=== PATIENT | male | born 1965 | race Caucasian/White ===

== ENCOUNTER 2020-10-17 12:56 | Inpatient (IN) ==
[2020-10-17] MEDS ORDERED: Perflutren Lipid Microsphere 1.3 ML in 0.9 % Sodium Chloride 8.7 ML IVP PRN (15:10)
[2020-10-17] MEDS ORDERED: Naloxone 0.4 MG/ML INJ IVP PRN (16:06)
[2020-10-17] MEDS ORDERED: Albuterol 2.5 MG/3 ML NEBULIZER IH PRN (16:08)
[2020-10-17] MEDS ORDERED: Simethicone 80 MG TAB.CHEW PO PRN (16:10)
[2020-10-17] MEDS ORDERED: *HR* OxyCODONE/APAP 5/325 TABLET GTUBE PRN (16:10)
[2020-10-17] MEDS ORDERED: HydrOXYzine SYP 10 MG/5 ML UDC GTUBE PRN (16:10)
[2020-10-17] MEDS ORDERED: Artificial Tears SOLN 15 ML BOTTLE BOTH EYES PRN (16:14)
[2020-10-17] MEDS ORDERED: FentaNYL (PF) 1,000 MCG/100 ML IV.SOLN IVC SCH (16:15)
[2020-10-17] MEDS ORDERED: Vancomycin 1 EACH in 0.9 % Sodium Chloride 250 ML IVPB PRN (17:00)
[2020-10-17] MEDS ORDERED: Piperacillin/Tazobactam 3.375 GM in 0.9 % Sodium Chloride Mini Bag 100 ML IVPB SCH (17:00)
[2020-10-17] MEDS: Piperacillin/Tazobactam 3.375 GM in 0.9 % Sodium Chloride Mini Bag 100 ML IVPB SCH (17:30)
[2020-10-17] MEDS: carvediloL 6.25 MG TABLET GTUBE SCH (17:30)
[2020-10-17 17:52] LABS: Blood Gas VT 400 cc; Mixed Venous Blood pCO2 52 mmHg (44-46); Mixed Venous Blood pH 7.31 pH Units (7.34-7.36); Mixed Venous Blood pO2 35 mmHg (35-45)
[2020-10-17] MEDS: Dexmedetomidine HCl 400 MCG/100 ML MLS IVC SCH (18:03)
[2020-10-17] MEDS: Ipratropium/Albuterol Neb 3 ML IH SCH ×2 (19:37→23:36)
[2020-10-17] MEDS: Artificial Tears SOLN 15 ML BOTTLE BOTH EYES SCH ×2 (20:43→23:30)
[2020-10-17] MEDS: Chlorhexidine Rinse 15 ML MOUTHWASH MM SCH (20:47)
[2020-10-17] MEDS: Metoclopramide 10 MG/10 ML UD.LIQ GTUBE SCH (20:47)
[2020-10-17] MEDS: Budesonide Neb 0.5 MG/2 ML IH SCH (23:36)
[2020-10-18] MEDS: Artificial Tears SOLN 15 ML BOTTLE BOTH EYES SCH ×6 (03:07→23:32)
[2020-10-18] MEDS: Ipratropium/Albuterol Neb 3 ML IH SCH ×6 (03:12→23:14)
[2020-10-18 05:37] LABS: Hematocrit 23.3 % (37.5-50.1); Hemoglobin 7.3 g/dL (12.9-16.9); Mean Corpuscular HGB Conc 31.3 g/dL (31.6-35.5); Mean Corpuscular Hemoglobin 30.5 pg (28.0-33.3); Mean Corpuscular Volume 97.5 fL (83.0-100.0); Mean Platelet Volume 9.2 fL (9.4-12.4); Platelet Count 187 K/mcL (140-400); Red Blood Count 2.39 M/mcL (4.19-5.50); Red Cell Distribution Width 15.4 % (11.5-14.5); White Blood Count 6.6 K/mcL (4.3-11.1)
[2020-10-18] MEDS: Piperacillin/Tazobactam 3.375 GM in 0.9 % Sodium Chloride Mini Bag 100 ML IVPB SCH ×2 (05:40→16:48)
[2020-10-18 05:45] LABS: INR 3.4; Prothrombin Time 37.6 Seconds (9.4-12.1)
[2020-10-18 05:56] LABS: Calcium 9.5 mg/dL (8.6-10.3); Magnesium 2.8 mg/dL (1.6-2.6); Potassium 5.2 mEq/L (3.5-5.1)
[2020-10-18] MEDS: Pantoprazole 40 MG VIAL IVP SCH (08:25)
[2020-10-18] MEDS: Ferrous Sulfate Oral Soln 300 MG/5 ML UDC GTUBE SCH (08:26)
[2020-10-18] MEDS: Sennosides/Docusate Sodium TABLET GTUBE SCH (08:26)
[2020-10-18] MEDS: Metoclopramide 10 MG/10 ML UD.LIQ GTUBE SCH ×3 (08:26→19:51)
[2020-10-18] MEDS: Chlorhexidine Rinse 15 ML MOUTHWASH MM SCH ×2 (08:26→19:51)
[2020-10-18] MEDS: Renal Vitamin 1 CAP CAPSULE PO SCH (08:27)
[2020-10-18] MEDS ORDERED: *HR* Heparin 10,000 UNIT/10 ML VIAL IV PRN (08:34)
[2020-10-18] MEDS ORDERED: 0.9 % Sodium Chloride 250 ML IVC PRN (08:34)
[2020-10-18] MEDS ORDERED: 0.9 % Sodium Chloride 1,000 ML PRIME SCH (08:45)
[2020-10-18 09:15] LABS: Hepatitis B Surface Antibody 33.24 mIU/mL
[2020-10-18 09:26] LABS: Hepatitis B Surface Antigen Nonreactive (Nonreactive)
[2020-10-18] MEDS: Budesonide Neb 0.5 MG/2 ML IH SCH ×2 (11:13→23:14)
[2020-10-18] MEDS: amLODIPine 5 MG TABLET PO SCH (13:26)
[2020-10-18] MEDS: carvediloL 6.25 MG TABLET GTUBE SCH ×2 (13:26→16:48)
[2020-10-18] MEDS ORDERED: Vancomycin 1,250 MG/262.5 ML IV.SOLN IVPB ONE (16:00)
[2020-10-18] MEDS: Dexmedetomidine HCl 400 MCG/100 ML MLS IVC SCH ×2 (19:52→22:02)
[2020-10-18] MEDS ORDERED: Melatonin 3 MG TABLET GTUBE SCH (21:00)
[2020-10-19] MEDS: Artificial Tears SOLN 15 ML BOTTLE BOTH EYES SCH ×6 (03:43→21:44)
[2020-10-19] MEDS: Ipratropium/Albuterol Neb 3 ML IH SCH ×7 (04:07→23:40)
[2020-10-19 05:50] LABS: Hematocrit 24.6 % (37.5-50.1); Hemoglobin 7.5 g/dL (12.9-16.9); Mean Corpuscular HGB Conc 30.5 g/dL (31.6-35.5); Mean Corpuscular Hemoglobin 29.9 pg (28.0-33.3); Mean Platelet Volume 8.9 fL (9.4-12.4); Platelet Count 185 K/mcL (140-400); Red Blood Count 2.51 M/mcL (4.19-5.50); Red Cell Distribution Width 15.4 % (11.5-14.5)
[2020-10-19 06:16] LABS: INR 3.5; Prothrombin Time 39.1 Seconds (9.4-12.1)
[2020-10-19] MEDS: Piperacillin/Tazobactam 3.375 GM in 0.9 % Sodium Chloride Mini Bag 100 ML IVPB SCH ×2 (06:51→17:53)
[2020-10-19] MEDS: Budesonide Neb 0.5 MG/2 ML IH SCH ×2 (07:28→23:26)
[2020-10-19 07:34] LABS: Calcium 9.4 mg/dL (8.6-10.3); Magnesium 2.4 mg/dL (1.6-2.6); Potassium 3.9 mEq/L (3.5-5.1)
[2020-10-19] MEDS ORDERED: 0.9 % Sodium Chloride 250 ML IVC PRN (07:55)
[2020-10-19] MEDS ORDERED: *HR* Heparin 10,000 UNIT/10 ML VIAL IV PRN (07:55)
[2020-10-19] MEDS: carvediloL 6.25 MG TABLET GTUBE SCH ×3 (08:08→17:52)
[2020-10-19] MEDS: Ferrous Sulfate Oral Soln 300 MG/5 ML UDC GTUBE SCH (08:50)
[2020-10-19] MEDS ORDERED: Zinc Sulfate 220 MG CAPSULE GTUBE SCH (09:00)
[2020-10-19] MEDS: amLODIPine 5 MG TABLET PO SCH (09:08)
[2020-10-19] MEDS: Chlorhexidine Rinse 15 ML MOUTHWASH MM SCH ×2 (09:41→21:43)
[2020-10-19] MEDS: Pantoprazole 40 MG VIAL IVP SCH (09:41)
[2020-10-19] MEDS: Metoclopramide 10 MG/10 ML UD.LIQ GTUBE SCH ×3 (09:41→21:43)
[2020-10-19] MEDS: Sennosides/Docusate Sodium TABLET GTUBE SCH (09:42)
[2020-10-19] MEDS: Renal Vitamin 1 CAP CAPSULE PO SCH (09:42)
[2020-10-19] MEDS ORDERED: Artificial Tears SOLN 15 ML BOTTLE BOTH EYES PRN (15:49)
[2020-10-19] MEDS ORDERED: Naloxone 0.4 MG/ML INJ IVP PRN (15:49)
[2020-10-19] MEDS ORDERED: Simethicone 80 MG TAB.CHEW PO PRN (15:49)
[2020-10-19] MEDS ORDERED: Perflutren Lipid Microsphere 1.3 ML in 0.9 % Sodium Chloride 8.7 ML IVP PRN (15:49)
[2020-10-19] MEDS ORDERED: 0.9 % Sodium Chloride 1,000 ML PRIME SCH (15:49)
[2020-10-19] MEDS ORDERED: Albuterol 2.5 MG/3 ML NEBULIZER IH PRN (15:49)
[2020-10-19] MEDS ORDERED: Piperacillin/Tazobactam 3.375 GM in 0.9 % Sodium Chloride Mini Bag 100 ML IVPB SCH ×2 (16:00→18:00)
[2020-10-19] MEDS ORDERED: levoFLOXacin 500 MG/100 ML 500 MG/100 ML BAG IVPB SCH (17:00)
[2020-10-19] MEDS: Melatonin 3 MG TABLET GTUBE SCH (21:43)
[2020-10-19] MEDS: Dexmedetomidine HCl 400 MCG/100 ML MLS IVC SCH (21:45)
[2020-10-20] MEDS: Artificial Tears SOLN 15 ML BOTTLE BOTH EYES SCH ×5 (03:27→20:29)
[2020-10-20] MEDS: Ipratropium/Albuterol Neb 3 ML IH SCH ×6 (04:16→23:17)
[2020-10-20] MEDS: Piperacillin/Tazobactam 3.375 GM in 0.9 % Sodium Chloride Mini Bag 100 ML IVPB SCH ×2 (04:44→16:38)
[2020-10-20] MEDS: Budesonide Neb 0.5 MG/2 ML IH SCH ×2 (07:38→19:54)
[2020-10-20] MEDS ORDERED: 0.9 % Sodium Chloride 250 ML IVC PRN (07:49)
[2020-10-20] MEDS ORDERED: *HR* Heparin 10,000 UNIT/10 ML VIAL IV PRN (07:49)
[2020-10-20] MEDS: carvediloL 6.25 MG TABLET GTUBE SCH ×2 (08:46→16:38)
[2020-10-20] MEDS: Ferrous Sulfate Oral Soln 300 MG/5 ML UDC GTUBE SCH (08:48)
[2020-10-20] MEDS: Metoclopramide 10 MG/10 ML UD.LIQ GTUBE SCH ×3 (08:48→20:28)
[2020-10-20] MEDS: Chlorhexidine Rinse 15 ML MOUTHWASH MM SCH ×2 (08:49→20:29)
[2020-10-20] MEDS: Sennosides/Docusate Sodium TABLET GTUBE SCH (08:49)
[2020-10-20] MEDS: Zinc Sulfate 220 MG CAPSULE GTUBE SCH (08:49)
[2020-10-20] MEDS: Pantoprazole 40 MG VIAL IVP SCH (08:49)
[2020-10-20] MEDS: Renal Vitamin 1 CAP CAPSULE PO SCH (08:50)
[2020-10-20] MEDS: Dexmedetomidine HCl 400 MCG/100 ML MLS IVC SCH ×3 (09:06→22:29)
[2020-10-20 09:07] LABS: Hematocrit 25.3 % (37.5-50.1); Hemoglobin 7.7 g/dL (12.9-16.9); Mean Corpuscular HGB Conc 30.4 g/dL (31.6-35.5); Mean Corpuscular Volume 98.4 fL (83.0-100.0); Mean Platelet Volume 9.2 fL (9.4-12.4); Platelet Count 197 K/mcL (140-400); Red Blood Count 2.57 M/mcL (4.19-5.50); Red Cell Distribution Width 15.2 % (11.5-14.5); White Blood Count 6.5 K/mcL (4.3-11.1)
[2020-10-20 09:14] LABS: INR 1.9; Prothrombin Time 21.1 Seconds (9.4-12.1)
[2020-10-20 09:27] LABS: Calcium 9.6 mg/dL (8.6-10.3); Magnesium 2.6 mg/dL (1.6-2.6); Potassium 4.2 mEq/L (3.5-5.1)
[2020-10-20] MEDS: amLODIPine 5 MG TABLET PO SCH (14:18)
[2020-10-20] MEDS ORDERED: Warfarin perPT PO PRN (18:00)
[2020-10-20] MEDS: *HR* Warfarin 5 MG TABLET PO SCH (18:39)
[2020-10-20] MEDS ORDERED: *HR* LORazepam 2 MG/ML VIAL IVP PRN (18:54)
[2020-10-20] MEDS: Melatonin 3 MG TABLET GTUBE SCH (20:28)
[2020-10-20] MEDS: *HR* OxyCODONE/APAP 5/325 TABLET GTUBE PRN (22:36)
[2020-10-20] MEDS: HydrOXYzine SYP 10 MG/5 ML UDC GTUBE PRN (22:36)
[2020-10-21] MEDS: Artificial Tears SOLN 15 ML BOTTLE BOTH EYES SCH ×6 (00:15→20:16)
[2020-10-21 03:08] LABS: Hematocrit 25.8 % (37.5-50.1); Mean Corpuscular Hemoglobin 30.3 pg (28.0-33.3); Mean Corpuscular Volume 97.7 fL (83.0-100.0); Mean Platelet Volume 9.2 fL (9.4-12.4); Platelet Count 193 K/mcL (140-400); Red Blood Count 2.64 M/mcL (4.19-5.50); Red Cell Distribution Width 15.2 % (11.5-14.5)
[2020-10-21 03:14] LABS: INR 1.7; Prothrombin Time 19.4 Seconds (9.4-12.1)
[2020-10-21 03:26] LABS: Calcium 9.3 mg/dL (8.6-10.3); Magnesium 2.2 mg/dL (1.6-2.6); Potassium 3.8 mEq/L (3.5-5.1)
[2020-10-21] MEDS: Ipratropium/Albuterol Neb 3 ML IH SCH ×6 (03:45→23:19)
[2020-10-21] MEDS: Piperacillin/Tazobactam 3.375 GM in 0.9 % Sodium Chloride Mini Bag 100 ML IVPB SCH ×2 (06:02→17:29)
[2020-10-21] MEDS: Budesonide Neb 0.5 MG/2 ML IH SCH ×2 (07:34→21:37)
[2020-10-21] MEDS: Metoclopramide 10 MG/10 ML UD.LIQ GTUBE SCH ×3 (09:06→20:15)
[2020-10-21] MEDS: carvediloL 6.25 MG TABLET GTUBE SCH ×2 (09:07→17:28)
[2020-10-21] MEDS: Pantoprazole 40 MG VIAL IVP SCH (09:07)
[2020-10-21] MEDS: *HR* Warfarin 5 MG TABLET PO SCH (09:07)
[2020-10-21] MEDS: Zinc Sulfate 220 MG CAPSULE GTUBE SCH (09:07)
[2020-10-21] MEDS: Chlorhexidine Rinse 15 ML MOUTHWASH MM SCH ×2 (09:07→20:15)
[2020-10-21] MEDS: Ferrous Sulfate Oral Soln 300 MG/5 ML UDC GTUBE SCH (09:07)
[2020-10-21] MEDS: Renal Vitamin 1 CAP CAPSULE PO SCH (09:08)
[2020-10-21] MEDS: amLODIPine 5 MG TABLET PO SCH (09:08)
[2020-10-21] MEDS: Sennosides/Docusate Sodium TABLET GTUBE SCH (09:08)
[2020-10-21] MEDS: *HR* OxyCODONE/APAP 5/325 TABLET GTUBE PRN ×2 (14:59→21:24)
[2020-10-21] MEDS: Melatonin 3 MG TABLET GTUBE SCH (20:15)
[2020-10-21] MEDS: HydrOXYzine SYP 10 MG/5 ML UDC GTUBE PRN (20:17)
[2020-10-22] MEDS: Artificial Tears SOLN 15 ML BOTTLE BOTH EYES SCH ×3 (00:46→09:18)
[2020-10-22 03:10] LABS: Hematocrit 26.4 % (37.5-50.1); Hemoglobin 8.3 g/dL (12.9-16.9); Mean Corpuscular HGB Conc 31.4 g/dL (31.6-35.5); Mean Corpuscular Hemoglobin 30.7 pg (28.0-33.3); Mean Corpuscular Volume 97.8 fL (83.0-100.0); Platelet Count 204 K/mcL (140-400); Red Cell Distribution Width 15.3 % (11.5-14.5); White Blood Count 7.5 K/mcL (4.3-11.1)
[2020-10-22 03:20] LABS: INR 1.7; Prothrombin Time 19.8 Seconds (9.4-12.1)
[2020-10-22 03:22] LABS: Calcium 9.7 mg/dL (8.6-10.3); Magnesium 2.3 mg/dL (1.6-2.6); Potassium 3.9 mEq/L (3.5-5.1)
[2020-10-22] MEDS: Ipratropium/Albuterol Neb 3 ML IH SCH ×4 (04:06→15:24)
[2020-10-22] MEDS: Piperacillin/Tazobactam 3.375 GM in 0.9 % Sodium Chloride Mini Bag 100 ML IVPB SCH (05:13)
[2020-10-22] MEDS: Budesonide Neb 0.5 MG/2 ML IH SCH (07:41)
[2020-10-22] MEDS: Chlorhexidine Rinse 15 ML MOUTHWASH MM SCH (09:16)
[2020-10-22] MEDS: Ferrous Sulfate Oral Soln 300 MG/5 ML UDC GTUBE SCH (09:16)
[2020-10-22] MEDS: Pantoprazole 40 MG VIAL IVP SCH (09:16)
[2020-10-22] MEDS: Sennosides/Docusate Sodium TABLET GTUBE SCH (09:17)
[2020-10-22] MEDS: carvediloL 6.25 MG TABLET GTUBE SCH (09:17)
[2020-10-22] MEDS: Renal Vitamin 1 CAP CAPSULE PO SCH (09:17)
[2020-10-22] MEDS: amLODIPine 5 MG TABLET PO SCH (09:17)
[2020-10-22] MEDS: Metoclopramide 10 MG/10 ML UD.LIQ GTUBE SCH (09:17)
[2020-10-22] MEDS: Zinc Sulfate 220 MG CAPSULE GTUBE SCH (09:17)
[2020-10-22 11:13] VITALS: BP 146/97; PULSE 96; TEMP 98.2; O2SAT 100
[2020-10-22 12:53] LABS: Adenovirus F 40/41 PCR Not detected (Not detect); Astrovirus PCR Not detected (Not detect); C.difficile Toxin A/B Gene PCR Not detected (Not detect); Campylobacter by PCR Not detected (Not detect); Cryptosporidium by PCR Not detected (Not detect); Cyclospora cayetanensis PCR Not detected (Not detect); E. coli O157 by PCR Not detected (Not detect); Entamoeba histolytica PCR Not detected (Not detect); Enteroaggregative E.coli(EAEC) Not detected (Not detect); Enteropathogenic E.coli(EPEC) Not detected (Not detect); Enterotoxigenic E.coli (ETEC) Not detected (Not detect); Giardia lamblia PCR Not detected (Not detect); Norovirus GI/GII PCR Not detected (Not detect); Plesiomonas shigelloides PCR Not detected (Not detect); Rotavirus A PCR Not detected (Not detect); Salmonella PCR Not detected (Not detect); Sapovirus PCR Not detected (Not detect); Shig/EnteroinvasiveE coli EIEC Not detected (Not detect); Shigalike tox-prod E coli STEC Not detected (Not detect); Vibrio PCR Not detected (Not detect); Vibrio cholerae PCR Not detected (Not detect); Yersinia enterocolitica PCR Not detected (Not detect)
[2020-10-22] MEDS ORDERED: *HR* Warfarin 5 MG TABLET PO ONE (18:00)
== END 2020-10-22 15:50 | DRG 208 ==
LOC: ICNU 15:00 → 2NNU 10-19 21:23
PROVIDERS: ADMIT Internal Medicine; ATTEND Internal Medicine

== ENCOUNTER 2021-01-22 18:54 | Inpatient (IN) ==
[2021-01-22] MEDS ORDERED: Isovue-370 500 ML BOTTLE IVP ONE (19:23)
[2021-01-22 19:56] LABS: Basophils % 0.1 %; Eosinophils # 0.1 K/mcL (0.0-0.6); Eosinophils % 1.3 %; Hematocrit 22.4 % (37.5-50.1); Hemoglobin 6.6 g/dL (12.9-16.9); Immature Granulocytes % 0.5 % (0-4); Lymphocytes # 0.2 K/mcL (0.6-4.6); Lymphocytes % 2.7 %; Mean Corpuscular HGB Conc 29.5 g/dL (31.6-35.5); Mean Corpuscular Hemoglobin 25.7 pg (28.0-33.3); Mean Corpuscular Volume 87.2 fL (83.0-100.0); Mean Platelet Volume 9.2 fL (9.4-12.4); Monocytes # 0.8 K/mcL (0.0-1.3); Neutrophils # 7.4 K/mcL (1.6-8.9); Platelet Count 284 K/mcL (140-400); Red Blood Count 2.57 M/mcL (4.19-5.50); Red Cell Distribution Width 17.2 % (11.5-14.5); Segmented Neutrophils % 86.4 %; White Blood Count 8.6 K/mcL (4.3-11.1)
[2021-01-22 20:01] LABS: INR 3.5; Prothrombin Time 38.4 Seconds (9.4-12.1)
[2021-01-22 20:03] LABS: Activated Partial Thrombo Time 66.1 Seconds (26.0-36.0)
[2021-01-22 21:35] LABS: Albumin 2.8 g/dL (3.5-5.7); Albumin/Globulin Ratio 0.6 (1.1-2.2); Bilirubin,Total 0.4 mg/dL (0.3-1.0); Calcium 8.8 mg/dL (8.6-10.3); Globulin 4.4 g/dL (2.4-3.5); Total Protein 7.2 g/dL (6.4-8.9)
[2021-01-22] MEDS ORDERED: *HR* Enoxaparin 80 MG/0.8 ML SYRINGE SQ STA (22:55)
[2021-01-23] MEDS ORDERED: Ondansetron 4 MG/2 ML VIAL IVP PRN (00:23)
[2021-01-23] MEDS ORDERED: Naloxone 0.4 MG/ML INJ IVP PRN (00:23)
[2021-01-23] MEDS: Albuterol 2.5 MG/3 ML NEBULIZER IH SCH ×3 (03:27→20:47)
[2021-01-23] MEDS: cefTRIAXone 1,000 MG in Water for inj. (sterile) 10 ML IVP SCH (03:28)
[2021-01-23] MEDS: Pantoprazole 40 MG VIAL IVP SCH ×3 (03:29→17:09)
[2021-01-23] MEDS ORDERED: *HR* Labetalol 20 MG/4 ML SYRINGE IVP ONE (05:15)
[2021-01-23] MEDS: Budesonide Neb 0.5 MG/2 ML IH SCH ×2 (08:17→20:47)
[2021-01-23 08:27] LABS: Basophils % 0.1 %; Eosinophils % 0.1 %; Hematocrit 25.6 % (37.5-50.1); Hemoglobin 8.1 g/dL (12.9-16.9); Immature Granulocytes % 0.3 % (0-4); Lymphocytes # 0.2 K/mcL (0.6-4.6); Lymphocytes % 1.9 %; Mean Corpuscular HGB Conc 31.6 g/dL (31.6-35.5); Mean Corpuscular Hemoglobin 27.1 pg (28.0-33.3); Mean Corpuscular Volume 85.6 fL (83.0-100.0); Mean Platelet Volume 9.2 fL (9.4-12.4); Monocytes # 0.1 K/mcL (0.0-1.3); Monocytes % 1.4 %; Neutrophils # 7.5 K/mcL (1.6-8.9); Platelet Count 271 K/mcL (140-400); Red Blood Count 2.99 M/mcL (4.19-5.50); Red Cell Distribution Width 16.7 % (11.5-14.5); Segmented Neutrophils % 96.2 %; White Blood Count 7.8 K/mcL (4.3-11.1)
[2021-01-23] MEDS: amLODIPine 5 MG TABLET PO SCH (08:54)
[2021-01-23] MEDS: carvediloL 6.25 MG TABLET PO SCH ×2 (08:54→17:09)
[2021-01-23 08:57] LABS: Calcium 9.2 mg/dL (8.6-10.3); Magnesium 1.9 mg/dL (1.6-2.6); Phosphorous 2.7 mg/dL (2.7-4.5); Potassium 3.6 mEq/L (3.5-5.1)
[2021-01-23 09:46] LABS: Hypochromasia Present (Not Present); Platelet Estimate Normal (Normal); Rouleaux Present (Not Present)
[2021-01-23 10:06] LABS: Estimated Average Glucose 91 mg/dl; Hemoglobin A1C 4.8 %
[2021-01-23] MEDS ORDERED: *HR* Warfarin 5 MG TABLET PO SCH (11:00)
[2021-01-23 12:22] LABS: INR 3.2; Prothrombin Time 35.3 Seconds (9.4-12.1)
[2021-01-23 14:40] LABS: Thyroid Stimulating Hormone 57.762 mcIU/mL (0.340-5.600)
[2021-01-23] MEDS ORDERED: Acetaminophen 325 MG TABLET PO ONE (16:45)
[2021-01-23] MEDS ORDERED: Warfarin perPT PO PRN (18:00)
[2021-01-23] MEDS ORDERED: traZODone 50 MG TABLET PO PRN (20:38)
[2021-01-23] MEDS ORDERED: Acetaminophen 325 MG TABLET PO PRN (20:39)
[2021-01-23] MEDS ORDERED: *HR* Warfarin 4 MG TABLET PO ONE (21:00)
[2021-01-24 02:53] LABS: Basophils % 0.2 %; Eosinophils # 0.1 K/mcL (0.0-0.6); Eosinophils % 1.1 %; Hematocrit 24.1 % (37.5-50.1); Hemoglobin 7.6 g/dL (12.9-16.9); Immature Granulocytes % 0.3 % (0-4); Lymphocytes # 0.3 K/mcL (0.6-4.6); Lymphocytes % 5.2 %; Mean Corpuscular HGB Conc 31.5 g/dL (31.6-35.5); Mean Corpuscular Hemoglobin 27.4 pg (28.0-33.3); Mean Platelet Volume 8.9 fL (9.4-12.4); Monocytes # 0.5 K/mcL (0.0-1.3); Monocytes % 8.4 %; Neutrophils # 5.2 K/mcL (1.6-8.9); Platelet Count 244 K/mcL (140-400); Red Blood Count 2.77 M/mcL (4.19-5.50); Red Cell Distribution Width 17.2 % (11.5-14.5); Segmented Neutrophils % 84.8 %; White Blood Count 6.1 K/mcL (4.3-11.1)
[2021-01-24 03:03] LABS: INR 3.7; Prothrombin Time 40.8 Seconds (9.4-12.1)
[2021-01-24 03:15] LABS: Calcium 9.4 mg/dL (8.6-10.3)
[2021-01-24] MEDS: Pantoprazole 40 MG VIAL IVP SCH (05:21)
[2021-01-24] MEDS: Albuterol 2.5 MG/3 ML NEBULIZER IH SCH ×2 (08:05→21:20)
[2021-01-24] MEDS: Budesonide Neb 0.5 MG/2 ML IH SCH ×2 (08:05→21:20)
[2021-01-24] MEDS ORDERED: 0.9 % Sodium Chloride 250 ML IVC PRN (08:51)
[2021-01-24] MEDS ORDERED: *HR* Heparin 10,000 UNIT/10 ML VIAL IV PRN (08:51)
[2021-01-24] MEDS ORDERED: 0.9 % Sodium Chloride 1,000 ML PRIME SCH (09:00)
[2021-01-24] MEDS: cefTRIAXone 1,000 MG in Water for inj. (sterile) 10 ML IVP SCH (09:44)
[2021-01-24] MEDS ORDERED: E-Z-PAQUE (BARIUM SULF) SUSP 1 BOTTLE PO ONE (10:50)
[2021-01-24] MEDS ORDERED: E-Z-HD (BARIUM SULF) SUSPENSION PO ONE (10:50)
[2021-01-24 11:59] VITALS: O2SAT 100
[2021-01-24] MEDS: carvediloL 6.25 MG TABLET PO SCH (12:29)
[2021-01-24] MEDS ORDERED: D5% in Water 1,000 ML IVC PRN (13:10)
[2021-01-24] MEDS ORDERED: *HR* Dextrose 50 % in Water (Syg) 50 ML SYRINGE IVP PRN (13:10)
[2021-01-24] MEDS ORDERED: Dextrose Gel 15 GM/37.5 ML TUBE PO PRN ×2 (13:10)
[2021-01-24] MEDS ORDERED: HydrOXYzine SYP 10 MG/5 ML UDC GTUBE PRN (14:55)
[2021-01-24] MEDS: Metoclopramide 10 MG/10 ML UD.LIQ GTUBE SCH (18:31)
[2021-01-24] MEDS: amLODIPine 5 MG TABLET PO SCH (18:31)
[2021-01-24] MEDS ORDERED: traZODone 50 MG TABLET GTUBE SCH (21:00)
[2021-01-24] MEDS ORDERED: carvediloL 6.25 MG TABLET GTUBE SCH (21:00)
[2021-01-25] MEDS: Chlorhexidine Rinse 15 ML MOUTHWASH MM SCH ×2 (00:11→08:31)
[2021-01-25] MEDS: Metoclopramide 10 MG/10 ML UD.LIQ GTUBE SCH (00:11)
[2021-01-25 06:28] LABS: Basophils % 0.2 %; Eosinophils # 0.1 K/mcL (0.0-0.6); Eosinophils % 1.7 %; Hematocrit 25.2 % (37.5-50.1); Hemoglobin 7.9 g/dL (12.9-16.9); Immature Granulocytes % 0.2 % (0-4); Lymphocytes # 0.3 K/mcL (0.6-4.6); Lymphocytes % 5.1 %; Mean Corpuscular HGB Conc 31.3 g/dL (31.6-35.5); Mean Corpuscular Hemoglobin 27.1 pg (28.0-33.3); Mean Corpuscular Volume 86.3 fL (83.0-100.0); Mean Platelet Volume 8.7 fL (9.4-12.4); Monocytes # 0.4 K/mcL (0.0-1.3); Monocytes % 8.1 %; Neutrophils # 4.6 K/mcL (1.6-8.9); Platelet Count 240 K/mcL (140-400); Red Blood Count 2.92 M/mcL (4.19-5.50); Red Cell Distribution Width 17.2 % (11.5-14.5); Segmented Neutrophils % 84.7 %; White Blood Count 5.4 K/mcL (4.3-11.1)
[2021-01-25 06:33] LABS: INR 3.5; Prothrombin Time 39.1 Seconds (9.4-12.1)
[2021-01-25 06:48] LABS: Albumin 2.7 g/dL (3.5-5.7); Albumin/Globulin Ratio 0.6 (1.1-2.2); Bilirubin,Total 0.4 mg/dL (0.3-1.0); Calcium 9.3 mg/dL (8.6-10.3); Globulin 4.2 g/dL (2.4-3.5); Potassium 4.3 mEq/L (3.5-5.1); Total Protein 6.9 g/dL (6.4-8.9)
[2021-01-25 07:42] VITALS: PULSE 73; TEMP 98
[2021-01-25] MEDS ORDERED: hydrOXYzine pamoate 25 MG CAPSULE PO PRN (07:45)
[2021-01-25] MEDS: Albuterol 2.5 MG/3 ML NEBULIZER IH SCH ×2 (07:47→21:00)
[2021-01-25] MEDS: Budesonide Neb 0.5 MG/2 ML IH SCH ×2 (07:48→21:00)
[2021-01-25] MEDS: amLODIPine 5 MG TABLET PO SCH (08:31)
[2021-01-25] MEDS ORDERED: carvediloL 6.25 MG TABLET PO SCH (09:00)
[2021-01-25 11:48] VITALS: BP 128/80
[2021-01-25 13:03] LABS: Adenovirus Not Detected (Not Detect); Bordetella Pertussis Not Detected (Not Detect); Chlamydophila pneumoniae Not Detected (Not Detect); Coronavirus 229E Not Detected (Not Detect); Coronavirus HKU1 Not Detected (Not Detect); Coronavirus NL63 Not Detected (Not Detect); Coronavirus OC43 Not Detected (Not Detect); Human Metapneumovirus Not Detected (Not Detect); Human Rhinovirus/Enterovirus Not Detected (Not Detect); Influenza A Subtype 2009 H1 Not Detected (Not Detect); Influenza B Not Detected (Not Detect); Mycoplasma pneumoniae Not Detected (Not Detect); Parainfluenza Virus 1 Not Detected (Not Detect); Parainfluenza Virus 2 Not Detected (Not Detect); Parainfluenza Virus 3 Not Detected (Not Detect); Parainfluenza Virus 4 Not Detected (Not Detect); Respiratory Syncytial Virus Not Detected (Not Detect); SARS-CoV-2 Not Detected (Not Detect)
[2021-01-25] MEDS ORDERED: traZODone 50 MG TABLET PO SCH (21:00)
== END 2021-01-26 07:34 | DRG 606 ==
LOC: 2NNU 18:54 → EMEROOARM 18:54 → SUATTDRO 01-23 00:16 → 2NNU 01-23 02:40
PROVIDERS: ADMIT Family Medicine; ATTEND Internal Medicine

== ENCOUNTER 2021-03-06 22:03 | Inpatient (IN) ==
[2021-03-07] MEDS ORDERED: *HR* Dextrose 50 % in Water (Syg) 50 ML SYRINGE ONE (03:19)
[2021-03-07] MEDS: *HR* Dextrose 50 % in Water (Syg) 50 ML SYRINGE IVP PRN ×2 (03:20→04:00)
[2021-03-07] MEDS ORDERED: D5% in Water 1,000 ML IVC PRN (03:28)
[2021-03-07] MEDS ORDERED: Dextrose Gel 15 GM/37.5 ML TUBE PO PRN (03:28)
[2021-03-07] MEDS ORDERED: Naloxone 0.4 MG/ML INJ IVP PRN (03:54)
[2021-03-07] MEDS ORDERED: cefTRIAXone 1,000 MG in Water for inj. (sterile) 10 ML IVP SCH (05:29)
[2021-03-07] MEDS ORDERED: 0.9 % Sodium Chloride 1,000 ML IVC ONE (05:43)
[2021-03-07] MEDS ORDERED: *HR* Labetalol 20 MG/4 ML SYRINGE IVP PRN ×3 (05:52→07:32)
[2021-03-07] MEDS: MethylPREDNISolone 40 MG/ML VIAL IVP SCH ×3 (06:05→21:49)
[2021-03-07] MEDS: Azithromycin 500 MG in 0.9 % Sodium Chloride 250 ML IVPB SCH (06:06)
[2021-03-07] MEDS: Ipratropium/Albuterol Neb 3 ML IH SCH ×4 (07:36→20:42)
[2021-03-07 08:33] LABS: Hematocrit 33.9 % (37.5-50.1); Hemoglobin 9.8 g/dL (12.9-16.9); Lymphocytes # 0.1 K/mcL (0.6-4.6); Mean Corpuscular HGB Conc 28.9 g/dL (31.6-35.5); Mean Corpuscular Hemoglobin 28.5 pg (28.0-33.3); Mean Corpuscular Volume 98.5 fL (83.0-100.0); Mean Platelet Volume 9.3 fL (9.4-12.4); Platelet Count 181 K/mcL (140-400); Red Blood Count 3.44 M/mcL (4.19-5.50); Red Cell Distribution Width 23.9 % (11.5-14.5); White Blood Count 7.6 K/mcL (4.3-11.1)
[2021-03-07 08:39] LABS: INR 1.4; Prothrombin Time 15.1 Seconds (9.4-12.1)
[2021-03-07 08:42] LABS: Activated Partial Thrombo Time 38.3 Seconds (26.0-36.0)
[2021-03-07 08:48] LABS: Calcium 8.8 mg/dL (8.6-10.3); Potassium 6.3 mEq/L (3.5-5.1)
[2021-03-07 08:55] LABS: Troponin I 0.09 ng/mL (< 0.04)
[2021-03-07] MEDS: Aspirin 81 MG TAB.CHEW GTUBE SCH (08:56)
[2021-03-07 08:57] LABS: Anisocytosis 2+ (Not Present); Monocytes # 0.3 K/mcL (0.0-1.3); Neutrophils # 7.2 K/mcL (1.6-8.9); Platelet Estimate Normal (Normal)
[2021-03-07 08:58] LABS: Large Platelets Present (Not Present); Poikilocytosis 1+ (Not Present)
[2021-03-07] MEDS ORDERED: SODIUM ZIRCONIUM CYCLOSILICATE 5 GM POWD.PACK PO SCH (09:00)
[2021-03-07 09:03] LABS: Albumin 3.2 g/dL (3.5-5.7); Albumin/Globulin Ratio 0.9 (1.1-2.2); Bilirubin,Direct 0.2 mg/dL (0.0-0.2); Bilirubin,Indirect 0.4 mg/dL (0.0-1.0); Bilirubin,Total 0.6 mg/dL (0.3-1.0); Globulin 3.6 g/dL (2.4-3.5); Total Protein 6.8 g/dL (6.4-8.9)
[2021-03-07 09:45] LABS: VBG HCO3 22 mEq/L (21-27); VBG PCO2 37 mmHg (41-51); VBG PH 7.38 pH Units (7.32-7.42); VBG PO2 197 mmHg (25-50)
[2021-03-07 10:30] LABS: Adenovirus Not Detected (Not Detect); Bordetella Pertussis Not Detected (Not Detect); Chlamydophila pneumoniae Not Detected (Not Detect); Coronavirus 229E Not Detected (Not Detect); Coronavirus HKU1 Not Detected (Not Detect); Coronavirus NL63 Not Detected (Not Detect); Coronavirus OC43 Not Detected (Not Detect); Human Metapneumovirus Not Detected (Not Detect); Human Rhinovirus/Enterovirus Not Detected (Not Detect); Influenza A Subtype 2009 H1 Not Detected (Not Detect); Influenza B Not Detected (Not Detect); Mycoplasma pneumoniae Not Detected (Not Detect); Parainfluenza Virus 1 Not Detected (Not Detect); Parainfluenza Virus 2 Not Detected (Not Detect); Parainfluenza Virus 3 Not Detected (Not Detect); Parainfluenza Virus 4 Not Detected (Not Detect); Respiratory Syncytial Virus Not Detected (Not Detect); SARS-CoV-2 Not Detected (Not Detect)
[2021-03-07] MEDS ORDERED: 0.9 % Sodium Chloride 250 ML IVC PRN (10:58)
[2021-03-07] MEDS ORDERED: *HR* Heparin 10,000 UNIT/10 ML VIAL IV PRN (10:58)
[2021-03-07] MEDS ORDERED: 0.9 % Sodium Chloride 1,000 ML PRIME SCH (11:00)
[2021-03-07] MEDS ORDERED: *HR* Midazolam HCl 5 MG/5 ML VIAL IVP ONE (11:54)
[2021-03-07] MEDS ORDERED: Lidocaine Viscous Oral Soln 15 ML SOLUTION ONE (11:56)
[2021-03-07] MEDS ORDERED: *HR* Midazolam HCl 2 MG/2 ML VIAL IVP ONE (12:10)
[2021-03-07] MEDS ORDERED: *HR* FentaNYL (PF) 100 MCG/2 ML VIAL IVP ONE (12:11)
[2021-03-07 12:22] LABS: Calcium 8.9 mg/dL (8.6-10.3); Potassium 6.6 mEq/L (3.5-5.1)
[2021-03-07] MEDS: *HR* FentaNYL (PF) 100 MCG/2 ML VIAL ONE ×2 (12:33→12:37)
[2021-03-07] MEDS ORDERED: Sennosides/Docusate Sodium TABLET GTUBE PRN (13:09)
[2021-03-07] MEDS: Melatonin 3 MG TABLET GTUBE SCH (20:27)
[2021-03-07] MEDS: traZODone 50 MG TABLET GTUBE SCH (20:27)
[2021-03-07] MEDS: Chlorhexidine Rinse 15 ML MOUTHWASH MM SCH (20:27)
[2021-03-07] MEDS: Budesonide Neb 0.5 MG/2 ML IH SCH (20:42)
[2021-03-07 20:44] LABS: Potassium 4.7 mEq/L (3.5-5.1)
[2021-03-07] MEDS ORDERED: Vancomycin 1,250 MG/262.5 ML IV.SOLN IVPB ONE (21:00)
[2021-03-08] MEDS: Piperacillin/Tazobactam 3.375 GM in 0.9 % Sodium Chloride Mini Bag 100 ML IVPB SCH ×3 (00:13→23:00)
[2021-03-08] MEDS: Ipratropium/Albuterol Neb 3 ML IH SCH ×7 (00:14→23:22)
[2021-03-08] MEDS: MethylPREDNISolone 40 MG/ML VIAL IVP SCH ×3 (05:11→23:00)
[2021-03-08] MEDS: Azithromycin 500 MG in 0.9 % Sodium Chloride 250 ML IVPB SCH (05:11)
[2021-03-08 05:51] LABS: Hematocrit 27.2 % (37.5-50.1); Hemoglobin 8.3 g/dL (12.9-16.9); Immature Granulocytes % 0.2 % (0-4); Lymphocytes # 0.1 K/mcL (0.6-4.6); Lymphocytes % 0.7 %; Mean Corpuscular HGB Conc 30.5 g/dL (31.6-35.5); Mean Corpuscular Hemoglobin 28.8 pg (28.0-33.3); Mean Corpuscular Volume 94.4 fL (83.0-100.0); Mean Platelet Volume 9.3 fL (9.4-12.4); Monocytes # 0.1 K/mcL (0.0-1.3); Monocytes % 1.6 %; Neutrophils # 8.6 K/mcL (1.6-8.9); Platelet Count 162 K/mcL (140-400); Red Blood Count 2.88 M/mcL (4.19-5.50); Red Cell Distribution Width 23.7 % (11.5-14.5); Segmented Neutrophils % 97.5 %; White Blood Count 8.8 K/mcL (4.3-11.1)
[2021-03-08 06:12] LABS: Calcium 8.8 mg/dL (8.6-10.3); Potassium 5.3 mEq/L (3.5-5.1)
[2021-03-08 06:20] LABS: Anisocytosis 1+ (Not Present); Platelet Estimate Normal (Normal)
[2021-03-08 06:21] LABS: Basophilic Stippling 1+ (Not Present)
[2021-03-08] MEDS: Budesonide Neb 0.5 MG/2 ML IH SCH ×2 (08:05→20:06)
[2021-03-08] MEDS: Renal Vitamin 1 CAP CAPSULE PO SCH (08:40)
[2021-03-08] MEDS: Chlorhexidine Rinse 15 ML MOUTHWASH MM SCH ×2 (08:40→20:12)
[2021-03-08] MEDS: Aspirin 81 MG TAB.CHEW GTUBE SCH (08:40)
[2021-03-08] MEDS ORDERED: THEOPHYLLINE ANHYDROUS 300 MG PO SCH (09:00)
[2021-03-08] MEDS: *HR* Metoprolol 5 MG/5 ML VIAL IVP PRN (12:33)
[2021-03-08] MEDS: *HR* LORazepam 2 MG/ML VIAL IVP PRN (13:52)
[2021-03-08] MEDS: amLODIPine 5 MG TABLET GTUBE SCH ×2 (16:03→20:12)
[2021-03-08] MEDS: *HR* OxyCODONE/APAP 5/325 TABLET GTUBE PRN (16:03)
[2021-03-08] MEDS: carvediloL 6.25 MG TABLET GTUBE SCH (16:03)
[2021-03-08] MEDS: hydrOXYzine pamoate 25 MG CAPSULE PO PRN (16:06)
[2021-03-08] MEDS: traZODone 50 MG TABLET GTUBE SCH (20:12)
[2021-03-08] MEDS: Melatonin 3 MG TABLET GTUBE SCH (20:12)
[2021-03-09] MEDS: Ipratropium/Albuterol Neb 3 ML IH SCH ×6 (03:45→23:33)
[2021-03-09] MEDS: MethylPREDNISolone 40 MG/ML VIAL IVP SCH ×3 (05:41→20:33)
[2021-03-09] MEDS: Azithromycin 500 MG in 0.9 % Sodium Chloride 250 ML IVPB SCH (05:41)
[2021-03-09 06:22] LABS: Hematocrit 27.2 % (37.5-50.1); Hemoglobin 8.4 g/dL (12.9-16.9); Mean Corpuscular HGB Conc 30.9 g/dL (31.6-35.5); Mean Corpuscular Hemoglobin 29.3 pg (28.0-33.3); Mean Corpuscular Volume 94.8 fL (83.0-100.0); Mean Platelet Volume 8.8 fL (9.4-12.4); Platelet Count 143 K/mcL (140-400); Red Blood Count 2.87 M/mcL (4.19-5.50); Red Cell Distribution Width 22.8 % (11.5-14.5); White Blood Count 8.3 K/mcL (4.3-11.1)
[2021-03-09 06:39] LABS: Potassium 6.5 mEq/L (3.5-5.1)
[2021-03-09] MEDS ORDERED: Insulin Human Regular 10 UNIT in 0.9 % Sodium Chloride 10 ML IV ONE (06:41)
[2021-03-09] MEDS ORDERED: *HR* Dextrose 50 % in Water (Vial) 50 ML VIAL IVP ONE (06:42)
[2021-03-09] MEDS ORDERED: 0.9 % Sodium Chloride 250 ML IVC PRN (07:48)
[2021-03-09] MEDS ORDERED: *HR* Heparin 10,000 UNIT/10 ML VIAL IV PRN (07:48)
[2021-03-09] MEDS: Renal Vitamin 1 CAP CAPSULE PO SCH (07:53)
[2021-03-09] MEDS: amLODIPine 5 MG TABLET GTUBE SCH ×2 (07:53→20:34)
[2021-03-09] MEDS: Aspirin 81 MG TAB.CHEW GTUBE SCH (07:53)
[2021-03-09] MEDS: carvediloL 6.25 MG TABLET GTUBE SCH ×2 (07:53→17:22)
[2021-03-09] MEDS: Chlorhexidine Rinse 15 ML MOUTHWASH MM SCH ×2 (07:54→20:33)
[2021-03-09] MEDS: Calcium Gluconate 1gm/50mL 1 GM/50 ML BAG IVPB SCH ×2 (07:54→08:37)
[2021-03-09] MEDS ORDERED: 0.9 % Sodium Chloride 1,000 ML PRIME SCH (08:00)
[2021-03-09] MEDS: Budesonide Neb 0.5 MG/2 ML IH SCH ×2 (08:07→19:36)
[2021-03-09 08:49] LABS: Neutrophils # 8.3 K/mcL (1.6-8.9); Platelet Estimate Normal (Normal)
[2021-03-09 08:50] LABS: Anisocytosis 1+ (Not Present)
[2021-03-09] MEDS: Piperacillin/Tazobactam 3.375 GM in 0.9 % Sodium Chloride Mini Bag 100 ML IVPB SCH (15:22)
[2021-03-09] MEDS: hydrOXYzine pamoate 25 MG CAPSULE PO PRN (17:23)
[2021-03-09] MEDS ORDERED: Vancomycin 1,250 MG/262.5 ML IV.SOLN IVPB ONE (18:00)
[2021-03-09 18:10] LABS: Potassium 4.3 mEq/L (3.5-5.1)
[2021-03-09] MEDS: Melatonin 3 MG TABLET GTUBE SCH (20:34)
[2021-03-09] MEDS: traZODone 50 MG TABLET GTUBE SCH (20:34)
[2021-03-09] MEDS: Apixaban 5 MG TABLET GTUBE SCH (20:34)
[2021-03-10] MEDS: Piperacillin/Tazobactam 3.375 GM in 0.9 % Sodium Chloride Mini Bag 100 ML IVPB SCH ×3 (00:27→23:34)
[2021-03-10] MEDS: Ipratropium/Albuterol Neb 3 ML IH SCH ×6 (03:28→23:40)
[2021-03-10] MEDS: Azithromycin 500 MG in 0.9 % Sodium Chloride 250 ML IVPB SCH (04:21)
[2021-03-10] MEDS: MethylPREDNISolone 40 MG/ML VIAL IVP SCH ×3 (04:21→23:34)
[2021-03-10 05:34] LABS: Hematocrit 29.2 % (37.5-50.1); Hemoglobin 8.7 g/dL (12.9-16.9); Immature Granulocytes % 0.4 % (0-4); Lymphocytes % 0.6 %; Mean Corpuscular HGB Conc 29.8 g/dL (31.6-35.5); Mean Corpuscular Hemoglobin 28.2 pg (28.0-33.3); Mean Corpuscular Volume 94.5 fL (83.0-100.0); Mean Platelet Volume 9.4 fL (9.4-12.4); Monocytes # 0.2 K/mcL (0.0-1.3); Monocytes % 2.5 %; Neutrophils # 6.7 K/mcL (1.6-8.9); Platelet Count 136 K/mcL (140-400); Red Blood Count 3.09 M/mcL (4.19-5.50); Red Cell Distribution Width 22.5 % (11.5-14.5); Segmented Neutrophils % 96.5 %; White Blood Count 6.9 K/mcL (4.3-11.1)
[2021-03-10 05:49] LABS: Calcium 8.9 mg/dL (8.6-10.3); Potassium 4.8 mEq/L (3.5-5.1)
[2021-03-10 06:08] LABS: Anisocytosis 1+ (Not Present); Hypochromasia Present (Not Present); Platelet Estimate Normal (Normal); Poikilocytosis 1+ (Not Present)
[2021-03-10] MEDS: Budesonide Neb 0.5 MG/2 ML IH SCH ×2 (07:33→19:59)
[2021-03-10] MEDS: Renal Vitamin 1 CAP CAPSULE PO SCH (07:41)
[2021-03-10] MEDS: Aspirin 81 MG TAB.CHEW GTUBE SCH (07:41)
[2021-03-10] MEDS: Apixaban 5 MG TABLET GTUBE SCH ×2 (07:42→19:47)
[2021-03-10] MEDS: amLODIPine 5 MG TABLET GTUBE SCH ×2 (07:42→19:47)
[2021-03-10] MEDS: Chlorhexidine Rinse 15 ML MOUTHWASH MM SCH ×2 (07:43→19:47)
[2021-03-10] MEDS: carvediloL 6.25 MG TABLET GTUBE SCH ×2 (07:46→15:38)
[2021-03-10] MEDS ORDERED: Acetaminophen 325 MG TABLET PO PRN (09:52)
[2021-03-10] MEDS: hydrOXYzine pamoate 25 MG CAPSULE PO PRN ×2 (10:36→18:47)
[2021-03-10] MEDS ORDERED: Sulfamethoxazole/Trimeth DS 1 EACH TABLET PO ONE (16:14)
[2021-03-10] MEDS: traZODone 50 MG TABLET GTUBE SCH (19:48)
[2021-03-10] MEDS: Melatonin 3 MG TABLET GTUBE SCH (19:48)
[2021-03-11] MEDS: Ipratropium/Albuterol Neb 3 ML IH SCH ×6 (03:27→23:48)
[2021-03-11] MEDS: Azithromycin 500 MG in 0.9 % Sodium Chloride 250 ML IVPB SCH (04:37)
[2021-03-11] MEDS: MethylPREDNISolone 40 MG/ML VIAL IVP SCH ×2 (04:38→14:48)
[2021-03-11 05:25] LABS: Basophils % 0.1 %; Hematocrit 29.1 % (37.5-50.1); Immature Granulocytes % 1.1 % (0-4); Lymphocytes # 0.1 K/mcL (0.6-4.6); Lymphocytes % 0.5 %; Mean Corpuscular HGB Conc 30.9 g/dL (31.6-35.5); Mean Corpuscular Hemoglobin 28.6 pg (28.0-33.3); Mean Corpuscular Volume 92.4 fL (83.0-100.0); Mean Platelet Volume 8.6 fL (9.4-12.4); Monocytes # 0.2 K/mcL (0.0-1.3); Monocytes % 2.2 %; Platelet Count 127 K/mcL (140-400); Red Blood Count 3.15 M/mcL (4.19-5.50); Red Cell Distribution Width 22.1 % (11.5-14.5); Segmented Neutrophils % 96.1 %; White Blood Count 9.4 K/mcL (4.3-11.1)
[2021-03-11 06:10] LABS: Anisocytosis 3+ (Not Present); Hypochromasia Present (Not Present); Platelet Estimate Slight Decrease (Normal)
[2021-03-11] MEDS: Aspirin 81 MG TAB.CHEW GTUBE SCH (07:25)
[2021-03-11] MEDS: amLODIPine 5 MG TABLET GTUBE SCH ×2 (07:25→19:48)
[2021-03-11] MEDS: Renal Vitamin 1 CAP CAPSULE PO SCH (07:25)
[2021-03-11] MEDS: carvediloL 6.25 MG TABLET GTUBE SCH ×2 (07:25→17:09)
[2021-03-11] MEDS: Apixaban 5 MG TABLET GTUBE SCH ×2 (07:25→19:49)
[2021-03-11] MEDS: *HR* LORazepam 2 MG/ML VIAL IVP PRN ×2 (07:26→17:22)
[2021-03-11] MEDS: Chlorhexidine Rinse 15 ML MOUTHWASH MM SCH ×2 (07:26→19:48)
[2021-03-11 09:18] LABS: Calcium 8.6 mg/dL (8.6-10.3); Potassium 5.4 mEq/L (3.5-5.1)
[2021-03-11] MEDS: *HR* Labetalol 20 MG/4 ML SYRINGE IVP PRN ×3 (10:00→16:24)
[2021-03-11] MEDS ORDERED: *HR* Labetalol 20 MG/4 ML SYRINGE IVP ONE (10:29)
[2021-03-11] MEDS: Budesonide Neb 0.5 MG/2 ML IH SCH ×2 (11:26→19:59)
[2021-03-11] MEDS: Piperacillin/Tazobactam 3.375 GM in 0.9 % Sodium Chloride Mini Bag 100 ML IVPB SCH (11:40)
[2021-03-11] MEDS: SODIUM ZIRCONIUM CYCLOSILICATE 5 GM POWD.PACK PO SCH (14:48)
[2021-03-11] MEDS: Sulfamethoxazole/Trimeth DS 1 EACH TABLET PO SCH (18:26)
[2021-03-11] MEDS: Melatonin 3 MG TABLET GTUBE SCH (19:48)
[2021-03-11] MEDS: traZODone 50 MG TABLET GTUBE SCH (19:48)
[2021-03-12] MEDS: Piperacillin/Tazobactam 3.375 GM in 0.9 % Sodium Chloride Mini Bag 100 ML IVPB SCH ×2 (00:19→12:03)
[2021-03-12] MEDS: MethylPREDNISolone 40 MG/ML VIAL IVP SCH (00:19)
[2021-03-12] MEDS: Ipratropium/Albuterol Neb 3 ML IH SCH ×5 (04:00→20:18)
[2021-03-12] MEDS: Budesonide Neb 0.5 MG/2 ML IH SCH ×2 (07:45→20:18)
[2021-03-12 07:57] LABS: Hematocrit 25.4 % (37.5-50.1); Hemoglobin 7.7 g/dL (12.9-16.9); Mean Corpuscular HGB Conc 30.3 g/dL (31.6-35.5); Mean Corpuscular Hemoglobin 28.5 pg (28.0-33.3); Mean Corpuscular Volume 94.1 fL (83.0-100.0); Mean Platelet Volume 9.3 fL (9.4-12.4); Nucleated Red Blood Cells 0.1 /100 WBC (0); Platelet Count 128 K/mcL (140-400); Red Cell Distribution Width 22.2 % (11.5-14.5)
[2021-03-12 07:58] LABS: White Blood Count 18.7 K/mcL (4.3-11.1)
[2021-03-12 08:16] LABS: Calcium 8.3 mg/dL (8.6-10.3); Potassium 5.7 mEq/L (3.5-5.1)
[2021-03-12] MEDS: hydrOXYzine pamoate 25 MG CAPSULE PO PRN (08:26)
[2021-03-12] MEDS: Aspirin 81 MG TAB.CHEW GTUBE SCH (08:26)
[2021-03-12] MEDS: Apixaban 5 MG TABLET GTUBE SCH ×2 (08:26→23:24)
[2021-03-12] MEDS: *HR* OxyCODONE/APAP 5/325 TABLET GTUBE PRN (08:26)
[2021-03-12] MEDS: carvediloL 6.25 MG TABLET GTUBE SCH ×2 (08:26→17:18)
[2021-03-12] MEDS: Sulfamethoxazole/Trimeth DS 1 EACH TABLET PO SCH (08:27)
[2021-03-12] MEDS: Chlorhexidine Rinse 15 ML MOUTHWASH MM SCH ×2 (08:27→22:27)
[2021-03-12] MEDS: amLODIPine 5 MG TABLET GTUBE SCH ×2 (08:27→22:35)
[2021-03-12] MEDS: Renal Vitamin 1 CAP CAPSULE PO SCH (08:27)
[2021-03-12] MEDS: predniSONE 20 MG TABLET PO SCH (08:27)
[2021-03-12] MEDS ORDERED: 0.9 % Sodium Chloride 250 ML IVC PRN (08:32)
[2021-03-12] MEDS ORDERED: *HR* Heparin 10,000 UNIT/10 ML VIAL IV PRN (08:32)
[2021-03-12] MEDS ORDERED: 0.9 % Sodium Chloride 1,000 ML PRIME SCH (08:45)
[2021-03-12 08:49] LABS: Monocytes # 0.8 K/mcL (0.0-1.3); Toxic Granulation Present (Not Present)
[2021-03-12 08:51] LABS: Platelet Estimate Slight Decrease (Normal)
[2021-03-12 08:52] LABS: Anisocytosis 2+ (Not Present); Hypochromasia Present (Not Present); Poikilocytosis 1+ (Not Present)
[2021-03-12] MEDS: SODIUM ZIRCONIUM CYCLOSILICATE 5 GM POWD.PACK PO SCH (09:18)
[2021-03-12 15:44] LABS: Basophils % 0.1 %; Red Cell Distribution Width 22.5 % (11.5-14.5)
[2021-03-12 15:46] LABS: Hematocrit 19.5 % (37.5-50.1); Immature Granulocytes % 0.9 % (0-4); Lymphocytes # 0.1 K/mcL (0.6-4.6); Lymphocytes % 0.5 %; Mean Corpuscular HGB Conc 30.3 g/dL (31.6-35.5); Mean Corpuscular Hemoglobin 28.5 pg (28.0-33.3); Mean Corpuscular Volume 94.2 fL (83.0-100.0); Mean Platelet Volume 9.4 fL (9.4-12.4); Monocytes # 0.5 K/mcL (0.0-1.3); Monocytes % 2.9 %; Neutrophils # 16.3 K/mcL (1.6-8.9); Nucleated Red Blood Cells 0.1 /100 WBC (0); Platelet Count 132 K/mcL (140-400); Red Blood Count 2.07 M/mcL (4.19-5.50); Segmented Neutrophils % 95.6 %
[2021-03-12 15:50] LABS: Hemoglobin 5.9 g/dL (12.9-16.9)
[2021-03-12 16:00] LABS: Adenovirus F 40/41 PCR Not detected (Not detect); Astrovirus PCR Not detected (Not detect); C.difficile Toxin A/B Gene PCR Not detected (Not detect); Campylobacter by PCR Not detected (Not detect); Cryptosporidium by PCR Not detected (Not detect); Cyclospora cayetanensis PCR Not detected (Not detect); E. coli O157 by PCR Not detected (Not detect); Entamoeba histolytica PCR Not detected (Not detect); Enteroaggregative E.coli(EAEC) Not detected (Not detect); Enteropathogenic E.coli(EPEC) Not detected (Not detect); Enterotoxigenic E.coli (ETEC) Not detected (Not detect); Giardia lamblia PCR Not detected (Not detect); Norovirus GI/GII PCR Not detected (Not detect); Plesiomonas shigelloides PCR Not detected (Not detect); Rotavirus A PCR Not detected (Not detect); Salmonella PCR Not detected (Not detect); Sapovirus PCR Not detected (Not detect); Shig/EnteroinvasiveE coli EIEC Not detected (Not detect); Shigalike tox-prod E coli STEC Not detected (Not detect); Vibrio PCR Not detected (Not detect); Vibrio cholerae PCR Not detected (Not detect); Yersinia enterocolitica PCR Not detected (Not detect)
[2021-03-12 16:43] LABS: Platelet Estimate Normal (Normal)
[2021-03-12] MEDS: *HR* LORazepam 2 MG/ML VIAL IVP PRN (17:04)
[2021-03-12] MEDS ORDERED: 0.9 % Sodium Chloride 250 ML ONE ×2 (18:20→23:55)
[2021-03-12] MEDS: *HR* Metoprolol 5 MG/5 ML VIAL IVP PRN (22:19)
[2021-03-12] MEDS: traZODone 50 MG TABLET GTUBE SCH (22:28)
[2021-03-12] MEDS: Melatonin 3 MG TABLET GTUBE SCH (22:28)
[2021-03-12 22:44] LABS: Hematocrit 22.3 % (37.5-50.1); Hemoglobin 6.9 g/dL (12.9-16.9)
[2021-03-13] MEDS: Ipratropium/Albuterol Neb 3 ML IH SCH ×6 (00:25→21:11)
[2021-03-13] MEDS: *HR* LORazepam 2 MG/ML VIAL IVP PRN ×2 (02:14→09:26)
[2021-03-13] MEDS: Piperacillin/Tazobactam 3.375 GM in 0.9 % Sodium Chloride Mini Bag 100 ML IVPB SCH ×3 (03:24→23:04)
[2021-03-13] MEDS: *HR* Metoprolol 5 MG/5 ML VIAL IVP PRN (04:07)
[2021-03-13 05:52] LABS: Basophils % 0.1 %; Eosinophils % 0.1 %; Hemoglobin 6.7 g/dL (12.9-16.9); Immature Granulocytes % 0.8 % (0-4); Lymphocytes # 0.2 K/mcL (0.6-4.6); Lymphocytes % 1.1 %; Mean Corpuscular HGB Conc 31.9 g/dL (31.6-35.5); Mean Corpuscular Volume 90.9 fL (83.0-100.0); Mean Platelet Volume 9.9 fL (9.4-12.4); Monocytes # 0.8 K/mcL (0.0-1.3); Monocytes % 5.2 %; Neutrophils # 14.4 K/mcL (1.6-8.9); Nucleated Red Blood Cells 0.2 /100 WBC (0); Platelet Count 113 K/mcL (140-400); Red Blood Count 2.31 M/mcL (4.19-5.50); Red Cell Distribution Width 19.8 % (11.5-14.5); Segmented Neutrophils % 92.7 %; White Blood Count 15.5 K/mcL (4.3-11.1)
[2021-03-13 05:55] LABS: Calcium 7.8 mg/dL (8.6-10.3); Potassium 4.3 mEq/L (3.5-5.1)
[2021-03-13] MEDS: Budesonide Neb 0.5 MG/2 ML IH SCH ×2 (07:34→21:11)
[2021-03-13] MEDS ORDERED: 0.9 % Sodium Chloride 250 ML ONE ×3 (09:07→22:20)
[2021-03-13] MEDS: Renal Vitamin 1 CAP CAPSULE PO SCH (09:21)
[2021-03-13] MEDS: predniSONE 20 MG TABLET PO SCH (09:21)
[2021-03-13] MEDS: amLODIPine 5 MG TABLET GTUBE SCH ×2 (09:21→21:27)
[2021-03-13] MEDS: hydrOXYzine pamoate 25 MG CAPSULE PO PRN (09:21)
[2021-03-13] MEDS: carvediloL 6.25 MG TABLET GTUBE SCH ×2 (09:22→20:38)
[2021-03-13] MEDS: Chlorhexidine Rinse 15 ML MOUTHWASH MM SCH ×2 (09:23→21:27)
[2021-03-13] MEDS: Aspirin 81 MG TAB.CHEW GTUBE SCH (09:23)
[2021-03-13] MEDS ORDERED: Pantoprazole 40 MG VIAL IVP SCH (09:46)
[2021-03-13] MEDS ORDERED: Octreotide 400 MCG in 0.9 % Sodium Chloride 100 ML IVC SCH (10:00)
[2021-03-13 10:09] LABS: Hematocrit 20.2 % (37.5-50.1); Hemoglobin 6.5 g/dL (12.9-16.9)
[2021-03-13] MEDS: *HR* Digoxin 0.5 MG/2 ML AMPUL IVP SCH ×2 (11:00→21:59)
[2021-03-13] MEDS ORDERED: SODIUM CHLORIDE/NAHCO3/KCL/PEG 4,000 ML SOLN.RECON PO ONE (17:00)
[2021-03-13] MEDS ORDERED: *HR* Propofol 200 MG/20 ML VIAL IVP ONE (17:18)
[2021-03-13] MEDS ORDERED: Lidocaine -MPF 2% 5 ML VIAL ONE (17:19)
[2021-03-13] MEDS ORDERED: Calcium Gluconate 1,000 MG/10 ML VIAL ONE (17:41)
[2021-03-13] MEDS ORDERED: Pantoprazole 80 MG in 0.9 % Sodium Chloride 50 ML IVC ONE (18:00)
[2021-03-13] MEDS ORDERED: *HR* EPINEPHrine 1 MG/10 ML SYRINGE ONE (18:26)
[2021-03-13] MEDS ORDERED: Pantoprazole 40 MG in 0.9 % Sodium Chloride Mini Bag 100 ML IVC SCH (18:30)
[2021-03-13 19:15] LABS: Basophils % 0.1 %; Eosinophils % 0.2 %; Nucleated Red Blood Cells 0.2 /100 WBC (0); Red Blood Count 2.23 M/mcL (4.19-5.50)
[2021-03-13 19:17] LABS: Hematocrit 20.8 % (37.5-50.1); Hemoglobin 6.5 g/dL (12.9-16.9); Immature Granulocytes % 1.2 % (0-4); Immature Platelets 3.2 % (1.1-6.1); Lymphocytes # 0.1 K/mcL (0.6-4.6); Lymphocytes % 0.8 %; Mean Corpuscular HGB Conc 31.3 g/dL (31.6-35.5); Mean Corpuscular Hemoglobin 29.1 pg (28.0-33.3); Mean Corpuscular Volume 93.3 fL (83.0-100.0); Mean Platelet Volume 9.9 fL (9.4-12.4); Monocytes # 0.4 K/mcL (0.0-1.3); Neutrophils # 11.9 K/mcL (1.6-8.9); Platelet Count 101 K/mcL (140-400); Red Cell Distribution Width 17.9 % (11.5-14.5); Segmented Neutrophils % 94.7 %; White Blood Count 12.6 K/mcL (4.3-11.1)
[2021-03-13 19:29] LABS: INR 1.6; Prothrombin Time 17.4 Seconds (9.4-12.1)
[2021-03-13 19:31] LABS: Calcium 8.7 mg/dL (8.6-10.3)
[2021-03-13] MEDS: Pantoprazole 40 MG in 0.9 % Sodium Chloride Mini Bag 100 ML IVC SCH ×2 (20:00→22:54)
[2021-03-13 20:02] LABS: Anisocytosis 1+ (Not Present); Hypochromasia Present (Not Present); Platelet Estimate Slight Decrease (Normal)
[2021-03-13] MEDS: traZODone 50 MG TABLET GTUBE SCH (21:27)
[2021-03-13] MEDS: Melatonin 3 MG TABLET GTUBE SCH (21:35)
[2021-03-13 21:36] LABS: Hematocrit 17.8 % (37.5-50.1)
[2021-03-13 21:45] LABS: Hemoglobin 5.6 g/dL (12.9-16.9)
[2021-03-14] MEDS: Ipratropium/Albuterol Neb 3 ML IH SCH ×7 (00:05→23:55)
[2021-03-14] MEDS: *HR* LORazepam 2 MG/ML VIAL IVP PRN ×2 (01:44→12:41)
[2021-03-14 02:58] LABS: Hematocrit 22.5 % (37.5-50.1); Hemoglobin 7.2 g/dL (12.9-16.9)
[2021-03-14] MEDS ORDERED: *HR* Digoxin 0.5 MG/2 ML AMPUL IVP SCH (04:00)
[2021-03-14] MEDS: Pantoprazole 40 MG in 0.9 % Sodium Chloride Mini Bag 100 ML IVC SCH ×3 (04:09→20:20)
[2021-03-14 04:53] LABS: Eosinophils # 0.1 K/mcL (0.0-0.6); Eosinophils % 0.7 %; Hematocrit 21.1 % (37.5-50.1); Hemoglobin 6.9 g/dL (12.9-16.9); Immature Granulocytes % 0.8 % (0-4); Immature Platelets 3.6 % (1.1-6.1); Lymphocytes # 0.2 K/mcL (0.6-4.6); Lymphocytes % 1.7 %; Mean Corpuscular HGB Conc 32.7 g/dL (31.6-35.5); Mean Corpuscular Hemoglobin 29.9 pg (28.0-33.3); Mean Corpuscular Volume 91.3 fL (83.0-100.0); Monocytes # 0.4 K/mcL (0.0-1.3); Red Blood Count 2.31 M/mcL (4.19-5.50); Red Cell Distribution Width 16.7 % (11.5-14.5); Segmented Neutrophils % 91.8 %; White Blood Count 8.7 K/mcL (4.3-11.1)
[2021-03-14 04:54] LABS: Platelet Count 94 K/mcL (140-400)
[2021-03-14 05:07] LABS: Calcium 8.2 mg/dL (8.6-10.3); Potassium 4.7 mEq/L (3.5-5.1)
[2021-03-14] MEDS ORDERED: 0.9 % Sodium Chloride 250 ML ONE (05:17)
[2021-03-14 05:27] LABS: Anisocytosis 1+ (Not Present); Microcytosis Present (Not Present); Poikilocytosis 1+ (Not Present)
[2021-03-14 05:28] LABS: Platelet Estimate Slight Decrease (Normal)
[2021-03-14] MEDS: Budesonide Neb 0.5 MG/2 ML IH SCH ×2 (07:10→19:55)
[2021-03-14] MEDS ORDERED: *HR* Heparin 10,000 UNIT/10 ML VIAL IV PRN (08:10)
[2021-03-14] MEDS ORDERED: 0.9 % Sodium Chloride 250 ML IVC PRN (08:10)
[2021-03-14] MEDS: amLODIPine 5 MG TABLET GTUBE SCH ×2 (10:44→21:13)
[2021-03-14] MEDS: predniSONE 20 MG TABLET PO SCH (10:44)
[2021-03-14] MEDS: carvediloL 6.25 MG TABLET GTUBE SCH ×2 (10:44→21:13)
[2021-03-14] MEDS: Chlorhexidine Rinse 15 ML MOUTHWASH MM SCH ×2 (10:44→20:21)
[2021-03-14] MEDS: Renal Vitamin 1 CAP CAPSULE PO SCH (10:44)
[2021-03-14] MEDS: Piperacillin/Tazobactam 3.375 GM in 0.9 % Sodium Chloride Mini Bag 100 ML IVPB SCH ×2 (11:31→23:05)
[2021-03-14 12:10] LABS: Hematocrit 27.5 % (37.5-50.1)
[2021-03-14 12:18] LABS: INR 1.4; Prothrombin Time 15.4 Seconds (9.4-12.1)
[2021-03-14 12:24] LABS: Hemoglobin 9.1 g/dL (12.9-16.9)
[2021-03-14] MEDS: Melatonin 3 MG TABLET GTUBE SCH (21:16)
[2021-03-14] MEDS: traZODone 50 MG TABLET GTUBE SCH (21:16)
[2021-03-14 21:44] LABS: Hematocrit 24.2 % (37.5-50.1); Hemoglobin 7.9 g/dL (12.9-16.9)
[2021-03-15] MEDS: Pantoprazole 40 MG in 0.9 % Sodium Chloride Mini Bag 100 ML IVC SCH ×2 (04:10→04:12)
[2021-03-15] MEDS: Ipratropium/Albuterol Neb 3 ML IH SCH ×5 (04:10→20:32)
[2021-03-15] MEDS: *HR* LORazepam 2 MG/ML VIAL IVP PRN (04:30)
[2021-03-15 05:23] LABS: Hemoglobin 7.6 g/dL (12.9-16.9); Red Cell Distribution Width 16.6 % (11.5-14.5)
[2021-03-15 05:25] LABS: Hematocrit 23.5 % (37.5-50.1); Immature Platelets 2.7 % (1.1-6.1); Mean Corpuscular HGB Conc 32.3 g/dL (31.6-35.5); Mean Corpuscular Hemoglobin 29.7 pg (28.0-33.3); Mean Corpuscular Volume 91.8 fL (83.0-100.0); Red Blood Count 2.56 M/mcL (4.19-5.50); White Blood Count 10.3 K/mcL (4.3-11.1)
[2021-03-15 05:59] LABS: Calcium 8.3 mg/dL (8.6-10.3); Potassium 3.9 mEq/L (3.5-5.1)
[2021-03-15] MEDS: Budesonide Neb 0.5 MG/2 ML IH SCH ×2 (08:16→20:32)
[2021-03-15] MEDS: Renal Vitamin 1 CAP CAPSULE PO SCH (08:21)
[2021-03-15] MEDS: amLODIPine 5 MG TABLET GTUBE SCH ×2 (08:21→20:13)
[2021-03-15] MEDS: carvediloL 6.25 MG TABLET GTUBE SCH ×2 (08:21→16:30)
[2021-03-15] MEDS: predniSONE 20 MG TABLET PO SCH (08:21)
[2021-03-15] MEDS: Chlorhexidine Rinse 15 ML MOUTHWASH MM SCH ×2 (08:21→20:14)
[2021-03-15] MEDS: Piperacillin/Tazobactam 3.375 GM in 0.9 % Sodium Chloride Mini Bag 100 ML IVPB SCH ×2 (11:29→21:34)
[2021-03-15] MEDS: Pantoprazole 40 MG VIAL IVP SCH (16:33)
[2021-03-15] MEDS: traZODone 50 MG TABLET GTUBE SCH (20:14)
[2021-03-15] MEDS: Melatonin 3 MG TABLET GTUBE SCH (20:14)
[2021-03-15] MEDS: hydrOXYzine pamoate 25 MG CAPSULE PO PRN (20:14)
[2021-03-16] MEDS: Ipratropium/Albuterol Neb 3 ML IH SCH ×7 (00:37→23:14)
[2021-03-16] MEDS: Pantoprazole 40 MG VIAL IVP SCH ×2 (05:35→17:55)
[2021-03-16 06:50] LABS: Hemoglobin 8.1 g/dL (12.9-16.9); Mean Corpuscular HGB Conc 33.8 g/dL (31.6-35.5); Mean Corpuscular Hemoglobin 31.2 pg (28.0-33.3); Mean Corpuscular Volume 92.3 fL (83.0-100.0); Mean Platelet Volume 10.8 fL (9.4-12.4); Platelet Count 112 K/mcL (140-400); White Blood Count 10.6 K/mcL (4.3-11.1)
[2021-03-16 07:08] LABS: Calcium 9.1 mg/dL (8.6-10.3)
[2021-03-16] MEDS: Budesonide Neb 0.5 MG/2 ML IH SCH ×2 (07:27→19:43)
[2021-03-16] MEDS ORDERED: 0.9 % Sodium Chloride 250 ML IVC PRN (08:31)
[2021-03-16] MEDS ORDERED: *HR* Heparin 10,000 UNIT/10 ML VIAL IV PRN (08:31)
[2021-03-16] MEDS ORDERED: 0.9 % Sodium Chloride 1,000 ML PRIME SCH (08:45)
[2021-03-16] MEDS: Chlorhexidine Rinse 15 ML MOUTHWASH MM SCH ×2 (09:05→20:00)
[2021-03-16] MEDS: amLODIPine 5 MG TABLET GTUBE SCH ×2 (09:18→20:00)
[2021-03-16] MEDS: carvediloL 6.25 MG TABLET GTUBE SCH (09:19)
[2021-03-16] MEDS: Renal Vitamin 1 CAP CAPSULE PO SCH (09:19)
[2021-03-16] MEDS: Piperacillin/Tazobactam 3.375 GM in 0.9 % Sodium Chloride Mini Bag 100 ML IVPB SCH ×2 (15:00→23:19)
[2021-03-16] MEDS ORDERED: Colistin (Colistimethate) 300 MG in 0.9 % Sodium Chloride 50 ML IVPB ONE (17:00)
[2021-03-16] MEDS ORDERED: Colistin (Colistimethate) 150 MG VIAL IVPB ONE (17:00)
[2021-03-16] MEDS: *HR* LORazepam 2 MG/ML VIAL IVP PRN (17:55)
[2021-03-16] MEDS: carvediloL 25 MG TABLET PO SCH (17:55)
[2021-03-16] MEDS: traZODone 50 MG TABLET GTUBE SCH (20:00)
[2021-03-16] MEDS: Melatonin 3 MG TABLET GTUBE SCH (20:00)
[2021-03-17] MEDS: Ipratropium/Albuterol Neb 3 ML IH SCH ×6 (03:54→23:58)
[2021-03-17] MEDS: Pantoprazole 40 MG VIAL IVP SCH (04:00)
[2021-03-17] MEDS: Budesonide Neb 0.5 MG/2 ML IH SCH ×2 (07:24→19:27)
[2021-03-17 07:43] LABS: Calcium 8.4 mg/dL (8.6-10.3); Potassium 3.7 mEq/L (3.5-5.1)
[2021-03-17] MEDS: Chlorhexidine Rinse 15 ML MOUTHWASH MM SCH ×2 (08:38→19:45)
[2021-03-17] MEDS: amLODIPine 5 MG TABLET GTUBE SCH ×2 (08:38→19:45)
[2021-03-17] MEDS: carvediloL 25 MG TABLET PO SCH ×2 (08:38→16:14)
[2021-03-17] MEDS: Renal Vitamin 1 CAP CAPSULE PO SCH (08:39)
[2021-03-17 09:36] LABS: Basophils % 0.1 %; Eosinophils # 0.1 K/mcL (0.0-0.6); Eosinophils % 0.6 %; Hematocrit 23.8 % (37.5-50.1); Hemoglobin 7.7 g/dL (12.9-16.9); Immature Granulocytes % 0.4 % (0-4); Lymphocytes # 0.1 K/mcL (0.6-4.6); Mean Corpuscular HGB Conc 32.4 g/dL (31.6-35.5); Mean Corpuscular Hemoglobin 30.3 pg (28.0-33.3); Mean Corpuscular Volume 93.7 fL (83.0-100.0); Mean Platelet Volume 10.2 fL (9.4-12.4); Monocytes # 0.5 K/mcL (0.0-1.3); Monocytes % 4.5 %; Neutrophils # 10.5 K/mcL (1.6-8.9); Platelet Count 101 K/mcL (140-400); Red Blood Count 2.54 M/mcL (4.19-5.50); Red Cell Distribution Width 17.3 % (11.5-14.5); Segmented Neutrophils % 93.4 %; White Blood Count 11.2 K/mcL (4.3-11.1)
[2021-03-17 10:13] LABS: Platelet Estimate Decreased (Normal)
[2021-03-17] MEDS: Piperacillin/Tazobactam 3.375 GM in 0.9 % Sodium Chloride Mini Bag 100 ML IVPB SCH ×2 (11:33→19:46)
[2021-03-17] MEDS: Colistin (Colistimethate) 130 MG in 0.9 % Sodium Chloride 50 ML IVPB SCH (16:14)
[2021-03-17] MEDS ORDERED: Colistin (Colistimethate) 150 MG VIAL IVPB SCH (17:00)
[2021-03-17] MEDS: traZODone 50 MG TABLET GTUBE SCH (19:45)
[2021-03-17] MEDS: Melatonin 3 MG TABLET GTUBE SCH (19:45)
[2021-03-18] MEDS: Piperacillin/Tazobactam 3.375 GM in 0.9 % Sodium Chloride Mini Bag 100 ML IVPB SCH ×4 (03:22→23:00)
[2021-03-18] MEDS: Ipratropium/Albuterol Neb 3 ML IH SCH ×5 (03:43→20:27)
[2021-03-18 04:01] LABS: Hematocrit 20.9 % (37.5-50.1); Hemoglobin 6.8 g/dL (12.9-16.9); Mean Corpuscular HGB Conc 32.5 g/dL (31.6-35.5); Mean Corpuscular Hemoglobin 30.8 pg (28.0-33.3); Mean Corpuscular Volume 94.6 fL (83.0-100.0); Mean Platelet Volume 10.3 fL (9.4-12.4); Platelet Count 102 K/mcL (140-400); Red Blood Count 2.21 M/mcL (4.19-5.50); Red Cell Distribution Width 17.9 % (11.5-14.5); White Blood Count 10.4 K/mcL (4.3-11.1)
[2021-03-18 04:22] LABS: Calcium 8.4 mg/dL (8.6-10.3); Potassium 3.6 mEq/L (3.5-5.1)
[2021-03-18] MEDS: *HR* Dextrose 50 % in Water (Syg) 50 ML SYRINGE IVP PRN ×6 (04:29→22:58)
[2021-03-18] MEDS: carvediloL 25 MG TABLET PO SCH ×2 (08:00→17:22)
[2021-03-18] MEDS: amLODIPine 5 MG TABLET GTUBE SCH ×2 (08:00→20:19)
[2021-03-18] MEDS ORDERED: 0.9 % Sodium Chloride 250 ML IVC ONE (09:05)
[2021-03-18] MEDS: Renal Vitamin 1 CAP CAPSULE PO SCH (10:49)
[2021-03-18] MEDS: Chlorhexidine Rinse 15 ML MOUTHWASH MM SCH ×2 (10:49→20:18)
[2021-03-18] MEDS: Budesonide Neb 0.5 MG/2 ML IH SCH ×2 (12:24→20:27)
[2021-03-18] MEDS: D5% in Water 1,000 ML IVC SCH (16:09)
[2021-03-18 16:39] LABS: Hematocrit 22.5 % (37.5-50.1); Hemoglobin 7.2 g/dL (12.9-16.9)
[2021-03-18] MEDS: Colistin (Colistimethate) 130 MG in 0.9 % Sodium Chloride 50 ML IVPB SCH (17:21)
[2021-03-18] MEDS ORDERED: Albumin 25% 25gram/100mL 25 GM/100 ML IV.SOLN IVPB ONE (17:45)
[2021-03-18] MEDS: Melatonin 3 MG TABLET GTUBE SCH (20:27)
[2021-03-19] MEDS: Ipratropium/Albuterol Neb 3 ML IH SCH ×6 (00:02→19:36)
[2021-03-19 03:36] LABS: Eosinophils # 0.1 K/mcL (0.0-0.6); Eosinophils % 1.1 %; Hematocrit 22.3 % (37.5-50.1); Hemoglobin 7.3 g/dL (12.9-16.9); Immature Granulocytes % 0.4 % (0-4); Lymphocytes # 0.2 K/mcL (0.6-4.6); Lymphocytes % 2.2 %; Mean Corpuscular HGB Conc 32.7 g/dL (31.6-35.5); Mean Corpuscular Hemoglobin 30.5 pg (28.0-33.3); Mean Corpuscular Volume 93.3 fL (83.0-100.0); Monocytes # 0.4 K/mcL (0.0-1.3); Neutrophils # 7.5 K/mcL (1.6-8.9); Platelet Count 101 K/mcL (140-400); Red Blood Count 2.39 M/mcL (4.19-5.50); Red Cell Distribution Width 17.5 % (11.5-14.5); Segmented Neutrophils % 91.3 %; White Blood Count 8.2 K/mcL (4.3-11.1)
[2021-03-19 03:59] LABS: Calcium 8.3 mg/dL (8.6-10.3); Potassium 3.7 mEq/L (3.5-5.1)
[2021-03-19] MEDS: Budesonide Neb 0.5 MG/2 ML IH SCH (07:29)
[2021-03-19] MEDS ORDERED: 0.9 % Sodium Chloride 250 ML IVC PRN (07:51)
[2021-03-19] MEDS ORDERED: Piperacillin/Tazobactam 3.375 GM in 0.9 % Sodium Chloride Mini Bag 100 ML IVPB SCH (08:00)
[2021-03-19] MEDS ORDERED: 0.9 % Sodium Chloride 1,000 ML PRIME SCH (08:00)
[2021-03-19] MEDS ORDERED: *HR* Heparin 10,000 UNIT/10 ML VIAL IV PRN (08:01)
[2021-03-19] MEDS: carvediloL 25 MG TABLET PO SCH ×2 (08:59→16:35)
[2021-03-19] MEDS: amLODIPine 5 MG TABLET GTUBE SCH (09:00)
[2021-03-19] MEDS: Renal Vitamin 1 CAP CAPSULE PO SCH (09:09)
[2021-03-19] MEDS: Piperacillin/Tazobactam 3.375 GM in 0.9 % Sodium Chloride Mini Bag 100 ML IVPB SCH (09:09)
[2021-03-19] MEDS: D5% in Water 1,000 ML IVC SCH (09:10)
[2021-03-19] MEDS: Chlorhexidine Rinse 15 ML MOUTHWASH MM SCH (09:10)
[2021-03-19] MEDS ORDERED: Iron Sucrose Complex 400 MG in 0.9 % Sodium Chloride 250 ML IVPB ONE (16:00)
[2021-03-19] MEDS ORDERED: Colistin (Colistimethate) 150 MG VIAL IVPB SCH (17:00)
[2021-03-19] MEDS ORDERED: Colistin (Colistimethate) 180 MG in 0.9 % Sodium Chloride 50 ML IVPB SCH (17:00)
[2021-03-19] MEDS: *HR* Dextrose 50 % in Water (Syg) 50 ML SYRINGE IVP PRN ×4 (17:19→23:21)
[2021-03-20] MEDS: Ipratropium/Albuterol Neb 3 ML IH SCH ×7 (00:22→23:23)
[2021-03-20] MEDS: Budesonide Neb 0.5 MG/2 ML IH SCH ×3 (00:22→20:25)
[2021-03-20] MEDS: amLODIPine 5 MG TABLET GTUBE SCH ×3 (00:29→21:00)
[2021-03-20] MEDS: Mirtazapine 15 MG TABLET GTUBE SCH ×2 (00:47→20:57)
[2021-03-20] MEDS: Chlorhexidine Rinse 15 ML MOUTHWASH MM SCH ×3 (00:47→20:57)
[2021-03-20] MEDS: traZODone 50 MG TABLET GTUBE SCH ×2 (00:47→20:57)
[2021-03-20] MEDS: Melatonin 3 MG TABLET GTUBE SCH ×2 (00:47→20:58)
[2021-03-20] MEDS: D10% in Water 500 ML IVC SCH ×2 (00:48→10:00)
[2021-03-20] MEDS: Piperacillin/Tazobactam 3.375 GM in 0.9 % Sodium Chloride Mini Bag 100 ML IVPB SCH ×3 (01:41→21:01)
[2021-03-20] MEDS: Dextrose Gel 15 GM/37.5 ML TUBE PO PRN ×2 (01:53→03:15)
[2021-03-20] MEDS: *HR* Dextrose 50 % in Water (Syg) 50 ML SYRINGE IVP PRN ×2 (03:47→20:52)
[2021-03-20 06:23] LABS: Basophils % 0.1 %; Eosinophils # 0.1 K/mcL (0.0-0.6); Eosinophils % 1.1 %; Hematocrit 24.1 % (37.5-50.1); Hemoglobin 7.7 g/dL (12.9-16.9); Immature Granulocytes % 0.6 % (0-4); Lymphocytes # 0.2 K/mcL (0.6-4.6); Lymphocytes % 1.6 %; Mean Corpuscular Hemoglobin 29.7 pg (28.0-33.3); Mean Corpuscular Volume 93.1 fL (83.0-100.0); Mean Platelet Volume 10.1 fL (9.4-12.4); Monocytes # 0.4 K/mcL (0.0-1.3); Monocytes % 4.2 %; Neutrophils # 9.6 K/mcL (1.6-8.9); Platelet Count 126 K/mcL (140-400); Red Blood Count 2.59 M/mcL (4.19-5.50); Red Cell Distribution Width 17.4 % (11.5-14.5); Segmented Neutrophils % 92.4 %; White Blood Count 10.4 K/mcL (4.3-11.1)
[2021-03-20 06:47] LABS: Calcium 8.3 mg/dL (8.6-10.3); Potassium 3.4 mEq/L (3.5-5.1)
[2021-03-20 07:06] LABS: Folate > 22.3 ng/mL (3.0-16.0); Vitamin B12 1094 pg/mL (250-1100)
[2021-03-20] MEDS: D5% in Water 1,000 ML IVC SCH (07:39)
[2021-03-20] MEDS: carvediloL 25 MG TABLET PO SCH ×2 (08:50→16:08)
[2021-03-20] MEDS: Renal Vitamin 1 CAP CAPSULE PO SCH (08:50)
[2021-03-20] MEDS: Colistin (Colistimethate) 130 MG in 0.9 % Sodium Chloride 50 ML IVPB SCH (17:23)
[2021-03-21] MEDS: Ipratropium/Albuterol Neb 3 ML IH SCH ×7 (04:15→23:49)
[2021-03-21 06:12] LABS: Basophils % 0.1 %; Eosinophils # 0.1 K/mcL (0.0-0.6); Eosinophils % 1.2 %; Hematocrit 23.2 % (37.5-50.1); Hemoglobin 7.4 g/dL (12.9-16.9); Immature Granulocytes % 0.4 % (0-4); Lymphocytes # 0.1 K/mcL (0.6-4.6); Lymphocytes % 1.9 %; Mean Corpuscular HGB Conc 31.9 g/dL (31.6-35.5); Mean Corpuscular Hemoglobin 29.7 pg (28.0-33.3); Mean Corpuscular Volume 93.2 fL (83.0-100.0); Mean Platelet Volume 10.2 fL (9.4-12.4); Monocytes # 0.3 K/mcL (0.0-1.3); Monocytes % 4.6 %; Neutrophils # 6.7 K/mcL (1.6-8.9); Platelet Count 121 K/mcL (140-400); Red Blood Count 2.49 M/mcL (4.19-5.50); Red Cell Distribution Width 17.4 % (11.5-14.5); Segmented Neutrophils % 91.8 %; White Blood Count 7.3 K/mcL (4.3-11.1)
[2021-03-21 06:32] LABS: Anisocytosis 1+ (Not Present); Platelet Estimate Slight Decrease (Normal)
[2021-03-21 06:50] LABS: Calcium 8.8 mg/dL (8.6-10.3); Potassium 3.4 mEq/L (3.5-5.1)
[2021-03-21] MEDS ORDERED: 0.9 % Sodium Chloride 250 ML IVC PRN (07:13)
[2021-03-21] MEDS: Budesonide Neb 0.5 MG/2 ML IH SCH ×2 (07:55→20:55)
[2021-03-21] MEDS: Piperacillin/Tazobactam 3.375 GM in 0.9 % Sodium Chloride Mini Bag 100 ML IVPB SCH ×2 (09:05→21:49)
[2021-03-21] MEDS: carvediloL 25 MG TABLET PO SCH ×2 (09:05→21:17)
[2021-03-21] MEDS: amLODIPine 5 MG TABLET GTUBE SCH ×2 (09:06→21:51)
[2021-03-21] MEDS: hydrOXYzine pamoate 25 MG CAPSULE PO PRN (09:06)
[2021-03-21] MEDS: Renal Vitamin 1 CAP CAPSULE PO SCH (09:06)
[2021-03-21] MEDS: Chlorhexidine Rinse 15 ML MOUTHWASH MM SCH ×2 (09:07→21:48)
[2021-03-21] MEDS ORDERED: Albumin 25% 25gram/100mL 25 GM/100 ML IV.SOLN IVPB ONE (16:56)
[2021-03-21] MEDS: Colistin (Colistimethate) 180 MG in 0.9 % Sodium Chloride 50 ML IVPB SCH (21:48)
[2021-03-21] MEDS: traZODone 50 MG TABLET GTUBE SCH (21:50)
[2021-03-21] MEDS: Mirtazapine 15 MG TABLET GTUBE SCH (21:50)
[2021-03-21] MEDS: Melatonin 3 MG TABLET GTUBE SCH (21:50)
[2021-03-21] MEDS: *HR* Dextrose 50 % in Water (Syg) 50 ML SYRINGE IVP PRN (21:51)
[2021-03-22 04:20] LABS: Hematocrit 22.1 % (37.5-50.1); Hemoglobin 7.2 g/dL (12.9-16.9); Mean Corpuscular HGB Conc 32.6 g/dL (31.6-35.5); Mean Corpuscular Hemoglobin 30.4 pg (28.0-33.3); Mean Corpuscular Volume 93.2 fL (83.0-100.0); Mean Platelet Volume 10.3 fL (9.4-12.4); Platelet Count 138 K/mcL (140-400); Red Blood Count 2.37 M/mcL (4.19-5.50); Red Cell Distribution Width 17.4 % (11.5-14.5); White Blood Count 6.1 K/mcL (4.3-11.1)
[2021-03-22 04:37] LABS: Anisocytosis 1+ (Not Present); Platelet Estimate Normal (Normal)
[2021-03-22 04:40] LABS: Calcium 8.7 mg/dL (8.6-10.3); Potassium 3.6 mEq/L (3.5-5.1)
[2021-03-22 05:43] LABS: Neutrophils # 5.7 K/mcL (1.6-8.9)
[2021-03-22] MEDS: Budesonide Neb 0.5 MG/2 ML IH SCH ×2 (07:27→20:14)
[2021-03-22] MEDS: Ipratropium/Albuterol Neb 3 ML IH SCH ×5 (07:27→23:41)
[2021-03-22] MEDS ORDERED: SODIUM CHLORIDE 0.9% IVPB SCH (12:00)
[2021-03-22] MEDS: Piperacillin/Tazobactam 3.375 GM in 0.9 % Sodium Chloride Mini Bag 100 ML IVPB SCH (12:00)
[2021-03-22] MEDS ORDERED: CEFTAZIDIME IVPB SCH (12:00)
[2021-03-22] MEDS: amLODIPine 5 MG TABLET GTUBE SCH ×2 (12:01→20:53)
[2021-03-22] MEDS: *HR* LORazepam 2 MG/ML VIAL IVP PRN (12:02)
[2021-03-22] MEDS: Chlorhexidine Rinse 15 ML MOUTHWASH MM SCH ×2 (12:02→21:05)
[2021-03-22] MEDS: Renal Vitamin 1 CAP CAPSULE PO SCH (12:02)
[2021-03-22] MEDS: hydrOXYzine pamoate 25 MG CAPSULE PO PRN (12:02)
[2021-03-22] MEDS: carvediloL 25 MG TABLET PO SCH (12:02)
[2021-03-22] MEDS ORDERED: Isovue-370 500 ML BOTTLE IVP ONE (14:12)
[2021-03-22 18:47] LABS: Hematocrit 22.6 % (37.5-50.1); Hemoglobin 7.1 g/dL (12.9-16.9)
[2021-03-22] MEDS: Colistin (Colistimethate) 130 MG in 0.9 % Sodium Chloride 50 ML IVPB SCH (19:14)
[2021-03-22] MEDS: Melatonin 3 MG TABLET GTUBE SCH (20:53)
[2021-03-22] MEDS: Mirtazapine 15 MG TABLET GTUBE SCH (20:53)
[2021-03-22] MEDS: traZODone 50 MG TABLET GTUBE SCH (20:53)
[2021-03-23] MEDS: *HR* LORazepam 2 MG/ML VIAL IVP PRN (02:13)
[2021-03-23 03:05] LABS: Hematocrit 22.5 % (37.5-50.1); Hemoglobin 7.3 g/dL (12.9-16.9)
[2021-03-23 03:21] LABS: Calcium 9.4 mg/dL (8.6-10.3); Potassium 3.6 mEq/L (3.5-5.1)
[2021-03-23] MEDS: Ipratropium/Albuterol Neb 3 ML IH SCH ×6 (03:40→23:38)
[2021-03-23] MEDS: *HR* Dextrose 50 % in Water (Syg) 50 ML SYRINGE IVP PRN ×3 (04:35→08:37)
[2021-03-23] MEDS ORDERED: Haloperidol Lactate 5 MG/ML VIAL IVP ONE (07:29)
[2021-03-23] MEDS ORDERED: 0.9 % Sodium Chloride 250 ML IVC PRN (07:30)
[2021-03-23] MEDS: carvediloL 25 MG TABLET PO SCH ×3 (07:33→18:43)
[2021-03-23] MEDS: Budesonide Neb 0.5 MG/2 ML IH SCH ×2 (08:25→19:35)
[2021-03-23] MEDS: Dexmedetomidine HCl 400 MCG/100 ML MLS IVC SCH (10:45)
[2021-03-23] MEDS ORDERED: SODIUM CHLORIDE 0.9% IVP SCH (15:00)
[2021-03-23] MEDS ORDERED: CEFTAZIDIME IVP SCH (15:00)
[2021-03-23] MEDS: amLODIPine 5 MG TABLET GTUBE SCH (18:06)
[2021-03-23] MEDS: Chlorhexidine Rinse 15 ML MOUTHWASH MM SCH ×2 (18:06→21:53)
[2021-03-23] MEDS: Renal Vitamin 1 CAP CAPSULE PO SCH (18:07)
[2021-03-23] MEDS ORDERED: Apixaban 5 MG TABLET PO SCH (21:00)
[2021-03-23] MEDS: traZODone 50 MG TABLET GTUBE SCH (21:53)
[2021-03-23] MEDS: Apixaban 5 MG TABLET GTUBE SCH (21:54)
[2021-03-23] MEDS: QUEtiapine Fumarate 25 MG TABLET PO SCH (21:54)
[2021-03-23] MEDS: Mirtazapine 15 MG TABLET GTUBE SCH (21:54)
[2021-03-23] MEDS: Melatonin 3 MG TABLET GTUBE SCH (21:54)
[2021-03-23] MEDS: Colistin (Colistimethate) 180 MG in 0.9 % Sodium Chloride 50 ML IVPB SCH (21:54)
[2021-03-24] MEDS: amLODIPine 5 MG TABLET GTUBE SCH ×2 (01:35→08:55)
[2021-03-24] MEDS: Ipratropium/Albuterol Neb 3 ML IH SCH ×5 (03:48→20:47)
[2021-03-24 05:28] LABS: Eosinophils # 0.1 K/mcL (0.0-0.6); Eosinophils % 2.4 %; Hematocrit 20.9 % (37.5-50.1); Mean Corpuscular Volume 94.6 fL (83.0-100.0); Red Blood Count 2.21 M/mcL (4.19-5.50); Red Cell Distribution Width 17.7 % (11.5-14.5); White Blood Count 5.1 K/mcL (4.3-11.1)
[2021-03-24 05:29] LABS: Hemoglobin 6.7 g/dL (12.9-16.9); Immature Granulocytes % 0.2 % (0-4); Immature Platelets 4.3 % (1.1-6.1); Lymphocytes # 0.2 K/mcL (0.6-4.6); Lymphocytes % 3.3 %; Mean Corpuscular HGB Conc 32.1 g/dL (31.6-35.5); Mean Corpuscular Hemoglobin 30.3 pg (28.0-33.3); Mean Platelet Volume 10.3 fL (9.4-12.4); Monocytes # 0.2 K/mcL (0.0-1.3); Monocytes % 3.5 %; Neutrophils # 4.6 K/mcL (1.6-8.9); Platelet Count 124 K/mcL (140-400); Segmented Neutrophils % 90.6 %
[2021-03-24 06:15] LABS: Platelet Estimate Normal (Normal)
[2021-03-24 06:16] LABS: Anisocytosis 1+ (Not Present)
[2021-03-24 06:18] LABS: BUN/Creatinine Ratio 7 (6-26); Blood Urea Nitrogen 20 mg/dL (6-20); Calcium 9.1 mg/dL (8.6-10.3); Carbon Dioxide 31 mEq/L (23-29); Chloride 100 mEq/L (98-107); Glucose 108 mg/dL (70-105); Iron 18 mcg/dL (65-175); Osmolality,Calculated 287 (280-300); Potassium 3.1 mEq/L (3.5-5.1); Sodium 137 mEq/L (136-145); Transferrin < 75 mg/dL (203-362); eGFR For African Americans 27 (> 60); eGFR For Non-African Americans 22 (> 60)
[2021-03-24] MEDS: Budesonide Neb 0.5 MG/2 ML IH SCH ×2 (08:04→20:47)
[2021-03-24] MEDS: carvediloL 25 MG TABLET PO SCH ×2 (08:50→15:35)
[2021-03-24] MEDS: Chlorhexidine Rinse 15 ML MOUTHWASH MM SCH ×2 (08:54→20:33)
[2021-03-24] MEDS: Apixaban 5 MG TABLET GTUBE SCH ×2 (09:29→20:31)
[2021-03-24] MEDS: Potassium Chloride Elixir 20 MEQ/15 ML UDC GTUBE SCH ×2 (09:29→20:33)
[2021-03-24] MEDS: Renal Vitamin 1 CAP CAPSULE PO SCH (09:31)
[2021-03-24] MEDS: Dexmedetomidine HCl 400 MCG/100 ML MLS IVC SCH (11:40)
[2021-03-24] MEDS: Piperacillin/Tazobactam 3.375 GM in 0.9 % Sodium Chloride Mini Bag 100 ML IVPB SCH (11:41)
[2021-03-24] MEDS ORDERED: Iron Sucrose Complex 200 MG in 0.9 % Sodium Chloride 100 ML IVPB ONE (12:37)
[2021-03-24 17:07] VITALS: O2SAT 100
[2021-03-24] MEDS ORDERED: *HR* HYDROcodone/Acet 5/325 mg TABLET PO ONE (18:35)
[2021-03-24 18:51] LABS: Hematocrit 26.3 % (37.5-50.1); Hemoglobin 8.2 g/dL (12.9-16.9)
[2021-03-24] MEDS: traZODone 50 MG TABLET GTUBE SCH (20:30)
[2021-03-24] MEDS: Mirtazapine 15 MG TABLET GTUBE SCH (20:30)
[2021-03-24] MEDS: Melatonin 3 MG TABLET GTUBE SCH (20:30)
[2021-03-24] MEDS: QUEtiapine Fumarate 25 MG TABLET PO SCH (20:32)
[2021-03-25] MEDS: Ipratropium/Albuterol Neb 3 ML IH SCH ×6 (00:03→20:06)
[2021-03-25] MEDS: Budesonide Neb 0.5 MG/2 ML IH SCH ×2 (07:29→20:06)
[2021-03-25] MEDS: amLODIPine 5 MG TABLET GTUBE SCH ×3 (08:45→21:09)
[2021-03-25] MEDS: carvediloL 25 MG TABLET PO SCH ×2 (09:08→17:02)
[2021-03-25] MEDS: Apixaban 5 MG TABLET GTUBE SCH ×2 (09:08→21:09)
[2021-03-25] MEDS: Renal Vitamin 1 CAP CAPSULE PO SCH (09:08)
[2021-03-25] MEDS: Chlorhexidine Rinse 15 ML MOUTHWASH MM SCH ×2 (09:08→21:14)
[2021-03-25 14:41] LABS: Basophils % 0.2 %; Eosinophils # 0.1 K/mcL (0.0-0.6); Eosinophils % 2.2 %; Hematocrit 26.1 % (37.5-50.1); Hemoglobin 8.2 g/dL (12.9-16.9); Immature Granulocytes % 0.6 % (0-4); Lymphocytes # 0.3 K/mcL (0.6-4.6); Lymphocytes % 5.6 %; Mean Corpuscular HGB Conc 31.4 g/dL (31.6-35.5); Mean Corpuscular Hemoglobin 30.4 pg (28.0-33.3); Mean Corpuscular Volume 96.7 fL (83.0-100.0); Mean Platelet Volume 10.3 fL (9.4-12.4); Monocytes # 0.3 K/mcL (0.0-1.3); Monocytes % 5.8 %; Neutrophils # 4.6 K/mcL (1.6-8.9); Platelet Count 127 K/mcL (140-400); Red Cell Distribution Width 17.8 % (11.5-14.5); Segmented Neutrophils % 85.6 %; White Blood Count 5.4 K/mcL (4.3-11.1)
[2021-03-25 15:08] LABS: Calcium 9.9 mg/dL (8.6-10.3)
[2021-03-25] MEDS: *HR* OxyCODONE/APAP 5/325 TABLET GTUBE PRN (17:02)
[2021-03-25] MEDS: Mirtazapine 15 MG TABLET GTUBE SCH (21:09)
[2021-03-25] MEDS: traZODone 50 MG TABLET GTUBE SCH (21:09)
[2021-03-25] MEDS: Melatonin 3 MG TABLET GTUBE SCH (21:09)
[2021-03-25] MEDS: QUEtiapine Fumarate 25 MG TABLET PO SCH (21:09)
[2021-03-26] MEDS: Ipratropium/Albuterol Neb 3 ML IH SCH ×7 (00:06→23:41)
[2021-03-26] MEDS: *HR* OxyCODONE/APAP 5/325 TABLET GTUBE PRN ×2 (04:47→16:34)
[2021-03-26] MEDS: Budesonide Neb 0.5 MG/2 ML IH SCH ×2 (07:35→21:01)
[2021-03-26] MEDS ORDERED: *HR* Heparin 10,000 UNIT/10 ML VIAL IV PRN ×2 (08:04)
[2021-03-26] MEDS ORDERED: 0.9 % Sodium Chloride 250 ML IVC PRN (08:04)
[2021-03-26] MEDS: Dextrose Gel 15 GM/37.5 ML TUBE PO PRN (08:09)
[2021-03-26] MEDS ORDERED: 0.9 % Sodium Chloride 1,000 ML PRIME SCH (08:15)
[2021-03-26] MEDS: carvediloL 25 MG TABLET PO SCH ×2 (09:00→16:35)
[2021-03-26] MEDS ORDERED: Iron Sucrose Complex 400 MG in 0.9 % Sodium Chloride 250 ML IVPB ONE (09:57)
[2021-03-26] MEDS: Renal Vitamin 1 CAP CAPSULE PO SCH (10:33)
[2021-03-26] MEDS: Apixaban 5 MG TABLET GTUBE SCH ×2 (10:34→22:04)
[2021-03-26] MEDS: Chlorhexidine Rinse 15 ML MOUTHWASH MM SCH ×2 (10:47→22:04)
[2021-03-26] MEDS ORDERED: cefTAZidime 1,000 MG in 0.9 % Sodium Chloride Mini Bag 100 ML IVPB SCH (15:00)
[2021-03-26] MEDS: amLODIPine 5 MG TABLET GTUBE SCH ×2 (16:34→22:04)
[2021-03-26 16:58] LABS: Adenovirus Not Detected (Not Detect); Bordetella Pertussis Not Detected (Not Detect); Chlamydophila pneumoniae Not Detected (Not Detect); Coronavirus 229E Not Detected (Not Detect); Coronavirus HKU1 Not Detected (Not Detect); Coronavirus NL63 Not Detected (Not Detect); Coronavirus OC43 Not Detected (Not Detect); Human Metapneumovirus Not Detected (Not Detect); Human Rhinovirus/Enterovirus Not Detected (Not Detect); Influenza A Subtype 2009 H1 Not Detected (Not Detect); Influenza B Not Detected (Not Detect); Mycoplasma pneumoniae Not Detected (Not Detect); Parainfluenza Virus 1 Not Detected (Not Detect); Parainfluenza Virus 2 Not Detected (Not Detect); Parainfluenza Virus 3 Not Detected (Not Detect); Parainfluenza Virus 4 Not Detected (Not Detect); Respiratory Syncytial Virus Not Detected (Not Detect); SARS-CoV-2 Not Detected (Not Detect)
[2021-03-26 21:01] VITALS: PULSE 85
[2021-03-26 21:14] VITALS: BP 104/75; TEMP 97.2
[2021-03-26] MEDS: traZODone 50 MG TABLET GTUBE SCH (22:03)
[2021-03-26] MEDS: Mirtazapine 15 MG TABLET GTUBE SCH (22:04)
[2021-03-26] MEDS: Melatonin 3 MG TABLET GTUBE SCH (22:04)
[2021-03-26] MEDS: QUEtiapine Fumarate 25 MG TABLET PO SCH (22:04)
== END 2021-03-26 23:44 | disposition home or self-care (01) | DRG 870 ==
LOC: 2NNU → SUATTDRO 03-07 03:28
PROVIDERS: ADMIT Student in an Organized Health Care Education/Training Program; ATTEND Internal Medicine

== ENCOUNTER 2021-04-11 09:08 | Inpatient (IN) ==
[2021-04-11 09:50] LABS: Basophils % 0.3 %; Eosinophils # 0.1 K/mcL (0.0-0.6); Eosinophils % 1.4 %; Hematocrit 24.3 % (37.5-50.1); Hemoglobin 7.6 g/dL (12.9-16.9); Immature Granulocytes % 0.6 % (0-4); Lymphocytes # 0.4 K/mcL (0.6-4.6); Lymphocytes % 4.8 %; Mean Corpuscular HGB Conc 31.3 g/dL (31.6-35.5); Mean Platelet Volume 9.2 fL (9.4-12.4); Monocytes # 0.7 K/mcL (0.0-1.3); Monocytes % 8.3 %; Neutrophils # 6.8 K/mcL (1.6-8.9); Platelet Count 250 K/mcL (140-400); Red Blood Count 2.53 M/mcL (4.19-5.50); Red Cell Distribution Width 19.2 % (11.5-14.5); Segmented Neutrophils % 84.6 %
[2021-04-11 10:00] LABS: INR 1.8; Prothrombin Time 20.1 Seconds (9.4-12.1)
[2021-04-11 10:03] LABS: Activated Partial Thrombo Time 45.8 Seconds (26.0-36.0)
[2021-04-11 10:10] LABS: Calcium 8.5 mg/dL (8.6-10.3); Potassium 4.7 mEq/L (3.5-5.1)
[2021-04-11] MEDS ORDERED: *HR* Heparin 5,000 UNIT/ML VIAL ONE (11:17)
[2021-04-11] MEDS ORDERED: Naloxone 0.4 MG/ML INJ IVP PRN (12:09)
[2021-04-11] MEDS ORDERED: Melatonin 3 MG TABLET PO PRN (12:09)
[2021-04-11] MEDS ORDERED: Melatonin 3 MG TABLET GTUBE PRN (13:00)
[2021-04-11 13:16] LABS: Thyroid Stimulating Hormone 32.404 mcIU/mL (0.340-5.600)
[2021-04-11] MEDS ORDERED: Ipratropium 1 PUFF INHALER IH PRN (14:41)
[2021-04-11] MEDS ORDERED: 0.9 % Sodium Chloride 250 ML IVC PRN (14:49)
[2021-04-11] MEDS ORDERED: *HR* Heparin 10,000 UNIT/10 ML VIAL IV PRN (14:49)
[2021-04-11] MEDS ORDERED: 0.9 % Sodium Chloride 1,000 ML PRIME SCH (15:00)
[2021-04-11] MEDS: Budesonide Neb 0.5 MG/2 ML IH SCH (20:33)
[2021-04-11 21:54] LABS: Albumin 2.6 g/dL (3.5-5.7); Calcium 8.3 mg/dL (8.6-10.3); Phosphorous 2.8 mg/dL (2.7-4.5); Potassium 3.7 mEq/L (3.5-5.1)
[2021-04-11] MEDS ORDERED: D5% in Water 1,000 ML IVC PRN (23:47)
[2021-04-11] MEDS ORDERED: Dextrose Gel 15 GM/37.5 ML TUBE PO PRN ×2 (23:47)
[2021-04-12] MEDS: *HR* OxyCODONE/APAP 5/325 TABLET GTUBE PRN ×3 (00:36→15:38)
[2021-04-12] MEDS: Chlorhexidine Rinse 15 ML MOUTHWASH MM SCH ×3 (00:36→20:24)
[2021-04-12] MEDS: QUEtiapine Fumarate 25 MG TABLET PO SCH ×2 (00:36→20:24)
[2021-04-12] MEDS: Apixaban 5 MG TABLET GTUBE SCH ×2 (00:36→07:54)
[2021-04-12] MEDS: Melatonin 3 MG TABLET GTUBE SCH ×2 (00:36→20:24)
[2021-04-12] MEDS: Mirtazapine 15 MG TABLET GTUBE SCH ×2 (00:36→20:24)
[2021-04-12] MEDS: traZODone 50 MG TABLET GTUBE SCH ×2 (00:36→20:24)
[2021-04-12 01:05] LABS: Hematocrit 19.9 % (37.5-50.1); Hemoglobin 6.3 g/dL (12.9-16.9)
[2021-04-12 02:49] LABS: Basophils % 0.3 %; Eosinophils # 0.1 K/mcL (0.0-0.6); Eosinophils % 0.9 %; Hematocrit 20.5 % (37.5-50.1); Hemoglobin 6.2 g/dL (12.9-16.9); Immature Granulocytes % 0.5 % (0-4); Lymphocytes # 0.4 K/mcL (0.6-4.6); Mean Corpuscular HGB Conc 30.2 g/dL (31.6-35.5); Mean Corpuscular Hemoglobin 30.7 pg (28.0-33.3); Mean Corpuscular Volume 101.5 fL (83.0-100.0); Mean Platelet Volume 9.3 fL (9.4-12.4); Monocytes # 0.7 K/mcL (0.0-1.3); Neutrophils # 5.2 K/mcL (1.6-8.9); Platelet Count 205 K/mcL (140-400); Red Blood Count 2.02 M/mcL (4.19-5.50); Red Cell Distribution Width 19.2 % (11.5-14.5); Segmented Neutrophils % 81.3 %; White Blood Count 6.4 K/mcL (4.3-11.1)
[2021-04-12 03:07] LABS: Calcium 8.2 mg/dL (8.6-10.3); Magnesium 1.7 mg/dL (1.6-2.6); Phosphorous 3.3 mg/dL (2.7-4.5)
[2021-04-12] MEDS ORDERED: 0.9 % Sodium Chloride 250 ML ONE (03:45)
[2021-04-12] MEDS: *HR* Dextrose 50 % in Water (Syg) 50 ML SYRINGE IVP PRN (05:54)
[2021-04-12] MEDS: Renal Vitamin 1 CAP CAPSULE PO SCH (07:53)
[2021-04-12] MEDS: carvediloL 25 MG TABLET GTUBE SCH ×3 (07:54→18:41)
[2021-04-12] MEDS ORDERED: THEOPHYLLINE ANHYDROUS 200 MG PO SCH (09:00)
[2021-04-12 09:11] LABS: Hematocrit 24.4 % (37.5-50.1); Hemoglobin 7.3 g/dL (12.9-16.9)
[2021-04-12] MEDS ORDERED: SODIUM CHLORIDE 0.9% IVPB ONE (09:16)
[2021-04-12] MEDS ORDERED: DESMOPRESSIN ACETATE IVPB ONE (09:16)
[2021-04-12] MEDS: Patient Taking Own Medication 1 EACH GTUBE SCH (10:22)
[2021-04-12] MEDS: Budesonide Neb 0.5 MG/2 ML IH SCH ×2 (11:08→21:34)
[2021-04-12] MEDS ORDERED: Gabapentin 400 MG CAPSULE PO PRN (11:41)
[2021-04-12 15:02] LABS: Hematocrit 20.1 % (37.5-50.1); Hemoglobin 6.4 g/dL (12.9-16.9)
[2021-04-12] MEDS: Ferrous Sulfate Oral Soln 300 MG/5 ML UDC GTUBE SCH ×2 (18:41)
[2021-04-12 22:40] LABS: Hematocrit 20.6 % (37.5-50.1); Hemoglobin 6.6 g/dL (12.9-16.9)
[2021-04-13] MEDS: Budesonide Neb 0.5 MG/2 ML IH SCH ×2 (07:19→19:45)
[2021-04-13] MEDS: Patient Taking Own Medication 1 EACH GTUBE SCH (07:35)
[2021-04-13] MEDS: Chlorhexidine Rinse 15 ML MOUTHWASH MM SCH ×2 (07:51→19:56)
[2021-04-13] MEDS: Renal Vitamin 1 CAP CAPSULE PO SCH (07:51)
[2021-04-13] MEDS: carvediloL 25 MG TABLET GTUBE SCH ×2 (07:52→16:46)
[2021-04-13] MEDS ORDERED: *HR* Heparin 10,000 UNIT/10 ML VIAL IV PRN (07:55)
[2021-04-13] MEDS ORDERED: 0.9 % Sodium Chloride 250 ML IVC PRN (07:55)
[2021-04-13 11:47] LABS: Potassium 4.4 mEq/L (3.5-5.1)
[2021-04-13 15:09] LABS: Hematocrit 24.3 % (37.5-50.1); Hemoglobin 8.2 g/dL (12.9-16.9); Mean Corpuscular HGB Conc 33.7 g/dL (31.6-35.5); Mean Corpuscular Hemoglobin 30.1 pg (28.0-33.3); Mean Corpuscular Volume 89.3 fL (83.0-100.0); Mean Platelet Volume 9.1 fL (9.4-12.4); Platelet Count 173 K/mcL (140-400); Red Blood Count 2.72 M/mcL (4.19-5.50); Red Cell Distribution Width 17.2 % (11.5-14.5); White Blood Count 8.2 K/mcL (4.3-11.1)
[2021-04-13] MEDS: Ferrous Sulfate Oral Soln 300 MG/5 ML UDC GTUBE SCH (16:46)
[2021-04-13] MEDS: *HR* OxyCODONE/APAP 5/325 TABLET GTUBE PRN (16:46)
[2021-04-13] MEDS: QUEtiapine Fumarate 25 MG TABLET GTUBE SCH (19:57)
[2021-04-13] MEDS: traZODone 50 MG TABLET GTUBE SCH (19:57)
[2021-04-13] MEDS: Mirtazapine 15 MG TABLET GTUBE SCH (19:57)
[2021-04-13] MEDS: Melatonin 3 MG TABLET GTUBE SCH (19:57)
[2021-04-13] MEDS: Apixaban 5 MG TABLET GTUBE SCH (20:01)
[2021-04-14 01:11] LABS: Hematocrit 21.4 % (37.5-50.1); Hemoglobin 6.9 g/dL (12.9-16.9); Mean Corpuscular HGB Conc 32.2 g/dL (31.6-35.5); Mean Corpuscular Hemoglobin 29.7 pg (28.0-33.3); Mean Corpuscular Volume 92.2 fL (83.0-100.0); Mean Platelet Volume 9.5 fL (9.4-12.4); Platelet Count 158 K/mcL (140-400); Red Blood Count 2.32 M/mcL (4.19-5.50); Red Cell Distribution Width 17.3 % (11.5-14.5); White Blood Count 7.8 K/mcL (4.3-11.1)
[2021-04-14] MEDS ORDERED: 0.9 % Sodium Chloride 250 ML ONE (04:09)
[2021-04-14 04:23] LABS: Calcium 8.4 mg/dL (8.6-10.3); Potassium 4.2 mEq/L (3.5-5.1)
[2021-04-14] MEDS: *HR* OxyCODONE/APAP 5/325 TABLET GTUBE PRN ×2 (04:44→14:46)
[2021-04-14] MEDS: Budesonide Neb 0.5 MG/2 ML IH SCH ×2 (07:38→20:33)
[2021-04-14] MEDS: Chlorhexidine Rinse 15 ML MOUTHWASH MM SCH ×2 (09:47→20:08)
[2021-04-14] MEDS: carvediloL 25 MG TABLET GTUBE SCH ×2 (09:48→17:28)
[2021-04-14] MEDS: Apixaban 5 MG TABLET GTUBE SCH ×2 (09:48→19:54)
[2021-04-14] MEDS: Renal Vitamin 1 CAP CAPSULE PO SCH (09:48)
[2021-04-14] MEDS: Patient Taking Own Medication 1 EACH GTUBE SCH (09:48)
[2021-04-14 10:07] LABS: Hematocrit 26.6 % (37.5-50.1); Hemoglobin 8.8 g/dL (12.9-16.9)
[2021-04-14] MEDS: amLODIPine 5 MG TABLET PO SCH (15:39)
[2021-04-14] MEDS: Ferrous Sulfate Oral Soln 300 MG/5 ML UDC GTUBE SCH (17:28)
[2021-04-14] MEDS: QUEtiapine Fumarate 25 MG TABLET GTUBE SCH (20:07)
[2021-04-14] MEDS: traZODone 50 MG TABLET GTUBE SCH (20:07)
[2021-04-14] MEDS: Melatonin 3 MG TABLET GTUBE SCH (20:07)
[2021-04-14] MEDS: Mirtazapine 15 MG TABLET GTUBE SCH (20:07)
[2021-04-15 04:40] LABS: Basophils % 0.3 %; Eosinophils # 0.2 K/mcL (0.0-0.6); Eosinophils % 2.2 %; Hematocrit 23.9 % (37.5-50.1); Hemoglobin 7.9 g/dL (12.9-16.9); Immature Granulocytes % 0.3 % (0-4); Lymphocytes # 0.4 K/mcL (0.6-4.6); Lymphocytes % 5.5 %; Mean Corpuscular HGB Conc 33.1 g/dL (31.6-35.5); Mean Corpuscular Hemoglobin 30.2 pg (28.0-33.3); Mean Corpuscular Volume 91.2 fL (83.0-100.0); Mean Platelet Volume 8.9 fL (9.4-12.4); Monocytes # 0.7 K/mcL (0.0-1.3); Monocytes % 9.5 %; Platelet Count 147 K/mcL (140-400); Red Blood Count 2.62 M/mcL (4.19-5.50); Red Cell Distribution Width 17.2 % (11.5-14.5); Segmented Neutrophils % 82.2 %; White Blood Count 7.3 K/mcL (4.3-11.1)
[2021-04-15 05:00] LABS: Calcium 8.5 mg/dL (8.6-10.3); Potassium 4.8 mEq/L (3.5-5.1)
[2021-04-15] MEDS: amLODIPine 5 MG TABLET PO SCH (07:31)
[2021-04-15] MEDS: carvediloL 25 MG TABLET GTUBE SCH ×2 (07:31→16:04)
[2021-04-15] MEDS: Renal Vitamin 1 CAP CAPSULE PO SCH (07:31)
[2021-04-15] MEDS: Apixaban 5 MG TABLET GTUBE SCH ×2 (07:32→20:43)
[2021-04-15] MEDS: Chlorhexidine Rinse 15 ML MOUTHWASH MM SCH ×2 (07:32→20:43)
[2021-04-15] MEDS: Budesonide Neb 0.5 MG/2 ML IH SCH ×2 (08:39→20:29)
[2021-04-15 14:20] LABS: Hematocrit 25.2 % (37.5-50.1); Hemoglobin 8.2 g/dL (12.9-16.9)
[2021-04-15] MEDS: *HR* OxyCODONE/APAP 5/325 TABLET GTUBE PRN (16:04)
[2021-04-15] MEDS: Ferrous Sulfate Oral Soln 300 MG/5 ML UDC GTUBE SCH (18:09)
[2021-04-15] MEDS ORDERED: Ondansetron 4 MG/2 ML VIAL IVP PRN (18:19)
[2021-04-15] MEDS: traZODone 50 MG TABLET GTUBE SCH (20:42)
[2021-04-15] MEDS: QUEtiapine Fumarate 25 MG TABLET GTUBE SCH (20:42)
[2021-04-15] MEDS: Melatonin 3 MG TABLET GTUBE SCH (20:43)
[2021-04-15] MEDS: Mirtazapine 15 MG TABLET GTUBE SCH (20:43)
[2021-04-16] MEDS: *HR* OxyCODONE/APAP 5/325 TABLET GTUBE PRN ×2 (05:42→14:33)
[2021-04-16 06:29] LABS: Basophils % 0.3 %; Eosinophils # 0.2 K/mcL (0.0-0.6); Eosinophils % 3.1 %; Hematocrit 23.7 % (37.5-50.1); Hemoglobin 7.7 g/dL (12.9-16.9); Immature Granulocytes % 0.5 % (0-4); Lymphocytes # 0.3 K/mcL (0.6-4.6); Mean Corpuscular HGB Conc 32.5 g/dL (31.6-35.5); Mean Corpuscular Hemoglobin 30.1 pg (28.0-33.3); Mean Corpuscular Volume 92.6 fL (83.0-100.0); Mean Platelet Volume 8.8 fL (9.4-12.4); Monocytes # 0.6 K/mcL (0.0-1.3); Monocytes % 8.8 %; Neutrophils # 5.3 K/mcL (1.6-8.9); Platelet Count 118 K/mcL (140-400); Red Blood Count 2.56 M/mcL (4.19-5.50); Segmented Neutrophils % 82.3 %; White Blood Count 6.4 K/mcL (4.3-11.1)
[2021-04-16 06:49] LABS: Calcium 8.5 mg/dL (8.6-10.3)
[2021-04-16] MEDS ORDERED: 0.9 % Sodium Chloride 250 ML IVC PRN (07:54)
[2021-04-16] MEDS: carvediloL 25 MG TABLET GTUBE SCH ×2 (08:18→21:38)
[2021-04-16] MEDS: Renal Vitamin 1 CAP CAPSULE PO SCH (08:18)
[2021-04-16] MEDS: amLODIPine 5 MG TABLET PO SCH (08:18)
[2021-04-16] MEDS: Chlorhexidine Rinse 15 ML MOUTHWASH MM SCH ×2 (08:18→20:44)
[2021-04-16] MEDS: Apixaban 5 MG TABLET GTUBE SCH ×2 (08:18→20:47)
[2021-04-16] MEDS: Budesonide Neb 0.5 MG/2 ML IH SCH ×2 (10:35→19:37)
[2021-04-16] MEDS ORDERED: Albumin 25% 25gram/100mL 25 GM/100 ML IV.SOLN IVPB ONE (15:18)
[2021-04-16] MEDS ORDERED: DESMOPRESSIN ACETATE IVPB ONE (17:00)
[2021-04-16] MEDS ORDERED: SODIUM CHLORIDE 0.9% IVPB ONE (17:00)
[2021-04-16] MEDS ORDERED: Pantoprazole 40 MG VIAL IVP SCH (18:00)
[2021-04-16 18:34] LABS: Hematocrit 24.8 % (37.5-50.1); Hemoglobin 8.1 g/dL (12.9-16.9)
[2021-04-16] MEDS: Lactulose Oral Soln 20 GM/30 ML UDC PO SCH (20:43)
[2021-04-16] MEDS: QUEtiapine Fumarate 25 MG TABLET GTUBE SCH (20:44)
[2021-04-16] MEDS: Melatonin 3 MG TABLET GTUBE SCH (20:44)
[2021-04-16] MEDS: traZODone 50 MG TABLET GTUBE SCH (20:44)
[2021-04-16] MEDS: Mirtazapine 15 MG TABLET GTUBE SCH (20:44)
[2021-04-16] MEDS: Gabapentin 400 MG CAPSULE GTUBE PRN (20:50)
[2021-04-16] MEDS: Pantoprazole 40 MG VIAL IVP SCH (21:38)
[2021-04-16] MEDS: Ferrous Sulfate Oral Soln 300 MG/5 ML UDC GTUBE SCH (21:38)
[2021-04-17 02:55] LABS: Basophils % 0.2 %; Eosinophils # 0.2 K/mcL (0.0-0.6); Eosinophils % 2.4 %; Hemoglobin 7.1 g/dL (12.9-16.9); Immature Granulocytes % 0.5 % (0-4); Lymphocytes # 0.3 K/mcL (0.6-4.6); Lymphocytes % 5.5 %; Mean Corpuscular HGB Conc 30.9 g/dL (31.6-35.5); Mean Corpuscular Hemoglobin 29.3 pg (28.0-33.3); Mean Platelet Volume 9.2 fL (9.4-12.4); Monocytes # 0.6 K/mcL (0.0-1.3); Monocytes % 9.6 %; Platelet Count 124 K/mcL (140-400); Red Blood Count 2.42 M/mcL (4.19-5.50); Red Cell Distribution Width 17.1 % (11.5-14.5); Segmented Neutrophils % 81.8 %; White Blood Count 6.2 K/mcL (4.3-11.1)
[2021-04-17 03:18] LABS: Calcium 8.3 mg/dL (8.6-10.3); Potassium 4.3 mEq/L (3.5-5.1)
[2021-04-17] MEDS: Pantoprazole 40 MG VIAL IVP SCH ×2 (05:35→17:06)
[2021-04-17] MEDS: Apixaban 5 MG TABLET GTUBE SCH ×2 (07:55→20:05)
[2021-04-17] MEDS: amLODIPine 5 MG TABLET PO SCH (07:55)
[2021-04-17] MEDS: Renal Vitamin 1 CAP CAPSULE PO SCH (07:55)
[2021-04-17] MEDS: Chlorhexidine Rinse 15 ML MOUTHWASH MM SCH ×2 (07:56→20:05)
[2021-04-17] MEDS: carvediloL 25 MG TABLET GTUBE SCH ×2 (07:56→17:06)
[2021-04-17 08:20] LABS: VBG Ionized Calcium 1.18 mmol/L (1.15-1.35)
[2021-04-17 08:48] LABS: Albumin 2.4 g/dL (3.5-5.7); Bilirubin,Direct 0.1 mg/dL (0.0-0.2); Bilirubin,Indirect 0.3 mg/dL (0.0-1.0); Bilirubin,Total 0.4 mg/dL (0.3-1.0); Globulin 2.5 g/dL (2.4-3.5); Magnesium 1.8 mg/dL (1.6-2.6); Total Protein 4.9 g/dL (6.4-8.9)
[2021-04-17] MEDS: Albuterol 2.5 MG/3 ML NEBULIZER IH PRN (11:03)
[2021-04-17] MEDS: Budesonide Neb 0.5 MG/2 ML IH SCH ×2 (11:03→19:49)
[2021-04-17 11:50] LABS: Hematocrit 22.4 % (37.5-50.1); Hemoglobin 7.1 g/dL (12.9-16.9); Mean Corpuscular HGB Conc 31.7 g/dL (31.6-35.5); Mean Corpuscular Hemoglobin 29.3 pg (28.0-33.3); Mean Corpuscular Volume 92.6 fL (83.0-100.0); Mean Platelet Volume 8.8 fL (9.4-12.4); Platelet Count 115 K/mcL (140-400); Red Blood Count 2.42 M/mcL (4.19-5.50); Red Cell Distribution Width 16.9 % (11.5-14.5); White Blood Count 6.6 K/mcL (4.3-11.1)
[2021-04-17] MEDS ORDERED: SODIUM CHLORIDE/NAHCO3/KCL/PEG 4,000 ML SOLN.RECON PO ONE (17:00)
[2021-04-17] MEDS: Ferrous Sulfate Oral Soln 300 MG/5 ML UDC GTUBE SCH (17:06)
[2021-04-17] MEDS: QUEtiapine Fumarate 25 MG TABLET GTUBE SCH (20:04)
[2021-04-17] MEDS: Gabapentin 400 MG CAPSULE GTUBE PRN (20:04)
[2021-04-17] MEDS: Mirtazapine 15 MG TABLET GTUBE SCH (20:04)
[2021-04-17] MEDS: traZODone 50 MG TABLET GTUBE SCH (20:04)
[2021-04-17] MEDS: Melatonin 3 MG TABLET GTUBE SCH (20:05)
[2021-04-17] MEDS: Lactulose Oral Soln 20 GM/30 ML UDC PO SCH (20:05)
[2021-04-17] MEDS: *HR* Dextrose 50 % in Water (Syg) 50 ML SYRINGE IVP PRN (23:23)
[2021-04-18] MEDS: Pantoprazole 40 MG VIAL IVP SCH ×2 (05:00→16:52)
[2021-04-18 05:11] LABS: INR 1.3; Prothrombin Time 14.4 Seconds (9.4-12.1)
[2021-04-18 05:14] LABS: Basophils % 0.3 %; Eosinophils # 0.2 K/mcL (0.0-0.6); Eosinophils % 2.8 %; Hematocrit 21.2 % (37.5-50.1); Hemoglobin 6.9 g/dL (12.9-16.9); Immature Granulocytes % 0.3 % (0-4); Lymphocytes # 0.4 K/mcL (0.6-4.6); Lymphocytes % 5.2 %; Mean Corpuscular HGB Conc 32.5 g/dL (31.6-35.5); Mean Corpuscular Hemoglobin 29.9 pg (28.0-33.3); Mean Corpuscular Volume 91.8 fL (83.0-100.0); Mean Platelet Volume 9.4 fL (9.4-12.4); Monocytes # 0.7 K/mcL (0.0-1.3); Monocytes % 9.9 %; Neutrophils # 5.5 K/mcL (1.6-8.9); Platelet Count 121 K/mcL (140-400); Red Blood Count 2.31 M/mcL (4.19-5.50); Red Cell Distribution Width 16.7 % (11.5-14.5); Segmented Neutrophils % 81.5 %; White Blood Count 6.8 K/mcL (4.3-11.1)
[2021-04-18 05:23] LABS: Calcium 8.6 mg/dL (8.6-10.3); Potassium 4.9 mEq/L (3.5-5.1)
[2021-04-18] MEDS: Albuterol 2.5 MG/3 ML NEBULIZER IH PRN (08:37)
[2021-04-18] MEDS: Budesonide Neb 0.5 MG/2 ML IH SCH ×2 (08:37→20:08)
[2021-04-18 08:39] LABS: Hematocrit 21.2 % (37.5-50.1)
[2021-04-18] MEDS: Renal Vitamin 1 CAP CAPSULE PO SCH (09:26)
[2021-04-18] MEDS: Apixaban 5 MG TABLET GTUBE SCH ×2 (09:26→12:46)
[2021-04-18] MEDS: amLODIPine 5 MG TABLET PO SCH (09:26)
[2021-04-18] MEDS: carvediloL 25 MG TABLET GTUBE SCH ×2 (09:27→16:53)
[2021-04-18] MEDS: Chlorhexidine Rinse 15 ML MOUTHWASH MM SCH ×2 (09:27→22:19)
[2021-04-18] MEDS ORDERED: Cefepime HCl 1,000 MG in Water for inj. (sterile) 10 ML IVP SCH (11:00)
[2021-04-18] MEDS ORDERED: Lidocaine -MPF 2% 5 ML VIAL ONE (12:44)
[2021-04-18] MEDS ORDERED: *HR* Propofol 200 MG/20 ML VIAL IVP ONE ×2 (12:44→12:49)
[2021-04-18] MEDS: *HR* Dextrose 50 % in Water (Syg) 50 ML SYRINGE IVP PRN ×2 (16:52→17:07)
[2021-04-18] MEDS: Ferrous Sulfate Oral Soln 300 MG/5 ML UDC GTUBE SCH (16:53)
[2021-04-18 18:52] LABS: Hematocrit 21.1 % (37.5-50.1); Mean Corpuscular HGB Conc 33.2 g/dL (31.6-35.5); Mean Corpuscular Hemoglobin 30.7 pg (28.0-33.3); Mean Corpuscular Volume 92.5 fL (83.0-100.0); Mean Platelet Volume 9.2 fL (9.4-12.4); Platelet Count 103 K/mcL (140-400); Red Blood Count 2.28 M/mcL (4.19-5.50); White Blood Count 5.3 K/mcL (4.3-11.1)
[2021-04-18] MEDS: Lactulose Oral Soln 20 GM/30 ML UDC PO SCH (22:19)
[2021-04-18] MEDS: Melatonin 3 MG TABLET GTUBE SCH (22:20)
[2021-04-18] MEDS: QUEtiapine Fumarate 25 MG TABLET GTUBE SCH (22:20)
[2021-04-18] MEDS: Mirtazapine 15 MG TABLET GTUBE SCH (22:20)
[2021-04-18] MEDS: traZODone 50 MG TABLET GTUBE SCH (22:20)
[2021-04-19 01:46] LABS: Hematocrit 19.1 % (37.5-50.1); Hemoglobin 6.1 g/dL (12.9-16.9)
[2021-04-19] MEDS ORDERED: 0.9 % Sodium Chloride 250 ML ONE (02:53)
[2021-04-19] MEDS: Pantoprazole 40 MG VIAL IVP SCH ×2 (05:42→18:30)
[2021-04-19 06:58] LABS: Basophils % 0.2 %; Eosinophils # 0.2 K/mcL (0.0-0.6); Eosinophils % 3.3 %; Hematocrit 22.8 % (37.5-50.1); Immature Granulocytes % 0.4 % (0-4); Lymphocytes # 0.4 K/mcL (0.6-4.6); Mean Corpuscular HGB Conc 33.8 g/dL (31.6-35.5); Mean Corpuscular Hemoglobin 30.6 pg (28.0-33.3); Mean Corpuscular Volume 90.5 fL (83.0-100.0); Monocytes # 0.6 K/mcL (0.0-1.3); Monocytes % 9.8 %; Neutrophils # 4.5 K/mcL (1.6-8.9); Platelet Count 115 K/mcL (140-400); Red Blood Count 2.52 M/mcL (4.19-5.50); Red Cell Distribution Width 15.8 % (11.5-14.5); Segmented Neutrophils % 79.3 %; White Blood Count 5.7 K/mcL (4.3-11.1)
[2021-04-19 07:00] LABS: Hemoglobin 7.7 g/dL (12.9-16.9)
[2021-04-19 07:12] LABS: Calcium 7.4 mg/dL (8.6-10.3); Potassium 4.8 mEq/L (3.5-5.1)
[2021-04-19] MEDS: Budesonide Neb 0.5 MG/2 ML IH SCH ×2 (07:27→20:35)
[2021-04-19] MEDS: Albuterol 2.5 MG/3 ML NEBULIZER IH PRN (07:27)
[2021-04-19] MEDS ORDERED: 0.9 % Sodium Chloride 250 ML IVC PRN (07:47)
[2021-04-19] MEDS ORDERED: Lidocaine/EPI 1:100k 1% 50 ML VIAL ONE (08:32)
[2021-04-19] MEDS ORDERED: Heparin 1,000 UNITS/500 mL 500 ML ONE (08:32)
[2021-04-19] MEDS ORDERED: ceFAZolin 2,000 MG in 0.9 % Sodium Chloride 100 ML IVPB ONE (09:02)
[2021-04-19] MEDS ORDERED: *HR* Heparin 5,000 UNIT/ML VIAL ONE (09:20)
[2021-04-19] MEDS: ceFAZolin 1,000 MG in 0.9 % Sodium Chloride Mini Bag 100 ML IVPB SCH ×2 (10:00→10:17)
[2021-04-19] MEDS: carvediloL 25 MG TABLET GTUBE SCH ×2 (13:49→18:31)
[2021-04-19] MEDS: Chlorhexidine Rinse 15 ML MOUTHWASH MM SCH ×2 (13:50→20:09)
[2021-04-19] MEDS: amLODIPine 5 MG TABLET GTUBE SCH (13:51)
[2021-04-19] MEDS: Renal Vitamin 1 CAP CAPSULE PO SCH (13:51)
[2021-04-19] MEDS ORDERED: *HR* Heparin 10,000 UNIT/10 ML VIAL IV PRN (14:57)
[2021-04-19] MEDS: Ferrous Sulfate Oral Soln 300 MG/5 ML UDC GTUBE SCH (18:31)
[2021-04-19] MEDS: Mirtazapine 15 MG TABLET GTUBE SCH (20:09)
[2021-04-19] MEDS: Melatonin 3 MG TABLET GTUBE SCH (20:09)
[2021-04-19] MEDS: QUEtiapine Fumarate 25 MG TABLET GTUBE SCH (20:09)
[2021-04-19] MEDS: traZODone 50 MG TABLET GTUBE SCH (20:09)
[2021-04-19] MEDS: Lactulose Oral Soln 20 GM/30 ML UDC GTUBE SCH (20:10)
[2021-04-20] MEDS: Hydrocortisone 100 MG/60 ML ENEMA RC SCH ×2 (04:37→20:12)
[2021-04-20] MEDS: *HR* Dextrose 50 % in Water (Syg) 50 ML SYRINGE IVP PRN (04:37)
[2021-04-20] MEDS: Pantoprazole 40 MG VIAL IVP SCH (05:13)
[2021-04-20] MEDS ORDERED: 0.9 % Sodium Chloride 250 ML IVC PRN (06:56)
[2021-04-20] MEDS: Budesonide Neb 0.5 MG/2 ML IH SCH ×2 (07:18→19:56)
[2021-04-20] MEDS: Albuterol 2.5 MG/3 ML NEBULIZER IH PRN (07:18)
[2021-04-20] MEDS: amLODIPine 5 MG TABLET GTUBE SCH ×2 (10:58→11:51)
[2021-04-20] MEDS: Chlorhexidine Rinse 15 ML MOUTHWASH MM SCH ×2 (10:58→20:02)
[2021-04-20] MEDS: carvediloL 25 MG TABLET GTUBE SCH ×3 (10:58→18:27)
[2021-04-20] MEDS: Gabapentin 400 MG CAPSULE GTUBE PRN (10:58)
[2021-04-20] MEDS: Renal Vitamin 1 CAP CAPSULE PO SCH ×2 (10:58→11:51)
[2021-04-20] MEDS ORDERED: *HR* Midazolam HCl 5 MG/5 ML VIAL IVP ONE (12:38)
[2021-04-20] MEDS ORDERED: *HR* Midazolam HCl 2 MG/2 ML VIAL IVP ONE (12:44)
[2021-04-20] MEDS ORDERED: Lidocaine Viscous Oral Soln 15 ML SOLUTION ONE (12:57)
[2021-04-20] MEDS ORDERED: *HR* FentaNYL (PF) 100 MCG/2 ML VIAL ONE (15:13)
[2021-04-20] MEDS: Ferrous Sulfate Oral Soln 300 MG/5 ML UDC GTUBE SCH (18:27)
[2021-04-20 18:38] LABS: Basophils % 0.2 %; Eosinophils # 0.2 K/mcL (0.0-0.6); Eosinophils % 2.8 %; Hemoglobin 8.2 g/dL (12.9-16.9); Immature Granulocytes % 0.2 % (0-4); Lymphocytes # 0.4 K/mcL (0.6-4.6); Lymphocytes % 6.1 %; Mean Corpuscular HGB Conc 32.8 g/dL (31.6-35.5); Mean Corpuscular Volume 91.6 fL (83.0-100.0); Mean Platelet Volume 9.1 fL (9.4-12.4); Monocytes # 0.5 K/mcL (0.0-1.3); Monocytes % 8.3 %; Neutrophils # 5.2 K/mcL (1.6-8.9); Platelet Count 113 K/mcL (140-400); Red Blood Count 2.73 M/mcL (4.19-5.50); Red Cell Distribution Width 15.9 % (11.5-14.5); Segmented Neutrophils % 82.4 %; White Blood Count 6.4 K/mcL (4.3-11.1)
[2021-04-20 18:54] LABS: Calcium 8.3 mg/dL (8.6-10.3); Potassium 3.7 mEq/L (3.5-5.1)
[2021-04-20] MEDS: traZODone 50 MG TABLET GTUBE SCH (19:59)
[2021-04-20] MEDS: Melatonin 3 MG TABLET GTUBE SCH (20:00)
[2021-04-20] MEDS: Mirtazapine 15 MG TABLET GTUBE SCH (20:00)
[2021-04-20] MEDS: QUEtiapine Fumarate 25 MG TABLET GTUBE SCH (20:00)
[2021-04-20] MEDS: Lactulose Oral Soln 20 GM/30 ML UDC GTUBE SCH (20:02)
[2021-04-20] MEDS: *HR* OxyCODONE/APAP 5/325 TABLET GTUBE PRN (21:24)
[2021-04-21 06:12] LABS: Basophils % 0.2 %; Calcium 8.1 mg/dL (8.6-10.3); Hemoglobin 7.9 g/dL (12.9-16.9); Immature Granulocytes % 0.4 % (0-4); Potassium 3.8 mEq/L (3.5-5.1)
[2021-04-21 06:14] LABS: Eosinophils # 0.3 K/mcL (0.0-0.6); Eosinophils % 4.6 %; Hematocrit 24.7 % (37.5-50.1); Immature Platelets 1.4 % (1.1-6.1); Lymphocytes # 0.4 K/mcL (0.6-4.6); Lymphocytes % 7.7 %; Mean Corpuscular Hemoglobin 29.2 pg (28.0-33.3); Mean Corpuscular Volume 91.1 fL (83.0-100.0); Monocytes # 0.5 K/mcL (0.0-1.3); Monocytes % 9.1 %; Neutrophils # 4.3 K/mcL (1.6-8.9); Platelet Count 113 K/mcL (140-400); Red Blood Count 2.71 M/mcL (4.19-5.50); Red Cell Distribution Width 15.9 % (11.5-14.5); White Blood Count 5.5 K/mcL (4.3-11.1)
[2021-04-21] MEDS: Budesonide Neb 0.5 MG/2 ML IH SCH ×2 (07:25→20:56)
[2021-04-21] MEDS: Renal Vitamin 1 CAP CAPSULE PO SCH (09:02)
[2021-04-21] MEDS: amLODIPine 5 MG TABLET GTUBE SCH (09:03)
[2021-04-21] MEDS: carvediloL 25 MG TABLET GTUBE SCH ×2 (09:03→17:01)
[2021-04-21] MEDS: Chlorhexidine Rinse 15 ML MOUTHWASH MM SCH ×2 (09:03→22:04)
[2021-04-21] MEDS ORDERED: *HR* LORazepam 2 MG/ML VIAL IVP ONE (12:20)
[2021-04-21] MEDS: Ferrous Sulfate Oral Soln 300 MG/5 ML UDC GTUBE SCH (17:01)
[2021-04-21] MEDS: Mirtazapine 15 MG TABLET GTUBE SCH (22:03)
[2021-04-21] MEDS: QUEtiapine Fumarate 25 MG TABLET GTUBE SCH (22:03)
[2021-04-21] MEDS: traZODone 50 MG TABLET GTUBE SCH (22:03)
[2021-04-21] MEDS: Melatonin 3 MG TABLET GTUBE SCH (22:03)
[2021-04-21] MEDS: Hydrocortisone 100 MG/60 ML ENEMA RC SCH (22:04)
[2021-04-21] MEDS: Lactulose Oral Soln 20 GM/30 ML UDC GTUBE SCH (22:04)
[2021-04-22 05:23] LABS: Basophils % 0.3 %; Immature Granulocytes % 0.3 % (0-4)
[2021-04-22 05:25] LABS: Eosinophils # 0.3 K/mcL (0.0-0.6); Eosinophils % 4.6 %; Hematocrit 23.4 % (37.5-50.1); Hemoglobin 7.3 g/dL (12.9-16.9); Immature Platelets 1.3 % (1.1-6.1); Lymphocytes # 0.5 K/mcL (0.6-4.6); Mean Corpuscular HGB Conc 31.2 g/dL (31.6-35.5); Mean Corpuscular Hemoglobin 29.3 pg (28.0-33.3); Mean Platelet Volume 9.2 fL (9.4-12.4); Monocytes # 0.5 K/mcL (0.0-1.3); Monocytes % 8.1 %; Neutrophils # 5.3 K/mcL (1.6-8.9); Platelet Count 113 K/mcL (140-400); Red Blood Count 2.49 M/mcL (4.19-5.50); Red Cell Distribution Width 15.9 % (11.5-14.5); Segmented Neutrophils % 79.7 %; White Blood Count 6.7 K/mcL (4.3-11.1)
[2021-04-22 05:38] LABS: Calcium 8.3 mg/dL (8.6-10.3); Potassium 4.4 mEq/L (3.5-5.1)
[2021-04-22] MEDS: Albuterol 2.5 MG/3 ML NEBULIZER IH PRN (07:58)
[2021-04-22] MEDS: Budesonide Neb 0.5 MG/2 ML IH SCH ×2 (07:58→20:31)
[2021-04-22] MEDS: Chlorhexidine Rinse 15 ML MOUTHWASH MM SCH ×2 (09:13→20:45)
[2021-04-22] MEDS: amLODIPine 5 MG TABLET GTUBE SCH (09:13)
[2021-04-22] MEDS: carvediloL 25 MG TABLET GTUBE SCH ×2 (09:14→15:31)
[2021-04-22] MEDS: Renal Vitamin 1 CAP CAPSULE PO SCH (09:14)
[2021-04-22] MEDS ORDERED: Isovue-370 500 ML BOTTLE IVP ONE (09:22)
[2021-04-22] MEDS ORDERED: *HR* Heparin 5,000 UNIT/ML VIAL IVP PRN ×2 (14:59)
[2021-04-22] MEDS: *HR* OxyCODONE/APAP 5/325 TABLET GTUBE PRN (15:30)
[2021-04-22] MEDS: Heparin 25,000UNIT/250ML 1/2NS 25,000 UNIT/250 ML IV.SOLN IVC SCH (15:31)
[2021-04-22] MEDS: Ferrous Sulfate Oral Soln 300 MG/5 ML UDC GTUBE SCH (15:32)
[2021-04-22] MEDS ORDERED: *HR* LORazepam 1 MG TABLET PO ONE (16:31)
[2021-04-22] MEDS: QUEtiapine Fumarate 25 MG TABLET GTUBE SCH (20:43)
[2021-04-22] MEDS: Melatonin 3 MG TABLET GTUBE SCH (20:44)
[2021-04-22] MEDS: Lactulose Oral Soln 20 GM/30 ML UDC GTUBE SCH (20:45)
[2021-04-22] MEDS: Mirtazapine 15 MG TABLET GTUBE SCH (20:45)
[2021-04-22] MEDS: traZODone 50 MG TABLET GTUBE SCH (20:45)
[2021-04-22] MEDS: Hydrocortisone 100 MG/60 ML ENEMA RC SCH (20:50)
[2021-04-23 05:03] LABS: Basophils % 0.2 %; Eosinophils # 0.4 K/mcL (0.0-0.6); Eosinophils % 6.3 %; Hematocrit 24.9 % (37.5-50.1); Hemoglobin 7.7 g/dL (12.9-16.9); Immature Granulocytes % 0.3 % (0-4); Lymphocytes # 0.5 K/mcL (0.6-4.6); Lymphocytes % 8.2 %; Mean Corpuscular HGB Conc 30.9 g/dL (31.6-35.5); Mean Corpuscular Hemoglobin 29.2 pg (28.0-33.3); Mean Corpuscular Volume 94.3 fL (83.0-100.0); Mean Platelet Volume 9.8 fL (9.4-12.4); Monocytes # 0.5 K/mcL (0.0-1.3); Monocytes % 7.4 %; Platelet Count 109 K/mcL (140-400); Red Blood Count 2.64 M/mcL (4.19-5.50); Red Cell Distribution Width 15.9 % (11.5-14.5); Segmented Neutrophils % 77.6 %; White Blood Count 6.5 K/mcL (4.3-11.1)
[2021-04-23 05:20] LABS: Calcium 8.1 mg/dL (8.6-10.3); Potassium 4.8 mEq/L (3.5-5.1)
[2021-04-23] MEDS: Albuterol 2.5 MG/3 ML NEBULIZER IH PRN (07:37)
[2021-04-23] MEDS: Budesonide Neb 0.5 MG/2 ML IH SCH ×2 (07:37→20:27)
[2021-04-23] MEDS ORDERED: 0.9 % Sodium Chloride 250 ML IVC PRN (08:03)
[2021-04-23] MEDS ORDERED: *HR* Heparin 10,000 UNIT/10 ML VIAL IV PRN (08:03)
[2021-04-23] MEDS: Renal Vitamin 1 CAP CAPSULE PO SCH (08:20)
[2021-04-23] MEDS: Chlorhexidine Rinse 15 ML MOUTHWASH MM SCH ×2 (08:21→20:26)
[2021-04-23] MEDS ORDERED: Cefepime HCl 1,000 MG in 0.9 % Sodium Chloride Mini Bag 100 ML IVPB SCH (14:00)
[2021-04-23] MEDS: carvediloL 25 MG TABLET GTUBE SCH ×2 (16:22→16:49)
[2021-04-23] MEDS: Heparin 25,000UNIT/250ML 1/2NS 25,000 UNIT/250 ML IV.SOLN IVC SCH (16:48)
[2021-04-23] MEDS: amLODIPine 5 MG TABLET GTUBE SCH (16:48)
[2021-04-23] MEDS: Cefepime HCl 1,000 MG in Water for inj. (sterile) 10 ML IVP SCH (16:49)
[2021-04-23] MEDS: Ferrous Sulfate Oral Soln 300 MG/5 ML UDC GTUBE SCH (16:49)
[2021-04-23] MEDS: *HR* OxyCODONE/APAP 5/325 TABLET GTUBE PRN (16:52)
[2021-04-23] MEDS: Hydrocortisone 100 MG/60 ML ENEMA RC SCH (20:22)
[2021-04-23] MEDS: Mirtazapine 15 MG TABLET GTUBE SCH (20:26)
[2021-04-23] MEDS: traZODone 50 MG TABLET GTUBE SCH (20:26)
[2021-04-23] MEDS: Gabapentin 400 MG CAPSULE GTUBE PRN (20:26)
[2021-04-23] MEDS: Melatonin 3 MG TABLET GTUBE SCH (20:26)
[2021-04-23] MEDS: QUEtiapine Fumarate 25 MG TABLET GTUBE SCH (20:26)
[2021-04-23] MEDS: Lactulose Oral Soln 20 GM/30 ML UDC GTUBE SCH (20:26)
[2021-04-24] MEDS: Cefepime HCl 1,000 MG in Water for inj. (sterile) 10 ML IVP SCH (04:03)
[2021-04-24] MEDS: *HR* Dextrose 50 % in Water (Syg) 50 ML SYRINGE IVP PRN ×2 (04:03→07:40)
[2021-04-24 04:37] LABS: Immature Granulocytes % 0.2 % (0-4); Mean Corpuscular Volume 94.1 fL (83.0-100.0); Red Cell Distribution Width 15.9 % (11.5-14.5)
[2021-04-24 04:39] LABS: Eosinophils # 0.3 K/mcL (0.0-0.6); Eosinophils % 6.6 %; Hematocrit 19.2 % (37.5-50.1); Immature Platelets 1.9 % (1.1-6.1); Lymphocytes # 0.4 K/mcL (0.6-4.6); Mean Corpuscular HGB Conc 31.3 g/dL (31.6-35.5); Mean Corpuscular Hemoglobin 29.4 pg (28.0-33.3); Monocytes # 0.3 K/mcL (0.0-1.3); Monocytes % 5.9 %; Neutrophils # 3.5 K/mcL (1.6-8.9); Platelet Count 101 K/mcL (140-400); Red Blood Count 2.04 M/mcL (4.19-5.50); Segmented Neutrophils % 79.3 %; White Blood Count 4.4 K/mcL (4.3-11.1)
[2021-04-24 04:56] LABS: Calcium 7.1 mg/dL (8.6-10.3); Potassium 3.8 mEq/L (3.5-5.1)
[2021-04-24] MEDS ORDERED: 0.9 % Sodium Chloride 250 ML ONE (05:36)
[2021-04-24] MEDS: Heparin 25,000UNIT/250ML 1/2NS 25,000 UNIT/250 ML IV.SOLN IVC SCH (05:55)
[2021-04-24] MEDS: Renal Vitamin 1 CAP CAPSULE PO SCH (07:40)
[2021-04-24] MEDS: amLODIPine 5 MG TABLET GTUBE SCH (07:40)
[2021-04-24] MEDS: Chlorhexidine Rinse 15 ML MOUTHWASH MM SCH ×2 (07:40→19:43)
[2021-04-24] MEDS: carvediloL 25 MG TABLET GTUBE SCH ×2 (07:40→18:36)
[2021-04-24] MEDS: Meropenem 1,000 MG in Water for inj. (sterile) 20 ML IVP SCH (09:43)
[2021-04-24] MEDS: Budesonide Neb 0.5 MG/2 ML IH SCH ×2 (10:48→20:29)
[2021-04-24 17:24] LABS: Influenza A PCR Negative (Negative); Influenza B PCR Negative (Negative); Resp. Syncytial Virus PCR Negative (Negative)
[2021-04-24 17:28] LABS: SARS-CoV-2 by PCR (In House) Negative (Negative)
[2021-04-24 17:35] LABS: Basophils % 0.3 %
[2021-04-24 17:37] LABS: Eosinophils # 0.5 K/mcL (0.0-0.6); Eosinophils % 4.9 %; Hematocrit 30.3 % (37.5-50.1); Hemoglobin 9.9 g/dL (12.9-16.9); Immature Granulocytes % 0.6 % (0-4); Immature Platelets 2.5 % (1.1-6.1); Lymphocytes # 0.4 K/mcL (0.6-4.6); Lymphocytes % 4.7 %; Mean Corpuscular HGB Conc 32.7 g/dL (31.6-35.5); Mean Corpuscular Hemoglobin 29.9 pg (28.0-33.3); Mean Corpuscular Volume 91.5 fL (83.0-100.0); Mean Platelet Volume 10.3 fL (9.4-12.4); Monocytes # 0.7 K/mcL (0.0-1.3); Monocytes % 7.3 %; Neutrophils # 7.7 K/mcL (1.6-8.9); Platelet Count 141 K/mcL (140-400); Red Blood Count 3.31 M/mcL (4.19-5.50); Red Cell Distribution Width 15.9 % (11.5-14.5); Segmented Neutrophils % 82.2 %; White Blood Count 9.4 K/mcL (4.3-11.1)
[2021-04-24 18:17] LABS: Platelet Estimate Normal (Normal)
[2021-04-24] MEDS: Ferrous Sulfate Oral Soln 300 MG/5 ML UDC GTUBE SCH (18:36)
[2021-04-24] MEDS: Melatonin 3 MG TABLET GTUBE SCH (19:43)
[2021-04-24] MEDS: Mirtazapine 15 MG TABLET GTUBE SCH (19:43)
[2021-04-24] MEDS: Gabapentin 400 MG CAPSULE GTUBE PRN (19:43)
[2021-04-24] MEDS: QUEtiapine Fumarate 25 MG TABLET GTUBE SCH (19:43)
[2021-04-24] MEDS: traZODone 50 MG TABLET GTUBE SCH (19:43)
[2021-04-24] MEDS: Hydrocortisone 100 MG/60 ML ENEMA RC SCH (19:43)
[2021-04-24] MEDS: Lactulose Oral Soln 20 GM/30 ML UDC GTUBE SCH (19:43)
[2021-04-25 03:27] LABS: Hematocrit 25.4 % (37.5-50.1); Mean Corpuscular HGB Conc 32.7 g/dL (31.6-35.5); Mean Corpuscular Hemoglobin 30.7 pg (28.0-33.3); Mean Corpuscular Volume 94.1 fL (83.0-100.0); Mean Platelet Volume 9.9 fL (9.4-12.4); Platelet Count 115 K/mcL (140-400); Red Cell Distribution Width 15.9 % (11.5-14.5); White Blood Count 7.3 K/mcL (4.3-11.1)
[2021-04-25 03:33] LABS: Hemoglobin 8.3 g/dL (12.9-16.9)
[2021-04-25 03:40] LABS: Calcium 6.1 mg/dL (8.6-10.3); Magnesium 1.3 mg/dL (1.6-2.6); Potassium 3.6 mEq/L (3.5-5.1)
[2021-04-25] MEDS: *HR* Dextrose 50 % in Water (Syg) 50 ML SYRINGE IVP PRN ×2 (03:57→07:36)
[2021-04-25] MEDS: amLODIPine 5 MG TABLET GTUBE SCH (07:34)
[2021-04-25] MEDS: Chlorhexidine Rinse 15 ML MOUTHWASH MM SCH ×2 (07:34→22:40)
[2021-04-25] MEDS: carvediloL 25 MG TABLET GTUBE SCH ×2 (07:34→16:48)
[2021-04-25] MEDS: Renal Vitamin 1 CAP CAPSULE PO SCH (07:34)
[2021-04-25] MEDS: Meropenem 1,000 MG in Water for inj. (sterile) 20 ML IVP SCH (07:35)
[2021-04-25] MEDS: Budesonide Neb 0.5 MG/2 ML IH SCH ×2 (07:55→20:31)
[2021-04-25] MEDS: Albuterol 2.5 MG/3 ML NEBULIZER IH PRN (07:56)
[2021-04-25] MEDS ORDERED: 0.9 % Sodium Chloride 250 ML IVC PRN (08:40)
[2021-04-25] MEDS ORDERED: *HR* Heparin 10,000 UNIT/10 ML VIAL IV PRN (08:40)
[2021-04-25] MEDS: Gabapentin 400 MG CAPSULE GTUBE PRN (14:58)
[2021-04-25] MEDS ORDERED: *HR* LORazepam 1 MG TABLET PO ONE (16:31)
[2021-04-25] MEDS: Ferrous Sulfate Oral Soln 300 MG/5 ML UDC GTUBE SCH (16:48)
[2021-04-25] MEDS: Hydrocortisone 100 MG/60 ML ENEMA RC SCH (22:40)
[2021-04-25] MEDS: Mirtazapine 15 MG TABLET GTUBE SCH (22:40)
[2021-04-25] MEDS: Lactulose Oral Soln 20 GM/30 ML UDC GTUBE SCH (22:40)
[2021-04-25] MEDS: Melatonin 3 MG TABLET GTUBE SCH (22:40)
[2021-04-25] MEDS: QUEtiapine Fumarate 25 MG TABLET GTUBE SCH (22:41)
[2021-04-25] MEDS: traZODone 50 MG TABLET GTUBE SCH (22:41)
[2021-04-26] MEDS: Melatonin 3 MG TABLET PO SCH ×2 (00:56→20:09)
[2021-04-26] MEDS: QUEtiapine Fumarate 25 MG TABLET PO SCH ×2 (00:56→20:10)
[2021-04-26] MEDS: traZODone 50 MG TABLET PO SCH ×2 (00:56→20:11)
[2021-04-26] MEDS: Mirtazapine 15 MG TABLET PO SCH ×2 (00:57→20:09)
[2021-04-26] MEDS: Lactulose Oral Soln 20 GM/30 ML UDC PO SCH ×2 (00:57→20:11)
[2021-04-26 05:57] LABS: Hematocrit 25.6 % (37.5-50.1); Immature Platelets 1.8 % (1.1-6.1); Mean Corpuscular HGB Conc 31.3 g/dL (31.6-35.5); Mean Corpuscular Hemoglobin 29.9 pg (28.0-33.3); Mean Corpuscular Volume 95.5 fL (83.0-100.0); Mean Platelet Volume 9.6 fL (9.4-12.4); Red Blood Count 2.68 M/mcL (4.19-5.50)
[2021-04-26] MEDS: Meropenem 1,000 MG in Water for inj. (sterile) 20 ML IVP SCH (07:53)
[2021-04-26] MEDS: amLODIPine 5 MG TABLET GTUBE SCH (08:03)
[2021-04-26] MEDS: Renal Vitamin 1 CAP CAPSULE PO SCH (08:04)
[2021-04-26] MEDS: carvediloL 25 MG TABLET GTUBE SCH ×2 (08:04→17:09)
[2021-04-26 08:08] LABS: Calcium 5.7 mg/dL (8.6-10.3); Magnesium 1.2 mg/dL (1.6-2.6); Potassium 3.5 mEq/L (3.5-5.1)
[2021-04-26] MEDS: Chlorhexidine Rinse 15 ML MOUTHWASH MM SCH ×2 (08:26→20:15)
[2021-04-26] MEDS: Calcium Gluconate 1gm/50mL 1 GM/50 ML BAG IVPB SCH ×2 (09:03→10:01)
[2021-04-26] MEDS: Albuterol 2.5 MG/3 ML NEBULIZER IH PRN (11:15)
[2021-04-26] MEDS: Budesonide Neb 0.5 MG/2 ML IH SCH ×2 (11:15→20:17)
[2021-04-26] MEDS: Ferrous Sulfate Oral Soln 300 MG/5 ML UDC GTUBE SCH (17:09)
[2021-04-27 05:58] LABS: Hematocrit 27.3 % (37.5-50.1); Hemoglobin 8.6 g/dL (12.9-16.9); Mean Corpuscular HGB Conc 31.5 g/dL (31.6-35.5); Mean Corpuscular Hemoglobin 29.7 pg (28.0-33.3); Mean Corpuscular Volume 94.1 fL (83.0-100.0); Mean Platelet Volume 9.8 fL (9.4-12.4); Platelet Count 142 K/mcL (140-400); Red Cell Distribution Width 15.9 % (11.5-14.5); White Blood Count 6.6 K/mcL (4.3-11.1)
[2021-04-27 06:16] LABS: Calcium 8.5 mg/dL (8.6-10.3); Potassium 5.2 mEq/L (3.5-5.1)
[2021-04-27] MEDS: Budesonide Neb 0.5 MG/2 ML IH SCH ×2 (07:33→19:27)
[2021-04-27] MEDS ORDERED: 0.9 % Sodium Chloride 250 ML IVC PRN (07:58)
[2021-04-27] MEDS ORDERED: Albumin 25% 25gram/100mL 25 GM/100 ML IV.SOLN IVPB PRN (07:58)
[2021-04-27] MEDS ORDERED: *HR* Heparin 10,000 UNIT/10 ML VIAL IV PRN (07:58)
[2021-04-27] MEDS: Chlorhexidine Rinse 15 ML MOUTHWASH MM SCH ×2 (09:09→21:30)
[2021-04-27] MEDS: carvediloL 25 MG TABLET GTUBE SCH ×2 (09:10→15:44)
[2021-04-27] MEDS: amLODIPine 5 MG TABLET GTUBE SCH (09:10)
[2021-04-27] MEDS: Renal Vitamin 1 CAP CAPSULE PO SCH (09:10)
[2021-04-27] MEDS: Meropenem 1,000 MG in Water for inj. (sterile) 20 ML IVP SCH (09:11)
[2021-04-27] MEDS: Gabapentin 400 MG CAPSULE GTUBE PRN (15:44)
[2021-04-27] MEDS: Ferrous Sulfate Oral Soln 300 MG/5 ML UDC GTUBE SCH (15:45)
[2021-04-27] MEDS: Melatonin 3 MG TABLET PO SCH (21:22)
[2021-04-27] MEDS: traZODone 50 MG TABLET PO SCH (21:22)
[2021-04-27] MEDS: QUEtiapine Fumarate 25 MG TABLET PO SCH (21:24)
[2021-04-27] MEDS: Hydrocortisone 100 MG/60 ML ENEMA RC SCH ×2 (21:30)
[2021-04-27] MEDS: Lactulose Oral Soln 20 GM/30 ML UDC PO SCH (21:30)
[2021-04-27] MEDS: Mirtazapine 15 MG TABLET PO SCH (21:30)
[2021-04-28 04:56] LABS: Hematocrit 26.5 % (37.5-50.1); Hemoglobin 8.1 g/dL (12.9-16.9); Mean Corpuscular HGB Conc 30.6 g/dL (31.6-35.5); Mean Corpuscular Hemoglobin 29.7 pg (28.0-33.3); Mean Corpuscular Volume 97.1 fL (83.0-100.0); Mean Platelet Volume 9.3 fL (9.4-12.4); Platelet Count 135 K/mcL (140-400); Red Blood Count 2.73 M/mcL (4.19-5.50); Red Cell Distribution Width 16.1 % (11.5-14.5); White Blood Count 4.9 K/mcL (4.3-11.1)
[2021-04-28 05:32] LABS: Calcium 6.7 mg/dL (8.6-10.3); Magnesium 1.5 mg/dL (1.6-2.6); Potassium 3.5 mEq/L (3.5-5.1)
[2021-04-28] MEDS: Albuterol 2.5 MG/3 ML NEBULIZER IH PRN ×2 (07:36→19:44)
[2021-04-28] MEDS: Budesonide Neb 0.5 MG/2 ML IH SCH ×2 (07:36→19:44)
[2021-04-28] MEDS: Renal Vitamin 1 CAP CAPSULE PO SCH (09:06)
[2021-04-28] MEDS: amLODIPine 5 MG TABLET GTUBE SCH (09:06)
[2021-04-28] MEDS: Chlorhexidine Rinse 15 ML MOUTHWASH MM SCH ×2 (09:06→20:59)
[2021-04-28] MEDS: carvediloL 25 MG TABLET GTUBE SCH ×2 (09:06→16:54)
[2021-04-28] MEDS: Meropenem 1,000 MG in Water for inj. (sterile) 20 ML IVP SCH (09:07)
[2021-04-28] MEDS ORDERED: Darbepoetin 100 MCG/0.5 ML SYRINGE SQ SCH (14:45)
[2021-04-28] MEDS: Ferrous Sulfate Oral Soln 300 MG/5 ML UDC GTUBE SCH (16:53)
[2021-04-28] MEDS: Magnesium Oxide 400 MG TABLET PO SCH (16:55)
[2021-04-28] MEDS: Hydrocortisone 100 MG/60 ML ENEMA RC SCH (20:54)
[2021-04-28] MEDS: Lactulose Oral Soln 20 GM/30 ML UDC PO SCH (20:54)
[2021-04-28] MEDS: Mirtazapine 15 MG TABLET PO SCH (20:58)
[2021-04-28] MEDS: Melatonin 3 MG TABLET PO SCH (20:58)
[2021-04-28] MEDS: traZODone 50 MG TABLET PO SCH (20:58)
[2021-04-28] MEDS: QUEtiapine Fumarate 25 MG TABLET PO SCH (20:59)
[2021-04-29 05:47] LABS: Hematocrit 25.2 % (37.5-50.1); Hemoglobin 7.9 g/dL (12.9-16.9); Mean Corpuscular HGB Conc 31.3 g/dL (31.6-35.5); Mean Corpuscular Hemoglobin 29.6 pg (28.0-33.3); Mean Corpuscular Volume 94.4 fL (83.0-100.0); Platelet Count 139 K/mcL (140-400); Red Blood Count 2.67 M/mcL (4.19-5.50); Red Cell Distribution Width 16.1 % (11.5-14.5); White Blood Count 4.7 K/mcL (4.3-11.1)
[2021-04-29 06:26] LABS: Calcium 8.7 mg/dL (8.6-10.3); Magnesium 2.2 mg/dL (1.6-2.6); Potassium 5.1 mEq/L (3.5-5.1)
[2021-04-29] MEDS: Budesonide Neb 0.5 MG/2 ML IH SCH ×2 (07:34→19:41)
[2021-04-29] MEDS: Renal Vitamin 1 CAP CAPSULE PO SCH (08:51)
[2021-04-29] MEDS: Meropenem 1,000 MG in Water for inj. (sterile) 20 ML IVP SCH (08:51)
[2021-04-29] MEDS: Chlorhexidine Rinse 15 ML MOUTHWASH MM SCH ×2 (08:52→19:53)
[2021-04-29] MEDS: carvediloL 25 MG TABLET GTUBE SCH ×2 (08:52→16:31)
[2021-04-29] MEDS: Magnesium Oxide 400 MG TABLET PO SCH (08:52)
[2021-04-29] MEDS: amLODIPine 5 MG TABLET GTUBE SCH (08:52)
[2021-04-29] MEDS ORDERED: Ergocalciferol (VIT D2) 50,000 UNIT (1.25MG) CAP PO SCH (13:30)
[2021-04-29 13:55] LABS: Hematocrit 29.9 % (37.5-50.1); Hemoglobin 9.4 g/dL (12.9-16.9)
[2021-04-29] MEDS: Ferrous Sulfate Oral Soln 300 MG/5 ML UDC GTUBE SCH (16:31)
[2021-04-29] MEDS: QUEtiapine Fumarate 25 MG TABLET PO SCH (19:53)
[2021-04-29] MEDS: Hydrocortisone 100 MG/60 ML ENEMA RC SCH (19:53)
[2021-04-29] MEDS: Melatonin 3 MG TABLET PO SCH (19:53)
[2021-04-29] MEDS: Lactulose Oral Soln 20 GM/30 ML UDC PO SCH (19:53)
[2021-04-29] MEDS: traZODone 50 MG TABLET PO SCH (19:53)
[2021-04-29] MEDS: Mirtazapine 15 MG TABLET PO SCH (19:53)
[2021-04-30 05:07] LABS: Basophils % 0.2 %; Eosinophils # 0.4 K/mcL (0.0-0.6); Eosinophils % 10.3 %; Hematocrit 25.1 % (37.5-50.1); Hemoglobin 7.9 g/dL (12.9-16.9); Immature Granulocytes % 0.2 % (0-4); Lymphocytes # 0.5 K/mcL (0.6-4.6); Lymphocytes % 11.4 %; Mean Corpuscular HGB Conc 31.5 g/dL (31.6-35.5); Mean Corpuscular Hemoglobin 29.6 pg (28.0-33.3); Mean Platelet Volume 9.1 fL (9.4-12.4); Monocytes # 0.5 K/mcL (0.0-1.3); Monocytes % 10.7 %; Neutrophils # 2.9 K/mcL (1.6-8.9); Platelet Count 150 K/mcL (140-400); Red Blood Count 2.67 M/mcL (4.19-5.50); Red Cell Distribution Width 16.2 % (11.5-14.5); Segmented Neutrophils % 67.2 %; White Blood Count 4.3 K/mcL (4.3-11.1)
[2021-04-30 05:29] LABS: Calcium 8.7 mg/dL (8.6-10.3); Magnesium 2.2 mg/dL (1.6-2.6); Potassium 5.6 mEq/L (3.5-5.1)
[2021-04-30] MEDS: carvediloL 25 MG TABLET GTUBE SCH ×2 (07:23→17:15)
[2021-04-30] MEDS: amLODIPine 5 MG TABLET GTUBE SCH (07:23)
[2021-04-30] MEDS: Budesonide Neb 0.5 MG/2 ML IH SCH ×2 (07:47→19:24)
[2021-04-30] MEDS: Albuterol 2.5 MG/3 ML NEBULIZER IH PRN (07:47)
[2021-04-30] MEDS: Renal Vitamin 1 CAP CAPSULE PO SCH (08:10)
[2021-04-30] MEDS: Chlorhexidine Rinse 15 ML MOUTHWASH MM SCH ×2 (08:11→20:08)
[2021-04-30] MEDS: Magnesium Oxide 400 MG TABLET PO SCH (08:11)
[2021-04-30] MEDS ORDERED: *HR* Heparin 10,000 UNIT/10 ML VIAL IV PRN ×2 (08:50)
[2021-04-30] MEDS ORDERED: 0.9 % Sodium Chloride 250 ML IVC PRN (08:50)
[2021-04-30] MEDS ORDERED: *HR* FentaNYL (PF) 100 MCG/2 ML VIAL IVP ONE (09:19)
[2021-04-30 12:14] LABS: Heparin anti-factor XA UFH < 0.04 IU/mL (0.30-0.70); INR 1.2; Prothrombin Time 13.5 Seconds (9.4-12.1)
[2021-04-30 12:16] LABS: Activated Partial Thrombo Time 39.2 Seconds (26.0-36.0)
[2021-04-30] MEDS: Meropenem 1,000 MG in Water for inj. (sterile) 20 ML IVP SCH (15:36)
[2021-04-30] MEDS: Heparin 25,000UNIT/250ML 1/2NS 25,000 UNIT/250 ML IV.SOLN IVC SCH (15:36)
[2021-04-30] MEDS: Gabapentin 400 MG CAPSULE GTUBE PRN (16:01)
[2021-04-30] MEDS: Ferrous Sulfate Oral Soln 300 MG/5 ML UDC GTUBE SCH (17:15)
[2021-04-30 17:50] LABS: Hemoglobin 8.8 g/dL (12.9-16.9); Mean Corpuscular HGB Conc 31.4 g/dL (31.6-35.5); Mean Corpuscular Hemoglobin 30.6 pg (28.0-33.3); Mean Corpuscular Volume 97.2 fL (83.0-100.0); Mean Platelet Volume 9.6 fL (9.4-12.4); Platelet Count 142 K/mcL (140-400); Red Blood Count 2.88 M/mcL (4.19-5.50); Red Cell Distribution Width 16.2 % (11.5-14.5); White Blood Count 4.8 K/mcL (4.3-11.1)
[2021-04-30 18:11] LABS: Calcium 8.5 mg/dL (8.6-10.3); Potassium 4.1 mEq/L (3.5-5.1)
[2021-04-30] MEDS: Melatonin 3 MG TABLET PO SCH (20:07)
[2021-04-30] MEDS: Mirtazapine 15 MG TABLET PO SCH (20:08)
[2021-04-30] MEDS: Lactulose Oral Soln 20 GM/30 ML UDC PO SCH (20:08)
[2021-04-30] MEDS: traZODone 50 MG TABLET PO SCH (20:08)
[2021-04-30] MEDS: QUEtiapine Fumarate 25 MG TABLET PO SCH (20:08)
[2021-04-30] MEDS: Hydrocortisone 100 MG/60 ML ENEMA RC SCH (21:08)
[2021-05-01 04:02] LABS: Hematocrit 24.8 % (37.5-50.1); Mean Corpuscular HGB Conc 32.3 g/dL (31.6-35.5); Mean Corpuscular Hemoglobin 30.1 pg (28.0-33.3); Mean Corpuscular Volume 93.2 fL (83.0-100.0); Mean Platelet Volume 9.6 fL (9.4-12.4); Platelet Count 170 K/mcL (140-400); Red Blood Count 2.66 M/mcL (4.19-5.50); Red Cell Distribution Width 16.4 % (11.5-14.5); White Blood Count 4.7 K/mcL (4.3-11.1)
[2021-05-01 04:19] LABS: Calcium 8.2 mg/dL (8.6-10.3); Potassium 4.2 mEq/L (3.5-5.1)
[2021-05-01] MEDS: Budesonide Neb 0.5 MG/2 ML IH SCH ×2 (07:36→20:00)
[2021-05-01] MEDS: Albuterol 2.5 MG/3 ML NEBULIZER IH PRN (07:36)
[2021-05-01] MEDS: Renal Vitamin 1 CAP CAPSULE PO SCH (08:26)
[2021-05-01] MEDS: Magnesium Oxide 400 MG TABLET PO SCH (08:26)
[2021-05-01] MEDS: amLODIPine 5 MG TABLET GTUBE SCH (08:26)
[2021-05-01] MEDS: carvediloL 25 MG TABLET GTUBE SCH ×2 (08:26→17:14)
[2021-05-01] MEDS: Chlorhexidine Rinse 15 ML MOUTHWASH MM SCH ×2 (08:27→20:39)
[2021-05-01] MEDS: Heparin 25,000UNIT/250ML 1/2NS 25,000 UNIT/250 ML IV.SOLN IVC SCH (12:05)
[2021-05-01] MEDS ORDERED: *HR* LORazepam 1 MG TABLET PO ONE (15:10)
[2021-05-01] MEDS: Meropenem 1,000 MG in Water for inj. (sterile) 20 ML IVP SCH (15:31)
[2021-05-01] MEDS: Ferrous Sulfate Oral Soln 300 MG/5 ML UDC GTUBE SCH (17:14)
[2021-05-01 19:22] LABS: Hematocrit 28.5 % (37.5-50.1); Hemoglobin 8.9 g/dL (12.9-16.9); Mean Corpuscular HGB Conc 31.2 g/dL (31.6-35.5); Mean Platelet Volume 9.2 fL (9.4-12.4); Platelet Count 163 K/mcL (140-400); Red Blood Count 2.97 M/mcL (4.19-5.50); Red Cell Distribution Width 16.4 % (11.5-14.5); White Blood Count 6.3 K/mcL (4.3-11.1)
[2021-05-01] MEDS: QUEtiapine Fumarate 25 MG TABLET PO SCH (20:39)
[2021-05-01] MEDS: Lactulose Oral Soln 20 GM/30 ML UDC PO SCH (20:39)
[2021-05-01] MEDS: Hydrocortisone 100 MG/60 ML ENEMA RC SCH ×2 (20:39→21:01)
[2021-05-01] MEDS: Melatonin 3 MG TABLET PO SCH (20:39)
[2021-05-01] MEDS: Mirtazapine 15 MG TABLET PO SCH (20:39)
[2021-05-01] MEDS: traZODone 50 MG TABLET PO SCH (20:40)
[2021-05-02] MEDS: Heparin 25,000UNIT/250ML 1/2NS 25,000 UNIT/250 ML IV.SOLN IVC SCH ×2 (02:47→17:00)
[2021-05-02 04:40] LABS: Hematocrit 24.6 % (37.5-50.1); Hemoglobin 7.8 g/dL (12.9-16.9); Mean Corpuscular HGB Conc 31.7 g/dL (31.6-35.5); Mean Corpuscular Volume 94.6 fL (83.0-100.0); Mean Platelet Volume 9.4 fL (9.4-12.4); Platelet Count 151 K/mcL (140-400); Red Cell Distribution Width 16.4 % (11.5-14.5); White Blood Count 4.9 K/mcL (4.3-11.1)
[2021-05-02 04:58] LABS: Calcium 8.5 mg/dL (8.6-10.3); Potassium 4.7 mEq/L (3.5-5.1)
[2021-05-02] MEDS: Budesonide Neb 0.5 MG/2 ML IH SCH ×2 (08:05→21:01)
[2021-05-02] MEDS: carvediloL 25 MG TABLET GTUBE SCH ×2 (08:11→17:24)
[2021-05-02] MEDS: amLODIPine 5 MG TABLET GTUBE SCH (08:11)
[2021-05-02] MEDS: Magnesium Oxide 400 MG TABLET PO SCH (08:54)
[2021-05-02] MEDS: Renal Vitamin 1 CAP CAPSULE PO SCH (08:54)
[2021-05-02] MEDS: Chlorhexidine Rinse 15 ML MOUTHWASH MM SCH ×2 (08:54→20:22)
[2021-05-02] MEDS ORDERED: *HR* Heparin 10,000 UNIT/10 ML VIAL IV PRN (09:39)
[2021-05-02] MEDS ORDERED: 0.9 % Sodium Chloride 250 ML IVC PRN (09:39)
[2021-05-02] MEDS: Loratadine 10 MG TABLET PO SCH (15:49)
[2021-05-02] MEDS: Fluticasone Propionate Nasal 50 MCG/SPRAY BOTTLE NS SCH (15:49)
[2021-05-02] MEDS: Meropenem 1,000 MG in Water for inj. (sterile) 20 ML IVP SCH (15:51)
[2021-05-02] MEDS: Albuterol 2.5 MG/3 ML NEBULIZER IH PRN (16:03)
[2021-05-02 17:02] LABS: Hematocrit 27.4 % (37.5-50.1); Hemoglobin 8.9 g/dL (12.9-16.9); Mean Corpuscular HGB Conc 32.5 g/dL (31.6-35.5); Mean Corpuscular Hemoglobin 30.3 pg (28.0-33.3); Mean Corpuscular Volume 93.2 fL (83.0-100.0); Mean Platelet Volume 9.4 fL (9.4-12.4); Platelet Count 172 K/mcL (140-400); Red Blood Count 2.94 M/mcL (4.19-5.50); Red Cell Distribution Width 16.4 % (11.5-14.5); White Blood Count 5.1 K/mcL (4.3-11.1)
[2021-05-02] MEDS: Ferrous Sulfate Oral Soln 300 MG/5 ML UDC GTUBE SCH (17:24)
[2021-05-02] MEDS: Lactulose Oral Soln 20 GM/30 ML UDC PO SCH (20:21)
[2021-05-02] MEDS: traZODone 50 MG TABLET PO SCH (20:22)
[2021-05-02] MEDS: QUEtiapine Fumarate 25 MG TABLET PO SCH (20:23)
[2021-05-02] MEDS: Mirtazapine 15 MG TABLET PO SCH (20:23)
[2021-05-02] MEDS: Melatonin 3 MG TABLET PO SCH (20:23)
[2021-05-02] MEDS: Gabapentin 400 MG CAPSULE GTUBE PRN (21:57)
[2021-05-03] MEDS: Hydrocortisone 100 MG/60 ML ENEMA RC SCH ×2 (00:28→21:25)
[2021-05-03 04:30] LABS: Hematocrit 23.4 % (37.5-50.1); Hemoglobin 7.6 g/dL (12.9-16.9); Mean Corpuscular HGB Conc 32.5 g/dL (31.6-35.5); Mean Corpuscular Hemoglobin 30.3 pg (28.0-33.3); Mean Corpuscular Volume 93.2 fL (83.0-100.0); Mean Platelet Volume 9.2 fL (9.4-12.4); Platelet Count 150 K/mcL (140-400); Red Blood Count 2.51 M/mcL (4.19-5.50); Red Cell Distribution Width 16.6 % (11.5-14.5); White Blood Count 4.6 K/mcL (4.3-11.1)
[2021-05-03 04:43] LABS: Heparin anti-factor XA UFH 0.37 IU/mL (0.30-0.70)
[2021-05-03 04:44] LABS: INR 1.2; Prothrombin Time 13.8 Seconds (9.4-12.1)
[2021-05-03 04:48] LABS: Calcium 8.3 mg/dL (8.6-10.3); Potassium 4.3 mEq/L (3.5-5.1)
[2021-05-03 05:05] LABS: Activated Partial Thrombo Time 132.5 Seconds (26.0-36.0)
[2021-05-03 06:51] LABS: INR 1.3; Prothrombin Time 14.4 Seconds (9.4-12.1)
[2021-05-03 07:06] LABS: Activated Partial Thrombo Time 115.7 Seconds (26.0-36.0)
[2021-05-03] MEDS: Budesonide Neb 0.5 MG/2 ML IH SCH ×2 (08:13→21:13)
[2021-05-03] MEDS: carvediloL 25 MG TABLET GTUBE SCH ×2 (08:18→16:23)
[2021-05-03] MEDS: Loratadine 10 MG TABLET PO SCH (08:18)
[2021-05-03] MEDS: Renal Vitamin 1 CAP CAPSULE PO SCH (08:18)
[2021-05-03] MEDS: Magnesium Oxide 400 MG TABLET PO SCH (08:18)
[2021-05-03] MEDS: amLODIPine 5 MG TABLET GTUBE SCH (08:18)
[2021-05-03] MEDS: Chlorhexidine Rinse 15 ML MOUTHWASH MM SCH ×2 (08:22→21:25)
[2021-05-03] MEDS: Fluticasone Propionate Nasal 50 MCG/SPRAY BOTTLE NS SCH (10:13)
[2021-05-03] MEDS: Meropenem 1,000 MG in Water for inj. (sterile) 20 ML IVP SCH (16:22)
[2021-05-03] MEDS: *HR* LORazepam 2 MG/ML VIAL IVP ONE (17:13)
[2021-05-03] MEDS: Ferrous Sulfate Oral Soln 300 MG/5 ML UDC GTUBE SCH (17:13)
[2021-05-03 18:15] LABS: Hemoglobin 8.8 g/dL (12.9-16.9); Mean Corpuscular HGB Conc 31.4 g/dL (31.6-35.5); Mean Corpuscular Hemoglobin 29.9 pg (28.0-33.3); Mean Corpuscular Volume 95.2 fL (83.0-100.0); Mean Platelet Volume 9.5 fL (9.4-12.4); Platelet Count 172 K/mcL (140-400); Red Blood Count 2.94 M/mcL (4.19-5.50); White Blood Count 6.1 K/mcL (4.3-11.1)
[2021-05-03] MEDS: traZODone 50 MG TABLET PO SCH (21:25)
[2021-05-03] MEDS: QUEtiapine Fumarate 25 MG TABLET PO SCH (21:25)
[2021-05-03] MEDS: Melatonin 3 MG TABLET PO SCH (21:25)
[2021-05-03] MEDS: Mirtazapine 15 MG TABLET PO SCH (21:25)
[2021-05-03] MEDS: Lactulose Oral Soln 20 GM/30 ML UDC PO SCH (21:25)
[2021-05-04] MEDS: Heparin 25,000UNIT/250ML 1/2NS 25,000 UNIT/250 ML IV.SOLN IVC SCH ×2 (03:00→16:31)
[2021-05-04 05:42] LABS: Hematocrit 22.8 % (37.5-50.1); Hemoglobin 7.4 g/dL (12.9-16.9); Mean Corpuscular HGB Conc 32.5 g/dL (31.6-35.5); Mean Corpuscular Hemoglobin 30.7 pg (28.0-33.3); Mean Corpuscular Volume 94.6 fL (83.0-100.0); Mean Platelet Volume 9.5 fL (9.4-12.4); Platelet Count 152 K/mcL (140-400); Red Blood Count 2.41 M/mcL (4.19-5.50); Red Cell Distribution Width 16.7 % (11.5-14.5)
[2021-05-04 06:04] LABS: Calcium 8.4 mg/dL (8.6-10.3); Potassium 4.5 mEq/L (3.5-5.1)
[2021-05-04] MEDS: Budesonide Neb 0.5 MG/2 ML IH SCH ×2 (07:43→20:16)
[2021-05-04] MEDS: Chlorhexidine Rinse 15 ML MOUTHWASH MM SCH ×2 (08:42→20:12)
[2021-05-04] MEDS: amLODIPine 5 MG TABLET GTUBE SCH (08:43)
[2021-05-04] MEDS: Magnesium Oxide 400 MG TABLET PO SCH (08:43)
[2021-05-04] MEDS: Loratadine 10 MG TABLET PO SCH (08:43)
[2021-05-04] MEDS: Renal Vitamin 1 CAP CAPSULE PO SCH (08:43)
[2021-05-04] MEDS: carvediloL 25 MG TABLET GTUBE SCH ×2 (08:44→17:35)
[2021-05-04] MEDS: Fluticasone Propionate Nasal 50 MCG/SPRAY BOTTLE NS SCH (08:47)
[2021-05-04] MEDS ORDERED: 0.9 % Sodium Chloride 250 ML IVC PRN (10:31)
[2021-05-04] MEDS ORDERED: *HR* Heparin 10,000 UNIT/10 ML VIAL IV PRN (10:31)
[2021-05-04 15:52] LABS: Hematocrit 27.9 % (37.5-50.1); Mean Corpuscular HGB Conc 32.3 g/dL (31.6-35.5); Platelet Count 171 K/mcL (140-400)
[2021-05-04] MEDS: Albuterol 2.5 MG/3 ML NEBULIZER IH PRN ×2 (15:55→20:17)
[2021-05-04] MEDS: Ferrous Sulfate Oral Soln 300 MG/5 ML UDC GTUBE SCH (17:37)
[2021-05-04] MEDS: Lactulose Oral Soln 20 GM/30 ML UDC PO SCH (20:12)
[2021-05-04] MEDS: Mirtazapine 15 MG TABLET PO SCH (20:13)
[2021-05-04] MEDS: Melatonin 3 MG TABLET PO SCH (20:13)
[2021-05-04] MEDS: Apixaban 5 MG TABLET PO SCH (20:13)
[2021-05-04] MEDS: traZODone 50 MG TABLET PO SCH (20:13)
[2021-05-04] MEDS: QUEtiapine Fumarate 25 MG TABLET PO SCH (20:13)
[2021-05-04] MEDS: Hydrocortisone 100 MG/60 ML ENEMA RC SCH (20:13)
[2021-05-05] MEDS: Albuterol 2.5 MG/3 ML NEBULIZER IH PRN (03:37)
[2021-05-05 04:26] LABS: Hematocrit 24.3 % (37.5-50.1); Hemoglobin 7.8 g/dL (12.9-16.9); Mean Corpuscular HGB Conc 32.1 g/dL (31.6-35.5); Mean Corpuscular Hemoglobin 30.1 pg (28.0-33.3); Mean Corpuscular Volume 93.8 fL (83.0-100.0); Platelet Count 161 K/mcL (140-400); Red Blood Count 2.59 M/mcL (4.19-5.50); Red Cell Distribution Width 16.9 % (11.5-14.5); White Blood Count 4.9 K/mcL (4.3-11.1)
[2021-05-05 04:45] LABS: Calcium 8.2 mg/dL (8.6-10.3); Magnesium 1.7 mg/dL (1.6-2.6)
[2021-05-05 06:44] VITALS: TEMP 99
[2021-05-05] MEDS: Magnesium Oxide 400 MG TABLET PO SCH (07:36)
[2021-05-05] MEDS: carvediloL 25 MG TABLET GTUBE SCH (07:36)
[2021-05-05] MEDS: Loratadine 10 MG TABLET PO SCH (07:37)
[2021-05-05] MEDS: amLODIPine 5 MG TABLET GTUBE SCH (07:37)
[2021-05-05] MEDS: Renal Vitamin 1 CAP CAPSULE PO SCH (07:38)
[2021-05-05] MEDS: Fluticasone Propionate Nasal 50 MCG/SPRAY BOTTLE NS SCH (07:38)
[2021-05-05] MEDS: Apixaban 5 MG TABLET PO SCH (07:38)
[2021-05-05] MEDS: Chlorhexidine Rinse 15 ML MOUTHWASH MM SCH (07:38)
[2021-05-05] MEDS: Budesonide Neb 0.5 MG/2 ML IH SCH (07:57)
[2021-05-05] MEDS ORDERED: *HR* LORazepam 2 MG/ML VIAL IVP ONE (09:24)
[2021-05-05] MEDS: *HR* LORazepam 2 MG/ML VIAL IVP ONE (09:34)
[2021-05-05 10:00] VITALS: BP 157/82; PULSE 89; O2SAT 98
== END 2021-05-05 10:23 | disposition short-term general hospital (02) | DRG 673 ==
LOC: 2ANU 09:08 → EMEROOARM 09:08 → 3NENU 16:02 → 2NNU 18:14 → SUATTDRO 04-12 18:31
PROVIDERS: ADMIT Internal Medicine; ATTEND Internal Medicine
PROC: IRPERMA (2021-04-19 12:00)

== ENCOUNTER 2021-06-25 13:54 | Observation (INO) ==
[2021-06-25] MEDS ORDERED: *HR* LORazepam 2 MG/ML VIAL IVP STA (15:01)
[2021-06-25 15:10] LABS: Basophils % 0.3 %; Eosinophils # 0.1 K/mcL (0.0-0.6); Eosinophils % 1.2 %; Hematocrit 23.1 % (37.5-50.1); Hemoglobin 7.5 g/dL (12.9-16.9); Immature Granulocytes % 0.4 % (0-4); Lymphocytes # 0.2 K/mcL (0.6-4.6); Mean Corpuscular HGB Conc 32.5 g/dL (31.6-35.5); Mean Corpuscular Hemoglobin 30.9 pg (28.0-33.3); Mean Corpuscular Volume 95.1 fL (83.0-100.0); Mean Platelet Volume 10.2 fL (9.4-12.4); Monocytes # 0.4 K/mcL (0.0-1.3); Monocytes % 5.6 %; Neutrophils # 6.6 K/mcL (1.6-8.9); Platelet Count 101 K/mcL (140-400); Red Blood Count 2.43 M/mcL (4.19-5.50); Red Cell Distribution Width 18.1 % (11.5-14.5); Segmented Neutrophils % 89.5 %; White Blood Count 7.4 K/mcL (4.3-11.1)
[2021-06-25 15:30] LABS: Calcium 9.4 mg/dL (8.6-10.3); Potassium 5.5 mEq/L (3.5-5.1)
[2021-06-25] MEDS ORDERED: *HR* OxyCODONE/APAP 5/325 TABLET GTUBE PRN (16:23)
[2021-06-25] MEDS ORDERED: Naloxone 0.4 MG/ML INJ IVP PRN (16:27)
[2021-06-25] MEDS ORDERED: Ondansetron 4 MG/2 ML VIAL IVP PRN (16:27)
[2021-06-25] MEDS ORDERED: *HR* LORazepam 0.5 MG TABLET GTUBE SCH (16:30)
[2021-06-25] MEDS: carvediloL 25 MG TABLET PO SCH (18:08)
[2021-06-25] MEDS ORDERED: Budesonide Neb 0.25 MG/2 ML ONE (19:48)
[2021-06-25] MEDS: Budesonide Neb 0.5 MG/2 ML IH SCH (19:58)
[2021-06-25] MEDS ORDERED: *HR* OxyCODONE/APAP 5/325 TABLET PO PRN (20:00)
[2021-06-25] MEDS: amLODIPine 5 MG TABLET PO SCH (20:47)
[2021-06-25] MEDS: *HR* LORazepam 0.5 MG TABLET PO SCH (20:47)
[2021-06-25] MEDS: Apixaban 5 MG TABLET PO SCH (20:47)
[2021-06-25] MEDS: Silver Sulfadiazine 50 GM TUBE TP SCH (20:54)
[2021-06-25] MEDS ORDERED: traZODone 50 MG TABLET PO SCH (21:00)
[2021-06-26] MEDS: *HR* LORazepam 0.5 MG TABLET PO SCH ×3 (02:54→17:41)
[2021-06-26 03:58] LABS: Albumin 3.1 g/dL (3.5-5.7); Albumin/Globulin Ratio 0.9 (1.1-2.2); Bilirubin,Total 0.6 mg/dL (0.3-1.0); Calcium 9.2 mg/dL (8.6-10.3); Globulin 3.4 g/dL (2.4-3.5); Phosphorous 5.4 mg/dL (2.7-4.5); Potassium 5.5 mEq/L (3.5-5.1); Total Protein 6.5 g/dL (6.4-8.9)
[2021-06-26] MEDS: Pantoprazole 40 MG VIAL IVP SCH ×2 (04:37→17:41)
[2021-06-26] MEDS: Silver Sulfadiazine 50 GM TUBE TP SCH (07:40)
[2021-06-26] MEDS ORDERED: 0.9 % Sodium Chloride 250 ML IVC PRN (07:49)
[2021-06-26] MEDS ORDERED: 0.9 % Sodium Chloride 1,000 ML PRIME SCH (08:00)
[2021-06-26] MEDS: carvediloL 25 MG TABLET PO SCH ×2 (08:20→17:41)
[2021-06-26] MEDS: amLODIPine 5 MG TABLET PO SCH (08:20)
[2021-06-26] MEDS: Apixaban 5 MG TABLET PO SCH (08:21)
[2021-06-26] MEDS: Budesonide Neb 0.5 MG/2 ML IH SCH (11:05)
[2021-06-26 16:09] VITALS: BP 153/110; TEMP 98.2; O2SAT 100
[2021-06-26 18:27] VITALS: PULSE 89
[2021-06-26 18:32] LABS: Adenovirus Not Detected (Not Detect); Bordetella Pertussis Not Detected (Not Detect); Chlamydophila pneumoniae Not Detected (Not Detect); Coronavirus 229E Not Detected (Not Detect); Coronavirus HKU1 Not Detected (Not Detect); Coronavirus NL63 Not Detected (Not Detect); Coronavirus OC43 Not Detected (Not Detect); Human Metapneumovirus Not Detected (Not Detect); Human Rhinovirus/Enterovirus Not Detected (Not Detect); Influenza A Subtype 2009 H1 Not Detected (Not Detect); Influenza B Not Detected (Not Detect); Mycoplasma pneumoniae Not Detected (Not Detect); Parainfluenza Virus 1 Not Detected (Not Detect); Parainfluenza Virus 2 Not Detected (Not Detect); Parainfluenza Virus 3 Not Detected (Not Detect); Parainfluenza Virus 4 Not Detected (Not Detect); Respiratory Syncytial Virus Not Detected (Not Detect); SARS-CoV-2 Not Detected (Not Detect)
== END 2021-06-26 18:10 ==
LOC: EMEROOARM 13:54 → 2NNU 13:54 → SUATTDRO 16:28 → 2NNU 17:16
PROVIDERS: ADMIT Internal Medicine; ATTEND Internal Medicine

== ENCOUNTER 2021-08-13 11:38 | Inpatient (IN) ==
[2021-08-13] MEDS ORDERED: Acetaminophen 325 MG TABLET PO PRN (13:50)
[2021-08-13] MEDS ORDERED: Naloxone 0.4 MG/ML INJ IVP PRN (13:50)
[2021-08-13] MEDS ORDERED: Ondansetron 4 MG/2 ML VIAL IVP PRN (13:50)
[2021-08-13] MEDS: *HR* LORazepam 0.5 MG TABLET GTUBE SCH ×2 (14:29→21:14)
[2021-08-13] MEDS: amLODIPine 5 MG TABLET GTUBE SCH (14:42)
[2021-08-13] MEDS: carvediloL 25 MG TABLET GTUBE SCH ×2 (14:42→21:14)
[2021-08-13] MEDS ORDERED: *HR* Heparin 10,000 UNIT/10 ML VIAL IV PRN (15:24)
[2021-08-13] MEDS ORDERED: 0.9 % Sodium Chloride 250 ML IVC PRN (15:24)
[2021-08-13] MEDS ORDERED: 0.9 % Sodium Chloride 1,000 ML PRIME SCH (15:30)
[2021-08-13] MEDS ORDERED: Albuterol 2.5 MG/3 ML NEBULIZER ONE (19:40)
[2021-08-13] MEDS: Albuterol 2.5 MG/3 ML NEBULIZER IH SCH (19:49)
[2021-08-13] MEDS: Apixaban 5 MG TABLET GTUBE SCH (21:14)
[2021-08-13] MEDS: traZODone 50 MG TABLET GTUBE SCH (21:14)
[2021-08-13] MEDS: *HR* OxyCODONE/APAP 5/325 TABLET GTUBE PRN (21:24)
[2021-08-13] MEDS: Melatonin 3 MG TABLET PO PRN (21:24)
[2021-08-14] MEDS: *HR* LORazepam 0.5 MG TABLET GTUBE SCH ×4 (02:13→20:39)
[2021-08-14 03:26] LABS: Hematocrit 21.5 % (37.5-50.1); Hemoglobin 6.5 g/dL (12.9-16.9); Mean Corpuscular HGB Conc 30.2 g/dL (31.6-35.5); Mean Corpuscular Hemoglobin 29.7 pg (28.0-33.3); Mean Corpuscular Volume 98.2 fL (83.0-100.0); Mean Platelet Volume 8.7 fL (9.4-12.4); Platelet Count 109 K/mcL (140-400); Red Blood Count 2.19 M/mcL (4.19-5.50); White Blood Count 4.8 K/mcL (4.3-11.1)
[2021-08-14 03:39] LABS: Calcium 8.8 mg/dL (8.6-10.3); Magnesium 1.6 mg/dL (1.6-2.6); Phosphorous 4.2 mg/dL (2.7-4.5); Potassium 3.7 mEq/L (3.5-5.1)
[2021-08-14] MEDS ORDERED: *HR* Labetalol 20 MG/4 ML SYRINGE IVP ONE ×2 (06:06→16:56)
[2021-08-14] MEDS: Albuterol 2.5 MG/3 ML NEBULIZER IH SCH ×2 (07:21→20:17)
[2021-08-14] MEDS: carvediloL 25 MG TABLET GTUBE SCH ×2 (07:28→18:52)
[2021-08-14] MEDS: Apixaban 5 MG TABLET GTUBE SCH ×2 (07:28→20:39)
[2021-08-14] MEDS: amLODIPine 5 MG TABLET GTUBE SCH (07:29)
[2021-08-14] MEDS ORDERED: 0.9 % Sodium Chloride 250 ML IVC SCH (07:45)
[2021-08-14] MEDS ORDERED: *HR* Metoprolol 5 MG/5 ML VIAL IVP ONE (14:28)
[2021-08-14] MEDS ORDERED: *HR* LORazepam 2 MG/ML VIAL IVP ONE (15:33)
[2021-08-14 17:48] LABS: Calcium 9.3 mg/dL (8.6-10.3); Magnesium 1.9 mg/dL (1.6-2.6); Potassium 4.4 mEq/L (3.5-5.1)
[2021-08-14] MEDS: traZODone 50 MG TABLET GTUBE SCH (20:39)
[2021-08-14] MEDS ORDERED: carvediloL 25 MG TABLET GTUBE SCH (21:00)
[2021-08-14] MEDS: Melatonin 3 MG TABLET PO PRN (23:28)
[2021-08-15 01:13] LABS: Basophils % 0.3 %; Eosinophils # 0.2 K/mcL (0.0-0.6); Eosinophils % 2.2 %; Hematocrit 26.7 % (37.5-50.1); Immature Granulocytes % 0.3 % (0-4); Lymphocytes # 0.3 K/mcL (0.6-4.6); Lymphocytes % 4.6 %; Mean Corpuscular HGB Conc 30.7 g/dL (31.6-35.5); Mean Corpuscular Hemoglobin 29.5 pg (28.0-33.3); Mean Platelet Volume 9.2 fL (9.4-12.4); Monocytes # 0.6 K/mcL (0.0-1.3); Monocytes % 8.5 %; Neutrophils # 5.7 K/mcL (1.6-8.9); Platelet Count 120 K/mcL (140-400); Red Blood Count 2.78 M/mcL (4.19-5.50); Red Cell Distribution Width 20.3 % (11.5-14.5); Segmented Neutrophils % 84.1 %; White Blood Count 6.7 K/mcL (4.3-11.1)
[2021-08-15 01:14] LABS: Hemoglobin 8.2 g/dL (12.9-16.9)
[2021-08-15 01:33] LABS: Albumin 3.2 g/dL (3.5-5.7); Albumin/Globulin Ratio 0.9 (1.1-2.2); Bilirubin,Total 0.7 mg/dL (0.3-1.0); Calcium 9.4 mg/dL (8.6-10.3); Globulin 3.5 g/dL (2.4-3.5); Potassium 4.2 mEq/L (3.5-5.1); Total Protein 6.7 g/dL (6.4-8.9)
[2021-08-15] MEDS: *HR* LORazepam 0.5 MG TABLET GTUBE SCH ×4 (02:38→21:02)
[2021-08-15] MEDS ORDERED: *HR* Labetalol 20 MG/4 ML SYRINGE IVP ONE (03:16)
[2021-08-15] MEDS: *HR* OxyCODONE/APAP 5/325 TABLET GTUBE PRN (04:03)
[2021-08-15] MEDS: amLODIPine 5 MG TABLET GTUBE SCH (07:28)
[2021-08-15] MEDS: carvediloL 25 MG TABLET GTUBE SCH ×2 (07:29→21:01)
[2021-08-15] MEDS: Apixaban 5 MG TABLET GTUBE SCH ×2 (07:30→21:02)
[2021-08-15] MEDS: Albuterol 2.5 MG/3 ML NEBULIZER IH SCH ×2 (07:32→20:28)
[2021-08-15] MEDS ORDERED: 0.9 % Sodium Chloride 250 ML IVC PRN (08:01)
[2021-08-15] MEDS ORDERED: *HR* Heparin 10,000 UNIT/10 ML VIAL IV PRN (08:01)
[2021-08-15] MEDS: traZODone 50 MG TABLET GTUBE SCH (21:01)
[2021-08-16] MEDS: *HR* LORazepam 0.5 MG TABLET GTUBE SCH ×4 (03:11→20:36)
[2021-08-16 05:48] LABS: Basophils % 0.2 %; Eosinophils # 0.2 K/mcL (0.0-0.6); Eosinophils % 3.3 %; Hematocrit 24.8 % (37.5-50.1); Hemoglobin 7.7 g/dL (12.9-16.9); Immature Granulocytes % 0.2 % (0-4); Lymphocytes # 0.3 K/mcL (0.6-4.6); Lymphocytes % 7.1 %; Mean Corpuscular Hemoglobin 29.6 pg (28.0-33.3); Mean Corpuscular Volume 95.4 fL (83.0-100.0); Mean Platelet Volume 9.3 fL (9.4-12.4); Monocytes # 0.5 K/mcL (0.0-1.3); Neutrophils # 3.8 K/mcL (1.6-8.9); Platelet Count 107 K/mcL (140-400); Red Cell Distribution Width 20.3 % (11.5-14.5); Segmented Neutrophils % 79.2 %; White Blood Count 4.8 K/mcL (4.3-11.1)
[2021-08-16 06:08] LABS: Albumin 2.8 g/dL (3.5-5.7); Albumin/Globulin Ratio 0.8 (1.1-2.2); Bilirubin,Total 0.8 mg/dL (0.3-1.0); Calcium 8.9 mg/dL (8.6-10.3); Globulin 3.5 g/dL (2.4-3.5); Potassium 3.6 mEq/L (3.5-5.1); Total Protein 6.3 g/dL (6.4-8.9)
[2021-08-16] MEDS: Apixaban 5 MG TABLET GTUBE SCH ×2 (08:10→20:37)
[2021-08-16] MEDS: amLODIPine 5 MG TABLET GTUBE SCH (08:11)
[2021-08-16] MEDS: carvediloL 25 MG TABLET GTUBE SCH ×2 (08:11→20:36)
[2021-08-16] MEDS: Albuterol 2.5 MG/3 ML NEBULIZER IH SCH ×2 (08:27→22:52)
[2021-08-16] MEDS ORDERED: *HR* Heparin 10,000 UNIT/10 ML VIAL IV PRN (08:45)
[2021-08-16] MEDS ORDERED: 0.9 % Sodium Chloride 250 ML IVC PRN (08:45)
[2021-08-16] MEDS: *HR* OxyCODONE/APAP 5/325 TABLET GTUBE PRN (15:30)
[2021-08-16] MEDS: traZODone 50 MG TABLET GTUBE SCH (20:36)
[2021-08-17] MEDS: *HR* LORazepam 0.5 MG TABLET GTUBE SCH ×4 (02:18→20:08)
[2021-08-17 03:07] LABS: Calcium 9.1 mg/dL (8.6-10.3); Potassium 3.7 mEq/L (3.5-5.1)
[2021-08-17] MEDS: Albuterol 2.5 MG/3 ML NEBULIZER IH SCH ×2 (07:55→19:55)
[2021-08-17] MEDS: carvediloL 25 MG TABLET GTUBE SCH ×2 (08:33→20:08)
[2021-08-17] MEDS: Apixaban 5 MG TABLET GTUBE SCH ×2 (08:33→20:08)
[2021-08-17] MEDS: amLODIPine 5 MG TABLET GTUBE SCH (08:34)
[2021-08-17] MEDS ORDERED: *HR* Heparin 10,000 UNIT/10 ML VIAL IV PRN (08:47)
[2021-08-17] MEDS ORDERED: 0.9 % Sodium Chloride 250 ML IVC PRN (08:47)
[2021-08-17] MEDS ORDERED: 0.9 % Sodium Chloride 1,000 ML PRIME SCH (09:00)
[2021-08-17] MEDS ORDERED: *HR* FentaNYL (PF) 100 MCG/2 ML VIAL ONE (09:40)
[2021-08-17] MEDS ORDERED: *HR* Midazolam HCl 5 MG/5 ML VIAL IVP ONE ×2 (09:41→09:45)
[2021-08-17] MEDS ORDERED: *HR* FentaNYL (PF) 100 MCG/2 ML VIAL IVP ONE (09:45)
[2021-08-17 19:43] VITALS: BP 155/84; PULSE 86; TEMP 98.7
[2021-08-17 20:00] VITALS: O2SAT 98
[2021-08-17] MEDS: traZODone 50 MG TABLET GTUBE SCH (20:08)
== END 2021-08-18 01:00 | DRG 291 ==
LOC: 2NNU → SUATTDRO 13:20
PROVIDERS: ADMIT Internal Medicine; ATTEND Internal Medicine

== ENCOUNTER 2021-10-01 08:20 | Inpatient (IN) ==
[2021-10-01] MEDS ORDERED: Acetaminophen 325 MG TABLET PO PRN (14:23)
[2021-10-01] MEDS ORDERED: Naloxone 0.4 MG/ML INJ IVP PRN (14:23)
[2021-10-01] MEDS ORDERED: Ondansetron 4 MG/2 ML VIAL IVP PRN (14:23)
[2021-10-01] MEDS ORDERED: Levalbuterol Neb 1.25 MG/3 ML IH PRN (14:56)
[2021-10-01] MEDS ORDERED: Iopamidol - 370 500 ML MLS IVP ONE (14:56)
[2021-10-01] MEDS ORDERED: Amiodarone Premix 360 MG/200 ML BAG IVC ONE (15:21)
[2021-10-01] MEDS: Amiodarone Premix 360 MG/200 ML BAG IVC SCH (15:29)
[2021-10-01] MEDS: *HR* LORazepam 0.5 MG TABLET PO SCH ×2 (15:37→21:30)
[2021-10-01] MEDS ORDERED: *HR* Metoprolol 5 MG/5 ML VIAL IVP ONE ×2 (16:02→16:03)
[2021-10-01] MEDS ORDERED: Amiodarone Premix 150 MG/100 ML BAG IVPB ONE ×2 (16:20→17:06)
[2021-10-01] MEDS: DilTIAZem 50 MG/50 ML IV.SOLN IVC SCH (16:45)
[2021-10-01] MEDS: traZODone 50 MG TABLET PO SCH (21:30)
[2021-10-02] MEDS: DilTIAZem 50 MG/50 ML IV.SOLN IVC SCH ×5 (01:01→16:29)
[2021-10-02] MEDS: Amiodarone Premix 360 MG/200 ML BAG IVC SCH ×2 (01:02→12:13)
[2021-10-02 03:40] LABS: Basophils % 0.4 %; Eosinophils # 0.1 K/mcL (0.0-0.6); Hematocrit 23.9 % (37.5-50.1); Hemoglobin 7.2 g/dL (12.9-16.9); Immature Granulocytes % 0.2 % (0-4); Lymphocytes # 0.3 K/mcL (0.6-4.6); Lymphocytes % 5.3 %; Mean Corpuscular HGB Conc 30.1 g/dL (31.6-35.5); Mean Corpuscular Hemoglobin 30.3 pg (28.0-33.3); Mean Corpuscular Volume 100.4 fL (83.0-100.0); Mean Platelet Volume 9.9 fL (9.4-12.4); Monocytes # 0.5 K/mcL (0.0-1.3); Monocytes % 9.7 %; Neutrophils # 4.4 K/mcL (1.6-8.9); Platelet Count 181 K/mcL (140-400); Red Blood Count 2.38 M/mcL (4.19-5.50); Red Cell Distribution Width 18.6 % (11.5-14.5); Segmented Neutrophils % 83.4 %; White Blood Count 5.3 K/mcL (4.3-11.1)
[2021-10-02 03:50] LABS: INR 1.4; Prothrombin Time 15.7 Seconds (9.4-12.1)
[2021-10-02 03:53] LABS: Activated Partial Thrombo Time 40.7 Seconds (26.0-36.0)
[2021-10-02 04:01] LABS: Albumin 2.7 g/dL (3.5-5.7); Albumin/Globulin Ratio 0.8 (1.1-2.2); Bilirubin,Total 0.4 mg/dL (0.3-1.0); Calcium 9.1 mg/dL (8.6-10.3); Globulin 3.5 g/dL (2.4-3.5); Phosphorous 5.7 mg/dL (2.7-4.5); Potassium 4.8 mEq/L (3.5-5.1); Total Protein 6.2 g/dL (6.4-8.9)
[2021-10-02] MEDS: *HR* LORazepam 0.5 MG TABLET PO SCH ×4 (04:36→20:23)
[2021-10-02] MEDS ORDERED: Perflutren Lipid Microsphere 1.3 ML in 0.9 % Sodium Chloride 8.7 ML IVP PRN (12:22)
[2021-10-02] MEDS: traZODone 50 MG TABLET PO SCH (20:23)
[2021-10-02] MEDS: carvediloL 6.25 MG TABLET PO SCH (20:23)
[2021-10-03] MEDS: Amiodarone Premix 360 MG/200 ML BAG IVC SCH (00:45)
[2021-10-03] MEDS: *HR* LORazepam 0.5 MG TABLET PO SCH ×4 (06:24→22:36)
[2021-10-03] MEDS ORDERED: 0.9 % Sodium Chloride 250 ML IVC PRN (08:32)
[2021-10-03] MEDS ORDERED: *HR* Heparin 10,000 UNIT/10 ML VIAL IV PRN (08:32)
[2021-10-03] MEDS ORDERED: 0.9 % Sodium Chloride 2,000 ML PRIME SCH (08:45)
[2021-10-03] MEDS: carvediloL 6.25 MG TABLET PO SCH ×2 (08:51→16:09)
[2021-10-03] MEDS ORDERED: Apixaban 2.5 MG TABLET PO SCH (09:00)
[2021-10-03 09:31] LABS: Hematocrit 26.1 % (37.5-50.1); Hemoglobin 7.9 g/dL (12.9-16.9); Mean Corpuscular HGB Conc 30.3 g/dL (31.6-35.5); Mean Corpuscular Hemoglobin 30.3 pg (28.0-33.3); Mean Platelet Volume 9.7 fL (9.4-12.4); Platelet Count 188 K/mcL (140-400); Red Blood Count 2.61 M/mcL (4.19-5.50); White Blood Count 4.8 K/mcL (4.3-11.1)
[2021-10-03 09:52] LABS: Calcium 9.1 mg/dL (8.6-10.3); Magnesium 2.1 mg/dL (1.6-2.6); Phosphorous 6.6 mg/dL (2.7-4.5); Potassium 4.9 mEq/L (3.5-5.1)
[2021-10-03] MEDS: *HR* Amiodarone 200 MG TABLET PO SCH (20:29)
[2021-10-03] MEDS: traZODone 50 MG TABLET PO SCH (20:29)
[2021-10-04 01:59] LABS: Hematocrit 24.7 % (37.5-50.1); Hemoglobin 7.3 g/dL (12.9-16.9); Mean Corpuscular HGB Conc 29.6 g/dL (31.6-35.5); Mean Corpuscular Hemoglobin 29.6 pg (28.0-33.3); Mean Platelet Volume 10.2 fL (9.4-12.4); Platelet Count 166 K/mcL (140-400); Red Blood Count 2.47 M/mcL (4.19-5.50); White Blood Count 3.8 K/mcL (4.3-11.1)
[2021-10-04 02:21] LABS: Calcium 8.6 mg/dL (8.6-10.3); Magnesium 1.8 mg/dL (1.6-2.6); Phosphorous 4.5 mg/dL (2.7-4.5); Potassium 4.1 mEq/L (3.5-5.1)
[2021-10-04] MEDS: *HR* LORazepam 0.5 MG TABLET PO SCH ×4 (04:45→20:55)
[2021-10-04] MEDS ORDERED: Lidocaine Viscous Oral Soln 15 ML SOLUTION MM PRN (12:02)
[2021-10-04] MEDS ORDERED: 0.9 % Sodium Chloride 500 ML ONE (12:44)
[2021-10-04] MEDS: carvediloL 6.25 MG TABLET PO SCH (15:04)
[2021-10-04] MEDS: Metoprolol XL (24 HR) Succ 50 MG TAB.ER.24H PO SCH ×2 (15:05→20:55)
[2021-10-04] MEDS: *HR* Amiodarone 200 MG TABLET PO SCH ×2 (15:07→20:55)
[2021-10-04] MEDS ORDERED: Lidocaine -MPF 2% 5 ML VIAL SQ ONE (19:24)
[2021-10-04] MEDS ORDERED: EPHEDrine 50 MG/ML VIAL IVP ONE (19:24)
[2021-10-04] MEDS ORDERED: *HR* Propofol 500 MG/50 ML BOTTLE IVP ONE (19:24)
[2021-10-04] MEDS ORDERED: *HR* Phenylephrine 10 MG/ML VIAL IVC ONE (19:24)
[2021-10-04] MEDS: traZODone 50 MG TABLET PO SCH (20:55)
[2021-10-04] MEDS: Apixaban 2.5 MG TABLET PO SCH (20:55)
[2021-10-04] MEDS: Melatonin 3 MG TABLET PO PRN (23:12)
[2021-10-05] MEDS: *HR* LORazepam 0.5 MG TABLET PO SCH ×4 (03:30→21:40)
[2021-10-05 07:00] LABS: Hematocrit 25.7 % (37.5-50.1); Hemoglobin 7.6 g/dL (12.9-16.9); Mean Corpuscular HGB Conc 29.6 g/dL (31.6-35.5); Mean Corpuscular Hemoglobin 29.9 pg (28.0-33.3); Mean Corpuscular Volume 101.2 fL (83.0-100.0); Mean Platelet Volume 9.8 fL (9.4-12.4); Platelet Count 168 K/mcL (140-400); Red Blood Count 2.54 M/mcL (4.19-5.50); Red Cell Distribution Width 17.6 % (11.5-14.5); White Blood Count 4.4 K/mcL (4.3-11.1)
[2021-10-05 07:20] LABS: Calcium 7.5 mg/dL (8.6-10.3); Potassium 4.6 mEq/L (3.5-5.1)
[2021-10-05] MEDS ORDERED: 0.9 % Sodium Chloride 250 ML IVC PRN (08:55)
[2021-10-05] MEDS ORDERED: *HR* Heparin 10,000 UNIT/10 ML VIAL IV PRN (08:55)
[2021-10-05 09:26] LABS: % Iron Saturation 15 % (20-55); Iron 20 mcg/dL (65-175); Transferrin 98 mg/dL (203-362)
[2021-10-05] MEDS: *HR* Amiodarone 200 MG TABLET PO SCH ×2 (09:31→21:40)
[2021-10-05] MEDS: Apixaban 2.5 MG TABLET PO SCH ×2 (09:31→21:40)
[2021-10-05] MEDS: Metoprolol XL (24 HR) Succ 50 MG TAB.ER.24H PO SCH (09:32)
[2021-10-05 09:47] LABS: Ferritin > 1500 ng/mL (20-250)
[2021-10-05] MEDS ORDERED: Iopamidol - 370 500 ML MLS IVP ONE (15:32)
[2021-10-05] MEDS ORDERED: Metoprolol XL (24 HR) Succ 50 MG TAB.ER.24H PO SCH ×2 (21:00)
[2021-10-05] MEDS: traZODone 50 MG TABLET PO SCH (21:40)
[2021-10-06 02:08] LABS: Hemoglobin 6.6 g/dL (12.9-16.9); Mean Corpuscular Hemoglobin 29.7 pg (28.0-33.3); Mean Corpuscular Volume 99.1 fL (83.0-100.0); Mean Platelet Volume 9.6 fL (9.4-12.4); Platelet Count 159 K/mcL (140-400); Red Blood Count 2.22 M/mcL (4.19-5.50); Red Cell Distribution Width 17.5 % (11.5-14.5); White Blood Count 4.4 K/mcL (4.3-11.1)
[2021-10-06 02:27] LABS: Calcium 8.1 mg/dL (8.6-10.3); Potassium 3.7 mEq/L (3.5-5.1)
[2021-10-06] MEDS ORDERED: 0.9 % Sodium Chloride 250 ML IVC SCH (03:15)
[2021-10-06] MEDS: *HR* LORazepam 0.5 MG TABLET PO SCH ×4 (03:19→20:10)
[2021-10-06] MEDS ORDERED: 0.9 % Sodium Chloride 250 ML ONE (04:51)
[2021-10-06] MEDS: *HR* Amiodarone 200 MG TABLET PO SCH ×2 (09:16→20:10)
[2021-10-06] MEDS: Apixaban 2.5 MG TABLET PO SCH ×2 (09:16→20:09)
[2021-10-06] MEDS: Metoprolol XL (24 HR) Succ 50 MG TAB.ER.24H PO SCH ×2 (10:15→20:10)
[2021-10-06] MEDS ORDERED: Perflutren Lipid Microsphere 1.3 ML in 0.9 % Sodium Chloride 8.7 ML IVP PRN (11:17)
[2021-10-06] MEDS: Melatonin 3 MG TABLET PO PRN (20:09)
[2021-10-06] MEDS: traZODone 50 MG TABLET PO SCH (20:10)
[2021-10-07 01:27] LABS: Hematocrit 25.7 % (37.5-50.1); Hemoglobin 7.8 g/dL (12.9-16.9); Mean Corpuscular HGB Conc 30.4 g/dL (31.6-35.5); Mean Corpuscular Hemoglobin 30.1 pg (28.0-33.3); Mean Corpuscular Volume 99.2 fL (83.0-100.0); Mean Platelet Volume 9.9 fL (9.4-12.4); Platelet Count 162 K/mcL (140-400); Red Blood Count 2.59 M/mcL (4.19-5.50); Red Cell Distribution Width 18.2 % (11.5-14.5)
[2021-10-07 01:49] LABS: Calcium 8.3 mg/dL (8.6-10.3)
[2021-10-07] MEDS: *HR* LORazepam 0.5 MG TABLET PO SCH ×4 (05:12→20:29)
[2021-10-07] MEDS: Metoprolol XL (24 HR) Succ 50 MG TAB.ER.24H PO SCH ×2 (09:46→20:29)
[2021-10-07] MEDS: Apixaban 2.5 MG TABLET PO SCH ×2 (09:47→20:29)
[2021-10-07] MEDS: *HR* Amiodarone 200 MG TABLET PO SCH ×2 (09:47→20:29)
[2021-10-07] MEDS ORDERED: *HR* OxyCODONE/APAP 5/325 TABLET PO PRN (11:59)
[2021-10-07 15:55] VITALS: O2SAT 100
[2021-10-07] MEDS: traZODone 50 MG TABLET PO SCH (20:29)
[2021-10-07] MEDS: Melatonin 3 MG TABLET PO PRN (20:31)
[2021-10-08] MEDS: *HR* LORazepam 0.5 MG TABLET PO SCH ×2 (03:30→08:57)
[2021-10-08] MEDS ORDERED: 0.9 % Sodium Chloride 250 ML IVC PRN (07:32)
[2021-10-08] MEDS: *HR* Amiodarone 200 MG TABLET PO SCH (08:55)
[2021-10-08] MEDS: Apixaban 2.5 MG TABLET PO SCH (08:55)
[2021-10-08] MEDS: Metoprolol XL (24 HR) Succ 50 MG TAB.ER.24H PO SCH (08:56)
[2021-10-08 09:32] LABS: Hematocrit 27.2 % (37.5-50.1); Hemoglobin 8.3 g/dL (12.9-16.9); Mean Corpuscular HGB Conc 30.5 g/dL (31.6-35.5); Mean Corpuscular Hemoglobin 30.1 pg (28.0-33.3); Mean Corpuscular Volume 98.6 fL (83.0-100.0); Platelet Count 187 K/mcL (140-400); Red Blood Count 2.76 M/mcL (4.19-5.50); Red Cell Distribution Width 17.5 % (11.5-14.5); White Blood Count 6.2 K/mcL (4.3-11.1)
[2021-10-08 09:39] LABS: Calcium 8.4 mg/dL (8.6-10.3); Potassium 4.8 mEq/L (3.5-5.1)
[2021-10-08] MEDS ORDERED: *HR* Heparin 10,000 UNIT/10 ML VIAL IV PRN (12:43)
[2021-10-08 15:17] VITALS: PULSE 88
[2021-10-08 15:25] LABS: Influenza A PCR Negative (Negative); Influenza B PCR Negative (Negative); Resp. Syncytial Virus PCR Negative (Negative); SARS-CoV-2 by PCR (In House) Negative (Negative)
[2021-10-08 21:31] VITALS: BP 138/74; TEMP 98.1
== END 2021-10-08 19:25 | DRG 308 ==
LOC: 2NNU → SUATTDRO 10-02 07:58
PROVIDERS: ADMIT Internal Medicine; ATTEND Student in an Organized Health Care Education/Training Program